=== PATIENT | male | born 1945 | race Hispanic/Latino ===

== ENCOUNTER 2016-12-14 14:15 | Observation (INO) | payer BC, MEDICARE ==
--- NOTE | 2016-12-14 15:02 | ED PDOC ---
Arrival/HPI - General Time Seen by Provider: 12/14/16 14:23 Historian: Patient, Spouse, Other (Son) - History of Present Illness Narrative History of Present Illness (Text): 12/14/16 15:09 71 yo M w h/o COPD, CAD on asa/plavix, HTN, osteoporosis presents with c/o non- bloody, intermittently bilious emesis, intermittent x 7 days. Patient's and son are at bedside in ER and state patient has had vomiting starting Tuesday ; resolved Tuesday; returned . Patient states he has been unable to tolerate most PO intake and has only kept down small amount of fluid in the past 2 days. Patient and family state he went to PMD, Dr. Steven Dixon today, found him to be hypotensive with postural decrease in SBP of ~40 points and instructed the patient to go to the ER. Patient denies diarrhea, admits to intermittent constipation, last BM this morning, normal, non-bloody, non- mucinous. Denies CP, cough, palpitations, pleurisy, new rashes or lesions. Admits to intermittent SOB, no change from baseline, lethargy, mild fatigue. Patient's was also sick last week but with diarrhea that has since resolved without any vomiting. No other sick contacts. No recent travel. No new dietary or lifestyle changes. Time/Duration: 1 week Symptom Onset: Gradual Symptom Course: Unchanged Severity Level: 6 Past Medical History - Provider Review Nursing Documentation Reviewed: Yes - Travel History Have you recently traveled outside [place] w/in the past 3 mons?: No - Cardiac Hx Pacemaker: No - Pulmonary Hx Respiratory Disorders: Yes Hx Chronic Obstructive Pulmonary Disease (COPD): Yes - Neurological Hx Paralysis: No - HEENT Hx Cataracts: Yes (surgery) - Hematological/Oncological Hx Blood Transfusions: Yes Hx Blood Transfusion Reaction: No - Integumentary Hx Dermatological Disorder: No Hx Basal Cell Carcinoma: No Hx Eczema: No Hx Melanoma: No Hx Psoriasis: No Hx Squamous Cell Carcinoma: No - Musculoskeletal/Rheumatological Hx Musculoskeletal Disorders: Yes - Psychiatric Hx Emotional Abuse: No Hx Physical Abuse: No Hx Substance Use: No - Surgical History Hx Cardiac Catheterization: Yes Hx Coronary Stent: Yes - Anesthesia Hx Anesthesia Reactions: Yes (HYPOTENSIVE AT END OF PROCEDURE IN THE PAST) Hx Malignant Hyperthermia: No - Suicidal Assessment Feels Threatened In Home Enviroment: No Family/Social History - Physician Review Nursing Documentation Reviewed: Yes Family/Social History: Hypertension, CAD/DE Smoking Status: Former Smoker Hx Alcohol Use: No Hx Substance Use: No Allergies/Home Meds Allergies/Adverse Reactions: Allergies No Known Allergies Allergy (Verified 12/14/16 15:00) Home Medications: Home Meds Medication Instructions Recorded Confirmed Aspirin [Aspir 81] 81 mg PO DAILY 06/28/13 12/14/16 Simvastatin 40 mg PO QPM 06/28/13 12/14/16 Tiotropium [place] Inhaler 1 puff IH QPM 06/28/13 12/14/16 [Spiriva Inhalation Handihaler Device] Cholecalciferol (Vitamin D3) 2,000 unit PO DAILY 10/31/15 12/14/16 [Vitamin D] Clopidogrel [Plavix] 75 mg PO DAILY 10/31/15 12/14/16 Furosemide [Lasix] 20 mg PO DAILY 10/31/15 12/14/16 Lisinopril [Zestril] 10 mg PO QAM 10/31/15 12/14/16 Metoprolol Tartrate [Lopressor] 25 mg PO BID 10/31/15 12/14/16 Ranitidine HCl [Zantac 300] 300 mg PO BID 10/31/15 12/14/16 Tramadol HCl [Ultram] 50 mg PO Q4H PRN 10/31/15 12/14/16 Calcium Carbonate [Calcium] 1 tab PO DAILY 03/23/16 12/14/16 Potassium Chloride [K-Tab ER] 10 meq PO DAILY 03/23/16 12/14/16 Review of Systems - Review of Systems Constitutional: Fatigue, Other (chills). absent: Fevers, Night Sweats Eyes: absent: Vision Changes ENT: absent: Hearing Changes, Sore Throat Respiratory: SOB (intermittent, no change from baseline) Cardiovascular: absent: Chest Pain, Palpitations, Edema, STRONG Gastrointestinal: Nausea, Vomiting, Anorexia, Food Intolerance. absent: Abdominal Pain, Diarrhea, Hematochezia, Hematemesis Genitourinary Male: absent: Dysuria Musculoskeletal: absent: Myalgias Skin: absent: Rash, Skin Lesions Neurological: Headache (mild, R frontal). absent: Dizziness, Facial Droop, Disequilibrium Physical Exam Vital Signs Temp Pulse Resp BP Pulse Ox 12/14/16 14:35 99 F 82 18 143/89 99 Temperature: Afebrile Blood Pressure: Normal Pulse: Regular Respiratory Rate: Normal Appearance: Positive for: Ill-Appearing Pain Distress: None Mental Status: Positive for: Alert and Oriented X 3 - Systems Exam Head: Present: Atraumatic, Normocephalic Pupils: Present: PERRL Extroacular Muscles: Present: EOMI Conjunctiva: Present: Normal Mouth: Present: Dry Nose (External): Present: Atraumatic Neck: Present: Normal Range of Motion. No: Meningeal Signs, JVD Respiratory/Chest: Present: Rales (BL bases). No: Clear to Auscultation Cardiovascular: Present: Regular Rate and Rhythm, Murmurs (3/6 systolic LSB), Normal S1, S2 Abdomen: Present: Normal Bowel Sounds, Other (negative murphys sign). No: Tenderness, Distention, Peritoneal Signs, McBurney's Point Tender Rectal: Present: Occult Blood, Other. No: Gross Blood Back: Present: Normal Inspection (mild thoracic kyphosis, otherwise normal) Upper Extremity: Present: Normal Inspection Lower Extremity: Present: Normal Inspection, Capillary Refill < 2 s (delayed). No: Edema, CALF TENDERNESS Neurological: Present: GCS=15, CN II-XII Intact, Speech Normal Skin: Present: Warm, Dry, Pale. No: Rashes Lymphatic: No: Cervical Adenopathy Psychiatric: Present: Alert, Oriented x 3, Normal Insight, Normal Concentration Medical Decision Making ED Course and Treatment: 12/14/16 15:39 Rectal exam showed yellow/brown stool in rectum. No gross blood. Occult blood positive. 12/14/16 17:39 CXR shows moderate vascular congestion. Patient re-examined, still feels weak, nausea improved s/p zofran. 12/14/16 17:[address] Mcarthur, covering for Dr. Dixon, requests admission to telemetry, cardio consult, notify resident. Resident notified of admission and case discussed. - Lab Interpretations Lab Results: 12/14/16 15:30 12/14/16 15:30 Lab Results 12/14/16 15:30: WBC 11.0 D, RBC 3.33 L, Hgb 11.1 L, Hct 31.9 L, MCV 95.8, MCH 33.3, MCHC 34.8, RDW 13.2, Plt Count 373, MPV 8.7, Gran % 76.6 H, Lymph % (Auto ) 13.5 L, Hale % (Auto) 9.1 H, Eos % (Auto) 0.5 L, Baso % (Auto) 0.3, Gran # 8.47 H, Lymph # 1.5, Hale # 1.0 H, Eos # 0.1, Baso # 0.03, PT 12.1 H, INR 1.12 H , APTT 31.7 H, Sodium 133, Potassium 4.3, Chloride 95 L, Carbon Dioxide 27, Anion Gap 15, BUN 11, Creatinine 1.0, Est GFR ( Amer) > 60, Est GFR (Non- Af Amer) > 60, Random Glucose 123 H, Calcium 9.2, Total Bilirubin 1.1, Direct Bilirubin 0.5 H, AST 22, ALT 27, Alkaline Phosphatase 123, Troponin I 0.02, NT- Pro-B Natriuret Pep 922 H, Total Protein 7.0, Albumin 3.5, Globulin 3.5, Albumin /Globulin Ratio 1.0 L I have reviewed the lab results: Yes (elevated BNP, unknown baseline) Interpretation: Abnormal lab values (slightly elevated bnp) - RAD Interpretation Radiology Orders: 12/14/16 16:27 CHEST PORTABLE [RAD] Stat - EKG Interpretation EKG Interpretation (Text): 12/14/16 15:35 NSR 82bpm, LVH, nonspecific ST-T wave changes, no change vs 09/04/2015 Type: 12 lead EKG Comparison: Similar to previous EKG - Medication Orders Current Medication Orders: Aspirin (Ecotrin) 81 mg PO DAILY [facility] Atorvastatin Calcium (Lipitor) 20 mg PO DIN [facility] Clopidogrel Bisulfate (Plavix) 75 mg PO DAILY [facility] Ceftriaxone Sodium (Rocephin 1 Gram Ivpb) 100 mls @ 100 mls/hr IVPB DAILY [facility] PRN Reason: Protocol Pantoprazole Sodium (Protonix Ec Tab) 20 mg PO 0730 [facility] Discontinued Medications Albuterol/Ipratropium (Duoneb 3 Mg/0.5 Mg (3 Ml) Ud) 3 ml IH STAT STA Stop: 12/14/16 16:02 Last Admin: 12/14/16 16:58 Dose: 3 ML Sodium Chloride (Sodium Chloride 0.9%) 1,000 mls @ 999 mls/hr IV .Q1H1M STA Stop: 12/14/16 17:00 Last Admin: 12/14/16 16:58 Dose: 999 MLS/HR eMAR Start Stop Document 12/14/16 16:58 EMILIANA (Rec: 12/14/16 16:58 EMILIANA [id number]) Intravenous Solution Start Date 12/14/16 Start Time 16:58 End Date 12/14/16 End time 17:59 Total Infusion Time 61 Ondansetron HCl (Zofran Inj) 4 mg IVP ONCE ONE Stop: 12/14/16 15:42 Last Admin: 12/14/16 15:54 Dose: 4 MG IVP Administration Document 12/14/16 15:54 EMILIANA (Rec: 12/14/16 15:54 EMILIANA [id number]) Charges for Administration # of IVP Administrations 1 Disposition/Present on Arrival - Present on Arrival Any Indicators Present on Arrival: No History of DVT/PE: No History of Uncontrolled Diabetes: No Urinary Catheter: No History Surgical Site Infection Following: None - Disposition Have Diagnosis and Disposition been Completed?: Yes Diagnosis: Dehydration, Acute bronchitis, Intractable vomiting with nausea Disposition: HOSPITALIZED Disposition Time: 17:44 Patient Plan: Observation Patient Problems: Current Active Problems Problem Status Diagnosed Acute bronchitis Acute Dehydration Acute Intractable vomiting with nausea Acute Condition: FAIR Referrals: Steven Dixon MD [Primary Care Provider] - Follow up with primary
[2016-12-14 15:35] LABS: ADD MANUAL DIFF? NO
[2016-12-14 15:44] LABS: BASO # 0.03 K/mm3 (0.0-2.0); BASO % 0.3 % (0.0-3.0); EOS # 0.1 (0.0-0.7); EOS % 0.5 % (1.5-5.0); GRAN # 8.47 (1.4-6.5); GRAN % 76.6 % (50.0-68.0); HEMATOCRIT 31.9 % (42.0-52.0); LYMPH # 1.5 (1.2-3.4); LYMPH % 13.5 % (22.0-35.0); MEAN CELL VOLUME 95.8 fL (80.0-105.0); MEAN CORPUSCULAR HEMOGLOBIN 33.3 pg (25.0-35.0); MEAN CORPUSCULAR HGB CONC 34.8 g/dl (31.0-37.0); MEAN PLATELET VOLUME 8.7 fl (7.0-11.0); MONO % 9.1 % (1.0-6.0); PLATELET COUNT 373 10^3/uL (120.0-450.0); RED CELL DISTRIBUTION WIDTH 13.2 % (11.5-14.5)
[2016-12-14 15:55] LABS: ALKALINE PHOSPHATASE 123 U/L (38-133); ALT/SGPT 27 U/L (7-56); AST/SGOT 22 U/L (15-59); BILIRUBIN,DIRECT 0.5 mg/dL (0.0-0.4); BILIRUBIN,TOTAL 1.1 mg/dL (0.2-1.3); BLOOD UREA NITROGEN 11 mg/dL (7-21); CALCIUM 9.2 mg/dL (8.4-10.5); CARBON DIOXIDE 27 mmol/L (21-33); CHLORIDE 95 mmol/L (98-107); GFR AFRICAN-AMERICAN > 60; GLUCOSE,RANDOM 123 mg/dL (70-110); POTASSIUM 4.3 mmol/L (3.6-5.0); SODIUM 133 mmol/L (132-148)
[2016-12-14 15:56] LABS: INR 1.12 (0.93-1.08); PARTIAL THROMBOPLASTIN TIME 31.7 Seconds (23.7-30.8)
[2016-12-14] MEDS ORDERED: Sodium Chloride 0.9% 1,000 ML IV STA (16:00)
[2016-12-14] MEDS ORDERED: Albuterol-Ipratrop 3 mg / 0.5 (3 ml) UD IH STA (16:01)
[2016-12-14 17:40] LABS: TROPONIN I 0.02 ng/mL
[2016-12-14] MEDS: cefTRIAXone 1 gm 100 ML IVPB SCH (17:48)
[2016-12-14 18:03] LABS: URINE BILIRUBIN NEGATIVE (NEGATIVE); URINE BLOOD NEGATIVE (NEGATIVE); URINE GLUCOSE (UA) NEGATIVE (NEGATIVE); URINE KETONE NEGATIVE (NEGATIVE); URINE LEUKOCYTE ESTERASE NEGATIVE Leu/uL (NEGATIVE); URINE PROTEIN NEGATIVE mg/dL (<30 mg/dL); URINE UROBILINOGEN 0.2 E.U./dL (<1 E.U./dL)
[2016-12-14 18:04] LABS: URINE APPEARANCE CLEAR (CLEAR); URINE COLOR YELLOW (YELLOW)
[2016-12-14] MEDS ORDERED: Albuterol-Ipratrop 3 mg / 0.5 (3 ml) UD IH PRN (18:49)
--- NOTE | 2016-12-14 20:39 | CP.PCM.HP ---
<Lopez Wakefield - Last Filed: 12/14/16 21:04> History of Present Illness - History of Present Illness History of Present Illness: cc: Nausea/Vomiting HPI: Patient is a 71yo male with past medical history of CAD s/p 2 stents placed , CHF (unknown EF), COPD, ILD, HTN, HLD and SD that presented to [facility] c/o intermittent nausea and vomiting for the past 1 week. Patient states that last Tuesday he began to feel nauseous and had an episode of nonbilious, nonbloody vomiting. He reported that his was also feeling unwell and had multiple episodes of diarrhea. They reported that they originally attributed their illness to a viral gastroenteritis however the patient reports that after several days he continued to have sporadic bouts of nausea and vomiting. The patient also stated that his nausea/vomiting was associated with lack of appetite, shortness of breath, chills and a productive cough (green sputum). Patient reported that he decided to follow up with his primary care doctor, Dr. Dixon and was found to be orthostatic in the office with a postural decrease in SBP of approximately 30mmHg and instructed to go to the emergency room for further evaluation. On arrival to the ED, the patient vitals were as follows: temperature 99.0F, heart rate 82bpm, blood pressure 143/ 89, RR 18, O2sat 99% on room air. His labs were notable for a NT-ProBNP of 922. A chest xray revealed pulmonary vascular congestion and possible infiltrate in the right lower lobe. An EKG revealed normal sinus rhythm with no acute ST-T wave changes. He denied chest pain, palpitations, abdominal pain, diarrhea, melena, hematemesis, hematochezia, fever, focal weakness, numbness, tingling, dysuria, frequency, urgency. 12point ROS as per HPI above, otherwise negative PMHx: CAD s/p 2 stents placed, CHF (unknown EF), COPD, ILD, HTN, HLD, SD PSHx: 2 stent placement Allergies: NKDA Medications: Reviewed and as per chart Family Hx: Mother: CAD; Father: CVA, Arthritis Social Hx: Former tobacco use (quit ~10yrs ago, smoked 2-3ppd for ~20yrs); Former alcohol use daily; Denies illicit drugs; Lives with his Present on Admission - Present on Admission Any Indicators Present on Admission: No Past Patient History - Infectious Disease Hx of Infectious Diseases: None - Past Social History Smoking Status: Former Smoker - CARDIAC Hx Pacemaker: No - PULMONARY Hx Respiratory Disorders: Yes Hx Chronic Obstructive Pulmonary Disease (COPD): Yes - NEUROLOGICAL Hx Paralysis: No - HEENT Hx Cataracts: Yes (surgery) - HEMATOLOGICAL/ONCOLOGICAL Hx Blood Transfusions: Yes Hx Blood Transfusion Reaction: No - INTEGUMENTARY Hx Dermatological Problems: No Hx Basil Cell: No Hx Eczema: No Hx Melanoma: No Hx Psoriasis: No Hx Squamous Cell: No - MUSCULOSKELETAL/RHEUMATOLOGICAL Hx Musculoskeletal Disorders: Yes - PSYCHIATRIC Hx Emotional Abuse: No Hx Physical Abuse: No Hx Substance Use: No - SURGICAL HISTORY Hx Cardiac Catheterization: Yes Hx Coronary Stent: Yes - ANESTHESIA Hx Anesthesia Reactions: Yes (HYPOTENSIVE AT END OF PROCEDURE IN THE PAST) Hx Malignant Hyperthermia: No Meds Allergies/Adverse Reactions: Allergies Allergy/AdvReac Type Severity Reaction Status Date / Time No Known Allergies Allergy Verified 12/14/16 15:00 Physical Exam - Constitutional Appears: Well, Non-toxic, No Acute Distress - Head Exam Head Exam: ATRAUMATIC, NORMAL INSPECTION, NORMOCEPHALIC - Eye Exam Eye Exam: EOMI, Normal appearance, PERRL - ENT Exam ENT Exam: Mucous Membranes Moist - Neck Exam Neck exam: Positive for: Normal Inspection. Negative for: Lymphadenopathy, Tenderness, Thyromegaly - Respiratory Exam Respiratory Exam: Rales, NORMAL BREATHING PATTERN. absent: Accessory Muscle Use , Chest Wall Tenderness, Rhonchi, Wheezes, Respiratory Distress Additional comments: bilateral rales at the bases no appreciated wheezing or ronchi - Cardiovascular Exam Cardiovascular Exam: REGULAR RHYTHM, RRR. absent: Bradycardia, Tachycardia, Diastolic murmur, Irregular Rhythm, JVD, Rubs - GI/Abdominal Exam GI & Abdominal Exam: Normal Bowel Sounds, Soft. absent: Distended, Firm, Guarding, Rebound, Rigid, Tenderness - Extremities Exam Extremities exam: Positive for: normal inspection, pedal pulses present. Negative for: calf tenderness, pedal edema, tenderness - Back Exam Back exam: NORMAL INSPECTION - Neurological Exam Neurological exam: Alert, CN II-XII Intact, Oriented x3 - Psychiatric Exam Psychiatric exam: Normal Affect, Normal Mood - Skin Skin Exam: Dry, Intact, Normal Color, Warm Results - Vital Signs Recent Vital Signs: Last Vital Signs Temp 98.8 F 12/14/16 19:38 Pulse 98 H 12/14/16 19:38 Resp 16 12/14/16 19:38 BP 131/57 L 12/14/16 19:38 Pulse Ox 96 12/14/16 19:38 - Labs Result Diagrams: 12/14/16 15:30 12/14/16 15:30 Assessment & Plan - Assessment and Plan (Free Text) Assessment: 71yo male with history of CAD, CHF, ILD, COPD, HTN, HLD and SD presents c/o nausea and vomiting for 1 week duration associated with shortness of breath, productive cough and chills. Plan: 1. Nausea/vomiting/productive cough -afebrile, no leukocytosis however left shift; will trend -Zofran and 1L fluid bolus given in the ED -Blood, urine, sputum cultures pending -Procalcitonin pending -CXR reviewed; suspicious for infiltrate -Continue rocephin and clindamycin 2. CHF, appears compensated -Echocardiogram pending -CXR reveals mild-moderate pulmonary vascular congestion -EKG reviewed; no acute ST-T wave changes -NT-proBNP 922 -Continue lasix 20mg IV q12h -Strict I's and O's; Daily weight; Heart healthy diet -Cardiology consulted - Dr. Reyes 3. COPD -Duoneb q2h PRN -Continue home med spiriva 4. CAD -Continue ASA and plavix -Continue metoprolol 5. Hyperlipidemia -Continue lipitor 6. Hypertension -Continue lisinopril 7. GI/DVT Prophylaxis -Protonix/lovenox Case discussed with attending, Dr. Mcarthur - Date & Time Date: 12/14/16 Time: 20:49 <Cleveland Mcarthur - Last Filed: 01/07/17 09:34> Results - Vital Signs Recent Vital Signs: Last Vital Signs Temp 97.8 F 12/16/16 12:00 Pulse 78 12/16/16 14:00 Resp 15 12/16/16 12:00 BP 117/67 12/16/16 12:00 Pulse Ox 16 L 12/14/16 21:18 - Labs Result Diagrams: 12/16/16 06:20 12/16/16 06:20 Attending/Attestation - Attestation I have personally seen and examined this patient.: Yes I have fully participated in the care of the patient.: Yes I have reviewed all pertinent clinical information: Yes Notes (Text): 01/07/17 09:34 Medical record note made by the resident after discussion with my direction and input after the patient was personally seen and examined by me. I have reviewed the chart and agree that the record accurately reflects by personal performance of the history, physical exam, data review, and medical decision-making, in the course for the patient. I have also personally directed the plan of care.
[2016-12-14 21:19] VITALS: O2SAT 16
[2016-12-15 02:35] VITALS: BMI 24.0
[2016-12-15] MEDS: Pantoprazole 20 mg EC Tab PO SCH (07:31)
[2016-12-15 07:47] LABS: ADD MANUAL DIFF? NO
[2016-12-15 07:52] LABS: BASO # 0.02 K/mm3 (0.0-2.0); BASO % 0.2 % (0.0-3.0); EOS # 0.1 (0.0-0.7); EOS % 0.6 % (1.5-5.0); GRAN # 6.04 (1.4-6.5); GRAN % 72.7 % (50.0-68.0); HEMATOCRIT 29.8 % (42.0-52.0); LYMPH # 1.4 (1.2-3.4); LYMPH % 16.6 % (22.0-35.0); MEAN CELL VOLUME 97.4 fL (80.0-105.0); MEAN CORPUSCULAR HEMOGLOBIN 32.7 pg (25.0-35.0); MEAN CORPUSCULAR HGB CONC 33.6 g/dl (31.0-37.0); MEAN PLATELET VOLUME 8.6 fl (7.0-11.0); MONO # 0.8 (0.1-0.6); MONO % 9.9 % (1.0-6.0); PLATELET COUNT 342 10^3/uL (120.0-450.0); RED CELL DISTRIBUTION WIDTH 13.4 % (11.5-14.5); WHITE BLOOD COUNT 8.3 10^3/ul (4.5-11.0)
--- NOTE | 2016-12-15 08:21 | CARD ---
APPROVED REPORT EKG Measurement Heart [id number] [id number] [id number] <Conclusion> Normal sinus rhythm Possible Left atrial enlargement Left axis deviation Inferior-posterior infarct, age undetermined Abnormal ECG
[2016-12-15 08:23] LABS: ALB/GLOB RATIO 0.9 (1.1-1.8); ALKALINE PHOSPHATASE 109 U/L (38-133); ALT/SGPT 28 U/L (7-56); AST/SGOT 36 U/L (15-59); BILIRUBIN,TOTAL 0.9 mg/dL (0.2-1.3); BLOOD UREA NITROGEN 11 mg/dL (7-21); CALCIUM 8.6 mg/dL (8.4-10.5); CARBON DIOXIDE 30 mmol/L (21-33); CHLORIDE 96 mmol/L (98-107); GFR AFRICAN-AMERICAN > 60; GLUCOSE,RANDOM 103 mg/dL (70-110); MAGNESIUM 1.9 mg/dL (1.7-2.2); PHOSPHOROUS 3.3 mg/dL (2.5-4.5); POTASSIUM 3.9 mmol/L (3.6-5.0); SODIUM 134 mmol/L (132-148); TOTAL PROTEIN 7.1 g/dL (5.8-8.3); TROPONIN I 0.02 ng/mL
--- NOTE | 2016-12-15 09:21 | RAD ---
HISTORY: ligthheaded COMPARISON: 09/03/2015 FINDINGS: LUNGS: Bilateral diffuse mostly peripheral interstitial lung disease is re- suggested. No interval infiltrate noted. The strandy fibrotic changes lung base to the right hilum are similar appearing. No interval extensive consolidation suggested PLEURA: No significant pleural effusion identified, no pneumothorax apparent. CARDIOVASCULAR: Minimal cardiomegaly OSSEOUS STRUCTURES: Dextroscoliosis VISUALIZED UPPER ABDOMEN: Normal. OTHER FINDINGS: A hiatal hernia is suggested on the current exam IMPRESSION: Chronic interstitial lung disease. No interval infiltrates suggested. No pleural effusions or pneumothoraces Cardiomegaly as before Interval suggestion of a hiatal hernia
[2016-12-15] MEDS ORDERED: Non Formulary Medication (Cholecalciferol (Vitamin D3) [Vitamin D3] 2,000 UNIT) PO SCH (10:00)
--- NOTE | 2016-12-15 11:02 | CP.PCM.PN ---
<Lopez Wakefield - Last Filed: 12/15/16 14:41> Subjective - Date & Time of Evaluation Date of Evaluation: 12/15/16 Time of Evaluation: 10:59 - Subjective Subjective: Medicine progress note - Lopez Wakefield PGY1 Patient seen and examined at bedside this morning. Patient denies any overnight events or new complaints. Reports feeling better this morning. Patient is aware of pending workup. Denies chest pain, palpitations, SOB, abdominal pain, nausea , vomiting. Objective - Vital Signs/Intake and Output Vital Signs (last 24 hours): Temp Pulse Resp BP Pulse Ox 99.1 F 93 H 20 118/58 L 16 L 12/15/16 05:34 12/15/16 05:34 12/15/16 05:34 12/15/16 05:34 12/14/16 21:18 Intake and Output: 12/15/16 12/15/16 06:59 18:59 Intake Total 120 Output Total 800 Balance -680 - Medications Medications: Current Medications Albuterol/Ipratropium (Duoneb 3 Mg/0.5 Mg (3 Ml) Ud) 3 ml IH Q2H PRN PRN Reason: Shortness of Breath Aspirin (Ecotrin) 81 mg PO DAILY [facility] Atorvastatin Calcium (Lipitor) 20 mg PO DIN [facility] Last Admin: 12/14/16 17:48 Dose: 20 mg Calcium Carbonate (Oscal) 500 mg PO DAILY [facility] Cholecalciferol (Vitamin D) 2,000 iu PO DAILY [facility] Clopidogrel Bisulfate (Plavix) 75 mg PO DAILY [facility] Enoxaparin Sodium (Lovenox) 40 mg SC DAILY [facility] PRN Reason: Protocol Furosemide (Lasix) 20 mg PO DAILY [facility] Ceftriaxone Sodium (Rocephin 1 Gram Ivpb) 100 mls @ 100 mls/hr IVPB DAILY [facility] PRN Reason: Protocol Last Admin: 12/14/16 17:48 Dose: 100 mls/hr Clindamycin Phosphate 600 mg/ (Sodium Chloride) 54 mls @ 102 mls/hr IVPB Q8 [facility] PRN Reason: Protocol Last Admin: 12/15/16 06:56 Dose: 102 mls/hr Lisinopril (Zestril) 10 mg PO DAILY [facility] Metoprolol Tartrate (Lopressor) 25 mg PO BID [facility] Pantoprazole Sodium (Protonix Ec Tab) 20 mg PO 0730 [facility] Last Admin: 12/15/16 07:31 Dose: 20 mg Tiotropium [place] (Spiriva) 18 mcg IH QPM AAYUSH - Labs Labs: 12/15/16 06:30 12/15/16 06:30 PT 12.1 Seconds (9.9-11.8) H 12/14/16 15:30 INR 1.12 (0.93-1.08) H 12/14/16 15:30 APTT 31.7 Seconds (23.7-30.8) H 12/14/16 15:30 - Constitutional Appears: Well, Non-toxic, No Acute Distress - Head Exam Head Exam: ATRAUMATIC, NORMAL INSPECTION, NORMOCEPHALIC - Eye Exam Eye Exam: EOMI, PERRL. absent: Conjunctival injection, Scleral icterus - ENT Exam ENT Exam: Mucous Membranes Moist - Neck Exam Neck Exam: Normal Inspection. absent: Lymphadenopathy, Tenderness, Thyromegaly - Respiratory Exam Respiratory Exam: Rales. absent: Rhonchi, Wheezes Additional comments: rales at bases bilaterally - Cardiovascular Exam Cardiovascular Exam: RRR, +S1, +S2. absent: Clicks, Diastolic murmur, Gallop, JVD, Rubs, Murmur - GI/Abdominal Exam GI & Abdominal Exam: Soft, Normal Bowel Sounds. absent: Distended, Firm, Guarding, Rigid, Tenderness, Rebound - Neurological Exam Neurological Exam: Alert, Awake, CN II-XII Intact, Oriented x3 - Psychiatric Exam Psychiatric exam: Normal Affect, Normal Mood - Skin Skin Exam: Dry, Intact, Normal Color, Warm Assessment and Plan - Assessment and Plan (Free Text) Assessment: 71yo male with history of CAD, CHF, ILD, COPD, HTN, HLD and ME presents c/o sporadic bouts of nausea and vomiting for 1 week duration associated with shortness of breath, productive cough and chills. Plan: 1. Nausea/vomiting/orthostatic -afebrile, no leukocytosis -Orthostatic in the ED: layin/83, sittin/77, standin/66 -Zofran and 1L fluid bolus given in the ED -Blood, urine, sputum cultures pending -Procalcitonin pending -MRI brain without contrast pending -CXR reviewed -Continue rocephin and clindamycin pending infectious workup -GI consulted - Dr. Wong -Neurology consulted - Dr. Bee 2. CHF, compensated -Echocardiogram pending -CXR and EKG reviewed -NT-proBNP 922 -Continue lasix 20mg PO qD -A1C, TSH pending -Strict I's and O's; Daily weight; Heart healthy diet -Cardiology consulted - Dr. Mcgarry 3. ILD/COPD -Duoneb q2h PRN -Continue home med spiriva -Pulmonology consulted - Dr. Valdivia 4. Anemia -Workup pending: Iron, Ferritin, TIBC, LDH, reticulocyte count, Vitb12, folate 5. CAD -Continue ASA and plavix -Continue metoprolol 6. Hyperlipidemia -Continue lipitor 7. Hypertension -Continue lisinopril 8. GI/DVT Prophylaxis -Protonix/lovenox Case discussed with attending, Dr. Dixon <Steven Dixon - Last Filed: 01/12/17 10:52> Objective - Vital Signs/Intake and Output Vital Signs (last 24 hours): Temp Pulse Resp BP Pulse Ox 97.8 F 78 15 117/67 16 L 12/16/16 12:00 12/16/16 14:00 12/16/16 12:00 12/16/16 12:00 12/14/16 21:18 - Labs Labs: 12/16/16 06:20 12/16/16 06:20 PT 12.1 Seconds (9.9-11.8) H 12/14/16 15:30 INR 1.12 (0.93-1.08) H 12/14/16 15:30 APTT 31.7 Seconds (23.7-30.8) H 12/14/16 15:30 Attending/Attestation - Attestation I have personally seen and examined this patient.: Yes I have fully participated in the care of the patient.: Yes I have reviewed all pertinent clinical information, including history, physical exam and plan: Yes Notes (Text): 01/12/17 10:52 Medial record note done by resident after patient personally seen and examined by me. I have reviewed the chart and agree that the record accurately reflects my personal evaluation, data review, and course for the patient.
[2016-12-15 11:25] LABS: RETIC% 2.14 % (0.5-1.5)
[2016-12-15 11:37] LABS: IRON 56 ug/dL (45-180)
--- NOTE | 2016-12-15 11:48 | CON ---
DATE: 12/15/2016 REASON FOR CONSULTATION: Interstitial lung disease. REFERRING PHYSICIAN: Dr. Steven Dixon. History is obtained via extensive discussion with the patient and . I have also reviewed the chart at length. HISTORY OF PRESENT ILLNESS: The patient is a 71-year-old male with past medical history significant for chronic obstructive pulmonary disease, interstitial lung disease; coronary artery disease, status post cardiac stents, cardiac arrhythmias, who presents to [facility] with main complaints of nausea and vomiting "on and off" for the past 7 days. There is no history of abdominal pain or diarrhea. However, the did have a diarrheal illness last week. Apparently, the patient did see Dr. Dixon yesterday in the office. Dr. Dixon did note that the patient was orthostatic , and sent the patient in the Emergency Room for additional evaluation and treatment. The patient is not short of breath at rest. He does have chronic mild dyspnea on exertion - unchanged. He also has a chronic occasional cough with minimal sputum production - also unchanged. There is no history of chest pain, coughing up of blood or chest pain - made worse with deep respirations. There is no history of temperatures, chills at home. However, the patient did have low-grade temperatures in the hospital(ER). There is no history of night sweats , weight loss or appetite change prior to the above events. No history of leg or calf pains. No history of syncope or diaphoresis. No history of recent travel or trauma. REVIEW OF SYSTEMS: No acute urinary symptoms. No new neurological or musculoskeletal complaints. Rest of the review of systems is negative. ALLERGIES: No known allergies. SOCIAL HISTORY: Positive for tobacco, negative for alcohol. FAMILY HISTORY: No inheritable diseases. HOME MEDICATIONS: Include Spiriva, Zantac, Lopressor, calcium, Lasix, Zestril, Plavix, Ultram, and Advair. PHYSICAL EXAMINATION: GENERAL: The patient is comfortable at rest. He is not short of breath. VITAL SIGNS: Temperature is 99.1, pulse on the monitor is 84, respiratory rate 18, blood pressure 118/58. Oxygen saturation on room air is 99%. HEENT: Normocephalic, atraumatic. NECK: No JVD. CARDIOVASCULAR: Systolic ejection murmur at the lower left sternal border. No S3 gallop. LUNGS: Minimal crackles at the bases - chronic. No rhonchi or wheezing. EXTREMITIES: Mild edema. No cyanosis, no clubbing. Calves are nontender to palpation. GASTROINTESTINAL: Abdomen is soft, nontender, nondistended. Bowel sounds are positive. SKIN: No acute rash. NEUROLOGIC: Limited at the present time. PERTINENT LABORATORY DATA: Chest x-ray was done and reviewed. There are chronic interstitial changes noted. The chest x-ray done yesterday is not significantly changed from the previous films. CBC: White count 8.3, hemoglobin 10.0, hematocrit 29.8, platelets of 342. Complete metabolic profile : Chloride 96. Rest of the metabolic profile is within normal limits. IMPRESSION: 1. Nausea and vomiting - rule out gastroenteritis. 2. Anemia. 3. Interstitial lung disease. 4. Chronic obstructive pulmonary disease. 5. Coronary artery disease. PLAN: Again, I did discuss the case with the patient and at length. The patient presents to [facility] with a 7-day history of nausea and vomiting. Again, there is no history of abdominal pain or diarrhea. However, again, the was sick with a diarrheal illness last week. Apparently, the patient did see Dr. Dixon in the office yesterday. Dr. Dixon did note orthostatic hypotension - and sent the patient to the Emergency Room-- for additional evaluation and treatment. I did review the chest x-ray as above. There are chronic interstitial changes noted. On physical exam, there is no significant bronchospasm noted. In addition, there is no significant alveolar arterial gradient. Oxygen saturation on room air is 99%. The patient has been started on Spiriva. I will also start inhaled Brovana and Pulmicort - while in the hospital. The patient is on Advair at home. GI evaluation is ordered. Neurology evaluation is also ordered. Repeat a.m. labs are ordered. The patient does feel better at the present time - compared to the past few days. Additional pulmonary intervention will be based on the clinical status of the patient. I will discuss the above with Dr. Dixon. Thank you very much for this pulmonary consultation. John Valdivia MD cc: [id number] TT: 12/15/2016 11:47:53 Confirmation # [id number] Dictation # [id number] mn MTDD
[2016-12-15] MEDS: cefTRIAXone 1 gm 100 ML IVPB SCH (13:58)
[2016-12-15] MEDS: Enoxaparin 40 mg Syringe SC SCH (14:00)
[2016-12-15 14:48] LABS: FREE T4 1.8 ng/dL (0.78-2.19); T4 8.3 ug/dL (5.5-11.0)
--- NOTE | 2016-12-15 15:08 | CON ---
DATE: 12/15/2016 REQUESTING PHYSICIAN: Dr. Dixon. REASON FOR CONSULTATION: Transient hypotension, coronary artery disease. HISTORY OF PRESENT ILLNESS: This is a 71-year-old man well known to me with a history of coronary ar ling disease, status post remote PCI and myocardial infarction, who presented with nausea and vomitin g for over 1 week. He was seen in the office by Dr. Dixon and found to have evidence of orthostas is. He was noted to be orthostatic. He denied any chest pain. He was advised admission. He has be en fairly stable from a cardiac standpoint as of late. He does have known coronary artery disease an d suffered a myocardial infarction in 2008. He underwent PCI of his RCA at that time. Followup cath eterization in 2014 revealed left main stem with 30% lesion. The LAD had a 50% ostial lesion. Left circumflex artery had a 60% lesion in the mid portion and the right coronary artery had a 40% lesion in the mid portion with patent stents. Ejection fraction was 50% at that time. He does have a histo ry of hyperlipidemia, remote tobacco abuse, hypertension, interstitial lung disease, osteoarthritis, and anemia. He was admitted with diverticulitis in 2016. He also has colonic polyps. CURRENT MEDICATIONS: Include aspirin, Plavix, metoprolol 25 mg b.i.d., simvastatin 40 mg daily, Adva ir, lisinopril 10 mg daily, Spiriva, Zantac, Lasix 20 mg daily, Ultram p.r.n. and Linzess. ALLERGIES: He has no reported allergies. FAMILY HISTORY: Both parents lived into their 90s. SOCIAL HISTORY: He denies alcohol use. He was a smoker of 2 packs per day for many years, but quit in 2009. He is and lives with his . REVIEW OF SYSTEMS: A 10-point review of systems is notable mainly for the problems mentioned above. PHYSICAL EXAMINATION: GENERAL: He is a middle-aged man who appears comfortable at the present time. VITAL SIGNS: His blood pressure is 158/86 with a pulse of 90 in sinus. Respirations are 16. He is afebrile. HEENT: Normocephalic, atraumatic. NECK: Supple. No JVD noted. CHEST: Bilateral scattered rhonchi heard. No rales noted. HEART: PMI displaced laterally with a systolic murmur present at the left sternal border and apex. ABDOMEN: Soft, nontender with normoactive bowel sounds. EXTREMITIES: No edema. SKIN: Warm and dry. PSYCHIATRIC: Normal mood and affect. NEUROLOGIC: Alert and oriented x 3. No gross motor or sensory deficits appreciable. DIAGNOSTIC DATA: White count is 8.3, hemoglobin and hematocrit 10.0 and 29.8 with a platelet count o f 342,000. Potassium 3.9, BUN and creatinine are 11 and 0.9. Three sets of cardiac enzymes are nega tive. BNP is 922. TSH is 0.2. Electrocardiogram reveals sinus rhythm with a left axis deviation. A remote inferior posterior myocardial infarction pattern is present. Chest x-ray reveals increased cardiac silhouette with chronic interstitial lung changes. IMPRESSION: 1. Recent orthostasis, hypotension likely due to volume depletion given recent nausea and vomiting. 2. Coronary artery disease, clinically stable at the present time. 3. History of chronic obstructive pulmonary disease, stable as well. 4. Elevated BNP, likely chronic given degree of lung disease. RECOMMENDATIONS: Diuretic therapy will be withheld for now. If necessary, gentle hydration can be a dministered. Rest of cardiac medications should continue unchanged. We will continue to follow darlyn urrutia and make further recommendations as appropriate. Thank you for this consultation. Gilberto Mcgarry MD cc: [id number] TT: 12/15/2016 15:07:40 Confirmation # [id number] Dictation # [id number] tn
[2016-12-15 17:23] LABS: FOLATE > 20.0 ng/mL
[2016-12-15] MEDS ORDERED: Tiotropium 18 mcg Cap For Inhalation IH SCH ×2 (18:00)
[2016-12-15] MEDS: Arformoterol 15 mcg/2 ml Inh Sol IH SCH (20:30)
[2016-12-15] MEDS: Budesonide 0.5 mg/2 ml Inhal Susp UD IH SCH (20:30)
[2016-12-16 06:52] LABS: ADD MANUAL DIFF? NO
[2016-12-16 07:19] LABS: BASO # 0.02 K/mm3 (0.0-2.0); BASO % 0.2 % (0.0-3.0); EOS # 0.1 (0.0-0.7); EOS % 1.2 % (1.5-5.0); GRAN # 6.92 (1.4-6.5); HEMATOCRIT 29.2 % (42.0-52.0); LYMPH # 1.3 (1.2-3.4); MEAN CELL VOLUME 96.4 fL (80.0-105.0); MEAN CORPUSCULAR HEMOGLOBIN 32.7 pg (25.0-35.0); MEAN CORPUSCULAR HGB CONC 33.9 g/dl (31.0-37.0); MEAN PLATELET VOLUME 8.7 fl (7.0-11.0); MONO # 0.7 (0.1-0.6); MONO % 7.6 % (1.0-6.0); PLATELET COUNT 364 10^3/uL (120.0-450.0); RED CELL DISTRIBUTION WIDTH 13.4 % (11.5-14.5)
[2016-12-16 07:24] LABS: ALKALINE PHOSPHATASE 101 U/L (38-133); ALT/SGPT 34 U/L (7-56); AST/SGOT 58 U/L (15-59); BILIRUBIN,TOTAL 0.9 mg/dL (0.2-1.3); BLOOD UREA NITROGEN 11 mg/dL (7-21); CARBON DIOXIDE 27 mmol/L (21-33); CHLORIDE 94 mmol/L (98-107); GFR AFRICAN-AMERICAN > 60; GLUCOSE,RANDOM 97 mg/dL (70-110); POTASSIUM 3.8 mmol/L (3.6-5.0); SODIUM 132 mmol/L (132-148); TOTAL PROTEIN 7.1 g/dL (5.8-8.3)
[2016-12-16] MEDS: Budesonide 0.5 mg/2 ml Inhal Susp UD IH SCH (07:29)
[2016-12-16] MEDS: Arformoterol 15 mcg/2 ml Inh Sol IH SCH (07:29)
--- NOTE | 2016-12-16 08:23 | PN ---
DATE: 12/16/2016 SUBJECTIVE: The patient appears very comfortable this morning. He is not short of breath at rest. PHYSICAL EXAMINATION: VITAL SIGNS: Temperature is 98.2, pulse 81, respirations 19, blood pressure 110 /68. HEENT: Normocephalic, atraumatic. No JVD. CARDIOVASCULAR: Systolic ejection murmur at the lower left sternal border. No S3 gallop. LUNGS: Minimal crackles at the bases -- chronic. No rhonchi. No wheezing. EXTREMITIES: Mild edema. No cyanosis, no clubbing. Calves are nontender to palpation. GASTROINTESTINAL: Abdomen is soft, nontender, nondistended. Bowel sounds are positive. SKIN: No acute rash. NEUROLOGIC: Limited at the present time. IMPRESSION: 1. Nausea and vomiting -- rule out gastroenteritis -- now resolved. 2. Anemia. 3. Interstitial lung disease. 4. Chronic obstructive pulmonary disease. 5. Coronary artery disease. PLAN: The patient appears very comfortable this morning. He is not short of breath at rest. His nausea and vomiting have now resolved. He states he is feeling much, much better overall. On physical exam, there is no significant bronchospasm noted. In addition, there is no significant alveolar-arterial gradient. I will continue with the current nebulizer treatments and inhaled steroids for now. The patient remains on antibiotic therapy. There are no temperatures noted. There is no leukocytosis. Gastrointestinal and neurologic evaluations are noted. Clinical status of the patient is significantly improved. I will discuss the above with the attending physician. John Valdivia MD cc: [id number] TT: 12/16/2016 08:23:18 Confirmation # [id number] Dictation # [id number] MTDD
[2016-12-16] MEDS: Pantoprazole 20 mg EC Tab PO SCH (08:49)
[2016-12-16] MEDS: Enoxaparin 40 mg Syringe SC SCH (09:02)
[2016-12-16] MEDS: cefTRIAXone 1 gm 100 ML IVPB SCH (09:02)
--- NOTE | 2016-12-16 10:40 | CP.PCM.PN ---
Subjective - Date & Time of Evaluation Date of Evaluation: 12/16/16 Time of Evaluation: 08:00 - Subjective Subjective: Stable on 2R. No CP, SOB. He feels better. No dizziness or syncope. V/S noted. RSR PE: Lungs: clear Cor.: S1S2 Abd.: soft Ext.: no edema Neuro.: alert Labs noted. Trops neg x 3 BC neg x2 at 24 hrs. Objective - Vital Signs/Intake and Output Vital Signs (last 24 hours): Temp Pulse Resp BP Pulse Ox 98.6 F 65 19 122/62 16 L 12/16/16 06:00 12/16/16 09:01 12/16/16 06:00 12/16/16 09:01 12/14/16 21:18 Intake and Output: 12/16/16 12/16/16 06:59 18:59 Intake Total 120 Output Total 0 Balance 120 - Medications Medications: Current Medications Albuterol/Ipratropium (Duoneb 3 Mg/0.5 Mg (3 Ml) Ud) 3 ml IH Q2H PRN PRN Reason: Shortness of Breath Arformoterol Tartrate (Brovana) 15 mcg IH [id number] [facility] Last Admin: 12/16/16 07:29 Dose: 15 mcg Aspirin (Ecotrin) 81 mg PO DAILY [facility] Last Admin: 12/16/16 09:01 Dose: 81 mg Atorvastatin Calcium (Lipitor) 20 mg PO DIN [facility] Last Admin: 12/15/16 18:49 Dose: 20 mg Budesonide (Pulmicort Respules) 0.5 mg IH [id number] [facility] Last Admin: 12/16/16 07:29 Dose: 0.5 mg Calcium Carbonate (Oscal) 500 mg PO DAILY [facility] Last Admin: 12/16/16 09:01 Dose: 500 mg Cholecalciferol (Vitamin D) 2,000 iu PO DAILY [facility] Last Admin: 12/16/16 09:01 Dose: 2,000 iu Clopidogrel Bisulfate (Plavix) 75 mg PO DAILY [facility] Last Admin: 12/16/16 09:01 Dose: 75 mg Enoxaparin Sodium (Lovenox) 40 mg SC DAILY [facility] PRN Reason: Protocol Last Admin: 12/16/16 09:02 Dose: 40 mg Ceftriaxone Sodium (Rocephin 1 Gram Ivpb) 100 mls @ 100 mls/hr IVPB DAILY [facility] PRN Reason: Protocol Last Admin: 12/16/16 09:02 Dose: 100 mls/hr Clindamycin Phosphate 600 mg/ (Sodium Chloride) 54 mls @ 102 mls/hr IVPB Q8 [facility] PRN Reason: Protocol Last Admin: 12/16/16 06:51 Dose: 102 mls/hr Lisinopril (Zestril) 10 mg PO DAILY [facility] Last Admin: 12/16/16 09:00 Dose: 10 mg Metoprolol Tartrate (Lopressor) 25 mg PO BID [facility] Last Admin: 12/16/16 09:01 Dose: 25 mg Pantoprazole Sodium (Protonix Ec Tab) 20 mg PO 0730 [facility] Last Admin: 12/16/16 08:49 Dose: 20 mg Tiotropium [place] (Spiriva) 18 mcg IH QPM [facility] - Labs Labs: 12/16/16 06:20 12/16/16 06:20 PT 12.1 Seconds (9.9-11.8) H 12/14/16 15:30 INR 1.12 (0.93-1.08) H 12/14/16 15:30 APTT 31.7 Seconds (23.7-30.8) H 12/14/16 15:30 Assessment and Plan - Assessment and Plan (Free Text) Plan: Assessment: Nausea and vomiting for 1 week Orthostatic hypotension CAD/remote MS and PCI Diffuse 3 vessel disease on cath 2014 COPD/Former Smoker HBP ILD OA Anemia Diverticulitis Plan: Check postural V/S OOB per Pulm., Neuro., GI, Medical Team Check Echo. Check Stool for OB
--- NOTE | 2016-12-16 10:46 | MRI ---
PROCEDURE: MRI BRAIN WITHOUT CONTRAST HISTORY: r/o CVA COMPARISON: None. TECHNIQUE: Multiplanar, multisequence MR images of the brain were obtained without intravenous contrast enhancement. FINDINGS: HEMORRHAGE: None DWI: No evidence of an acute or early subacute infarction. BRAIN PARENCHYMA: There is a 6 mm focal area of increased magnetic susceptibility in the right anterior parietal lobe also identified on T2 weighted images. There are mild chronic microangiopathic changes. There is no mass, mass effect or abnormal extra-axial fluid collection. VENTRICLES: There is mild age-related global parenchymal volume loss and proportionate enlargement of the ventricles and cortical sulci. CRANIUM: There is normal bone marrow signal pattern. ORBITS: Grossly unremarkable. PARANASAL SINUSES/MASTOIDS: There is moderate mucosal thickening in the sphenoid chamber with fluid levels and moderate mucoperiosteal thickening in the ethmoid air cells, worse on the right. There are bilateral mastoid effusions. VASCULAR SYSTEM: Skull base flow voids intact. OTHER FINDINGS: None. IMPRESSION: No evidence of acute infarction. 6 mm focal area of increased magnetic susceptibility in the right anterior parietal lobe could represent old hemorrhage or calcification. Correlation with CT scan would be helpful. Mild chronic microangiopathic changes and mild age-related global parenchymal volume loss.
--- NOTE | 2016-12-16 10:56 | CP.PCM.CON ---
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 Patient describes sick contact being his after eating lasagna and her developing nausea, vomiting, and diarrhea. He denies diarrhea and vomiting but did not dry heaves last week nonday, tuesday , and tuesday. Associated symptoms of chills and productive cough leading to PCP evaluation with noted orthostatic hypotension and ER presentation. At present, he feels much improved with resolution of dry heaves since tuesday and decreasing cough. He denies dizziness, chills, sweats, dysphagia, odynophagia, unintentional weight loss, heartburn, bloating, indigestion, melena, hematochezia, hematemesis, diarrhea, or constipation. tolerating diet and formed bowel movement this morning. No prior EGD. Last colonoscopy 03/2016 for ischemic colitis surveillance with improved ulcerated sigmoid colon mucosa, diverticulosis, and 5mm tubular adenoma. Family-denies colon cancer, parents were healthy Social-previous [id number] years and 6 pack of beer daily x 30 years, quit both over 10 years, denies illicit drug use Surgery- cardiac stents Review of Systems - Review of Systems Review of Systems: A 12-point review of systems negative except for as above Past Patient History - Infectious Disease Hx of Infectious Diseases: None - Past Social History Smoking Status: Former Smoker - CARDIAC Hx Cardia Arrhythmia: Yes Hx Pacemaker: No - PULMONARY Hx Respiratory Disorders: Yes Hx Chronic Obstructive Pulmonary Disease (COPD): Yes - NEUROLOGICAL Hx Neurological Disorder: No Hx Alzheimer's Disease: No HX Cerebrovascular Accident: No Hx Dementia: No Hx Dizziness: No Hx Meningitis: No Hx Migraine: No Hx Parkinson's Disease: No Hx Seizures: No Hx Transient Ischemic Attacks (TIA): No - HEENT Hx Cataracts: Yes (surgery) - RENAL Hx Chronic Kidney Disease: Yes Hx Dialysis: Yes - ENDOCRINE/METABOLIC Hx Endocrine Disorders: No - HEMATOLOGICAL/ONCOLOGICAL Hx Blood Disorders: No - INTEGUMENTARY Hx Dermatological Problems: No Hx Basil Cell: No Hx Eczema: No Hx Melanoma: No Hx Psoriasis: No Hx Squamous Cell: No - MUSCULOSKELETAL/RHEUMATOLOGICAL Hx Musculoskeletal Disorders: Yes Hx Falls: No - PSYCHIATRIC Hx Emotional Abuse: No Hx Physical Abuse: No Hx Substance Use: No - SURGICAL HISTORY Hx Surgeries: Yes Hx Cardiac Catheterization: Yes Hx Coronary Stent: Yes - ANESTHESIA Hx Anesthesia Reactions: Yes (HYPOTENSIVE AT END OF PROCEDURE IN THE PAST) Hx Malignant Hyperthermia: No Meds Allergies/Adverse Reactions: Allergies Allergy/AdvReac Type Severity Reaction Status Date / Time No Known Allergies Allergy Verified 12/14/16 15:00 - Medications Medications: Current Medications Albuterol/Ipratropium (Duoneb 3 Mg/0.5 Mg (3 Ml) Ud) 3 ml IH Q2H PRN PRN Reason: Shortness of Breath Arformoterol Tartrate (Brovana) 15 mcg IH [id number] [facility] Last Admin: 12/16/16 07:29 Dose: 15 mcg Aspirin (Ecotrin) 81 mg PO DAILY [facility] [place] Last Admin: 12/16/16 09:01 Dose: 81 mg Atorvastatin Calcium (Lipitor) 20 mg PO DIN [facility] [place] Last Admin: 12/15/16 18:49 Dose: 20 mg Budesonide (Pulmicort Respules) 0.5 mg IH [id number] [facility] [place] Last Admin: 12/16/16 07:29 Dose: 0.5 mg Calcium Carbonate (Oscal) 500 mg PO DAILY [facility] [place] Last Admin: 12/16/16 09:01 Dose: 500 mg Cholecalciferol (Vitamin D) 2,000 iu PO DAILY [facility] [place] Last Admin: 12/16/16 09:01 Dose: 2,000 iu Clopidogrel Bisulfate (Plavix) 75 mg PO DAILY [facility] [place] Last Admin: 12/16/16 09:01 Dose: 75 mg Enoxaparin Sodium (Lovenox) 40 mg SC DAILY [facility] [place] PRN Reason: Protocol Last Admin: 12/16/16 09:02 Dose: 40 mg Ceftriaxone Sodium (Rocephin 1 Gram Ivpb) 100 mls @ 100 mls/hr IVPB DAILY [facility] [place] PRN Reason: Protocol Last Admin: 12/16/16 09:02 Dose: 100 mls/hr Clindamycin Phosphate 600 mg/ (Sodium Chloride) 54 mls @ 102 mls/hr IVPB Q8 [facility] [place] PRN Reason: Protocol Last Admin: 12/16/16 06:51 Dose: 102 mls/hr Lisinopril (Zestril) 10 mg PO DAILY [facility] [place] Last Admin: 12/16/16 09:00 Dose: 10 mg Metoprolol Tartrate (Lopressor) 25 mg PO BID [facility] [place] Last Admin: 12/16/16 09:01 Dose: 25 mg Pantoprazole Sodium (Protonix Ec Tab) 20 mg PO 0730 [facility] [place] Last Admin: 12/16/16 08:49 Dose: 20 mg Tiotropium [place] (Spiriva) 18 mcg IH QPM [facility] [place] Physical Exam - Constitutional Appears: Non-toxic, No Acute Distress - Head Exam Head Exam: ATRAUMATIC, NORMOCEPHALIC - Eye Exam Eye Exam: EOMI, PERRL Pupil Exam: PERRL. absent: Miosis, Mydriatic - ENT Exam ENT Exam: Mucous Membranes Moist, Normal Oropharynx - Neck Exam Neck exam: Positive for: Full Rom, Normal Inspection - Respiratory Exam Respiratory Exam: Clear to Auscultation Bilateral, Wheezes. absent: Rales, Rhonchi Additional comments: scattered wheezes - Cardiovascular Exam Cardiovascular Exam: RRR, +S1, +S2. absent: Gallop, Rubs - GI/Abdominal Exam GI & Abdominal Exam: Normal Bowel Sounds, Soft. absent: Distended, Firm, Guarding, Organomegaly, Rebound, Rigid, Tenderness - Extremities Exam Extremities exam: Positive for: full ROM. Negative for: pedal edema - Neurological Exam Neurological exam: Alert - Psychiatric Exam Psychiatric exam: Normal Affect, Normal Mood - Skin Skin Exam: Dry, Intact, Normal Color, Warm Results - Vital Signs Recent Vital Signs: Last Vital Signs Temp 98.6 F 12/16/16 06:00 Pulse 65 12/16/16 09:01 Resp 19 12/16/16 06:00 BP 122/62 12/16/16 09:01 Pulse Ox 16 L 12/14/16 21:18 - Labs Result Diagrams: 12/16/16 06:20 12/16/16 06:20 Labs: Laboratory Results - last 24 hr 12/14/16 12/15/16 12/15/16 23:25 07:30 13:55 WBC RBC Hgb Hct MCV MCH MCHC RDW Plt Count MPV Gran % Lymph % (Auto) [place] % (Auto) Eos % (Auto) Baso % (Auto) Gran # Lymph # [place] # Eos # Baso # Retic Count 2.14 H Sodium Potassium Chloride Carbon Dioxide Anion Gap BUN Creatinine Est GFR ( Amer) Est GFR (Non-Af Amer) Random Glucose Hemoglobin A1c 6.0 Calcium Iron 56 TIBC 202 L % Saturation 28 Ferritin 462.0 Total Bilirubin AST ALT Alkaline Phosphatase Lactate Dehydrogenase 457 Total Protein Albumin Globulin Albumin/Globulin Ratio Vitamin B12 > 1000 H Folate > 20.0 Free T4 1.80 Thyroxine (T4) 8.3 TSH 3rd Generation 0.2 L Ur L.pneumophila Ag Negative 12/16/16 06:20 WBC 9.0 RBC 3.03 L Hgb 9.9 L Hct 29.2 L MCV 96.4 MCH 32.7 MCHC 33.9 RDW 13.4 Plt Count 364 MPV 8.7 Gran % 77.0 H Lymph % (Auto) 14.0 L [place] % (Auto) 7.6 H Eos % (Auto) 1.2 L Baso % (Auto) 0.2 Gran # 6.92 H Lymph # 1.3 [place] # 0.7 H Eos # 0.1 Baso # 0.02 Retic Count Sodium 132 Potassium 3.8 Chloride 94 L Carbon Dioxide 27 Anion Gap 15 BUN 11 Creatinine 1.1 Est GFR ( Amer) > 60 Est GFR (Non-Af Amer) > 60 Random Glucose 97 Hemoglobin A1c Calcium 9.0 Iron TIBC % Saturation Ferritin Total Bilirubin 0.9 AST 58 ALT 34 Alkaline Phosphatase 101 Lactate Dehydrogenase Total Protein 7.1 Albumin 3.5 Globulin 3.6 Albumin/Globulin Ratio 1.0 L Vitamin B12 Folate Free T4 Thyroxine (T4) TSH 3rd Generation Ur L.pneumophila Ag Assessment & Plan - Assessment and Plan (Free Text) Assessment: 71 year old male with history of Hypertension, Hyperlipidemia, Afib, COPD, CAD, HI s/p stents 2 years prior on Plavix, and ischemic colitis 10/2015 presenting with productive cough and nausea. Active treatment of orthostatic hypotension and interstitial lung disease. No prior EGD. Last colonoscopy 03/2016 for ischemic colitis surveillance with improved ulcerated sigmoid colon mucosa, diverticulosis, and 5mm tubular adenoma. Plan: >likely resolved gastroenteritis-sick contact being >tolerating regular diet >H2 murray as need for dyspepsia >if symptoms recur would consider elective endoscopic evaluation >keep established appointment with Dr. Wong for outpatient follow up <Heidy Roe - Last Filed: 12/16/16 14:10> Meds - Medications Medications: Current Medications Albuterol/Ipratropium (Duoneb 3 Mg/0.5 Mg (3 Ml) Ud) 3 ml IH Q2H PRN PRN Reason: Shortness of Breath Arformoterol Tartrate (Brovana) 15 mcg IH [id number] [facility] Last Admin: 12/16/16 07:29 Dose: 15 mcg Aspirin (Ecotrin) 81 mg PO DAILY [facility] [place] Last Admin: 12/16/16 09:01 Dose: 81 mg Atorvastatin Calcium (Lipitor) 20 mg PO DIN [facility] [place] Last Admin: 12/15/16 18:49 Dose: 20 mg Budesonide (Pulmicort Respules) 0.5 mg IH [id number] [facility] Last Admin: 12/16/16 07:29 Dose: 0.5 mg Calcium Carbonate (Oscal) 500 mg PO DAILY [facility] [place] Last Admin: 12/16/16 09:01 Dose: 500 mg Cholecalciferol (Vitamin D) 2,000 iu PO DAILY [facility] [place] Last Admin: 12/16/16 09:01 Dose: 2,000 iu Clopidogrel Bisulfate (Plavix) 75 mg PO DAILY [facility] [place] Last Admin: 12/16/16 09:01 Dose: 75 mg Enoxaparin Sodium (Lovenox) 40 mg SC DAILY [facility] [place] PRN Reason: Protocol Last Admin: 12/16/16 09:02 Dose: 40 mg Ceftriaxone Sodium (Rocephin 1 Gram Ivpb) 100 mls @ 100 mls/hr IVPB DAILY [facility] [place] PRN Reason: Protocol Last Admin: 12/16/16 09:02 Dose: 100 mls/hr Clindamycin Phosphate 600 mg/ (Sodium Chloride) 54 mls @ 102 mls/hr IVPB Q8 [facility] [place] PRN Reason: Protocol Last Admin: 12/16/16 06:51 Dose: 102 mls/hr Lisinopril (Zestril) 10 mg PO DAILY [facility] [place] Last Admin: 12/16/16 09:00 Dose: 10 mg Metoprolol Tartrate (Lopressor) 25 mg PO BID [facility] [place] Last Admin: 12/16/16 09:01 Dose: 25 mg Pantoprazole Sodium (Protonix Ec Tab) 20 mg PO 0730 [facility] [place] Last Admin: 12/16/16 08:49 Dose: 20 mg Tiotropium [place] (Spiriva) 18 mcg IH QPM [facility] Results - Vital Signs Recent Vital Signs: Last Vital Signs Temp 97.8 F 12/16/16 12:00 Pulse 70 12/16/16 12:00 Resp 15 12/16/16 12:00 BP 117/67 12/16/16 12:00 Pulse Ox 16 L 12/14/16 21:18 - Labs Result Diagrams: 12/16/16 06:20 12/16/16 06:20 Labs: Laboratory Results - last 24 hr 12/15/16 12/15/16 12/16/16 07:30 13:55 06:20 WBC 9.0 RBC 3.03 L Hgb 9.9 L Hct 29.2 L MCV 96.4 MCH 32.7 MCHC 33.9 RDW 13.4 Plt Count 364 MPV 8.7 Gran % 77.0 H Lymph % (Auto) 14.0 L [place] % (Auto) 7.6 H Eos % (Auto) 1.2 L Baso % (Auto) 0.2 Gran # 6.92 H Lymph # 1.3 [place] # 0.7 H Eos # 0.1 Baso # 0.02 Sodium 132 Potassium 3.8 Chloride 94 L Carbon Dioxide 27 Anion Gap 15 BUN 11 Creatinine 1.1 Est GFR ( Amer) > 60 Est GFR (Non-Af Amer) > 60 Random Glucose 97 Hemoglobin A1c 6.0 Calcium 9.0 Ferritin 462.0 Total Bilirubin 0.9 AST 58 ALT 34 Alkaline Phosphatase 101 Total Protein 7.1 Albumin 3.5 Globulin 3.6 Albumin/Globulin Ratio 1.0 L Vitamin B12 > 1000 H Folate > 20.0 Free T4 1.80 Thyroxine (T4) 8.3 Attending/Attestation - Attestation I have personally seen and examined this patient.: Yes I have fully participated in the care of the patient.: Yes I have reviewed all pertinent clinical information: Yes Notes (Text): Patient seen and examined with GI fellow. Agree with her note as documented above with the following additions/exceptions. This is a 71 year old male with history of atrial fibrillation, HTN, HL, COPD, CAD, HI s/p PCI, schemic colitis 10/2015 presenting with productive cough and nausea with associated orthostatic hypotension. The patient denies any antecendent vomiting/diarrhea to account for significant volume loss. He reports that his suffered from similar complaints. He currently denies any dizziness/nausea/vomiting. He is having regular BM. No current abdominal pain. He denies any change in bowel habits. He is tolerating diet without any difficulty. Cardiology/neurology following. No acute inpatient GI work up needed at this time. Would continue supportive care, antiemetic as needed, H2 murray therapy. He has follow up with Dr. Wong in 2 weeks. Can consider endoscopic evaluation if symptoms recur/persist. 12/16/16 14:05
--- NOTE | 2016-12-16 11:37 | CP.PCM.DIS ---
<Lopez [place]field - Last Filed: 12/17/16 11:29> Provider - Provider Date of Admission: 12/14/16 17:35 Attending physician: Steven Dixon MD Primary care physician: Steven Dixon MD Consults: GI - Dr. Wong Cardiology - Dr. Mcgarry Pulmonology - Dr. Valdivia Neurology - Dr. Bee Time Spent in preparation of Discharge (in minutes): 30 Hospital Course - Lab Results Lab Results: Micro Results 12/15/16 08:44 Urine,Clean Catch Urine Culture - Final No Growth (<1,000 CFU/ML) Most Recent Lab Values WBC 9.0 10^3/ul (4.5-11.0) 12/16/16 06:20 RBC 3.03 10^6/uL (3.5-6.1) L 12/16/16 06:20 Hgb 9.9 gm/dL (14.0-18.0) L 12/16/16 06:20 Hct 29.2 % (42.0-52.0) L 12/16/16 06:20 MCV 96.4 fL (80.0-105.0) 12/16/16 06:20 MCH 32.7 pg (25.0-35.0) 12/16/16 06:20 MCHC 33.9 g/dl (31.0-37.0) 12/16/16 06:20 RDW 13.4 % (11.5-14.5) 12/16/16 06:20 Plt Count 364 10^3/uL (120.0-450.0) 12/16/16 06:20 MPV 8.7 fl (7.0-11.0) 12/16/16 06:20 Gran % 77.0 % (50.0-68.0) H 12/16/16 06:20 Lymph % (Auto) 14.0 % (22.0-35.0) L 12/16/16 06:20 [place] % (Auto) 7.6 % (1.0-6.0) H 12/16/16 06:20 Eos % (Auto) 1.2 % (1.5-5.0) L 12/16/16 06:20 Baso % (Auto) 0.2 % (0.0-3.0) 12/16/16 06:20 Gran # 6.92 (1.4-6.5) H 12/16/16 06:20 Lymph # 1.3 (1.2-3.4) 12/16/16 06:20 [place] # 0.7 (0.1-0.6) H 12/16/16 06:20 Eos # 0.1 (0.0-0.7) 12/16/16 06:20 Baso # 0.02 K/mm3 (0.0-2.0) 12/16/16 06:20 Retic Count 2.14 % (0.5-1.5) H 12/15/16 07:30 PT 12.1 Seconds (9.9-11.8) H 12/14/16 15:30 INR 1.12 (0.93-1.08) H 12/14/16 15:30 APTT 31.7 Seconds (23.7-30.8) H 12/14/16 15:30 Sodium 132 mmol/L (132-148) 12/16/16 06:20 Potassium 3.8 mmol/L (3.6-5.0) 12/16/16 06:20 Chloride 94 mmol/L (98-107) L 12/16/16 06:20 Carbon Dioxide 27 mmol/L (21-33) 12/16/16 06:20 Anion Gap 15 (10-20) 12/16/16 06:20 BUN 11 mg/dL (7-21) 12/16/16 06:20 Creatinine 1.1 mg/dL (0.5-1.4) 12/16/16 06:20 Est GFR ( Amer) > 60 12/16/16 06:20 Est GFR (Non-Af Amer) > 60 12/16/16 06:20 Random Glucose 97 mg/dL (70-110) 12/16/16 06:20 Hemoglobin A1c 6.0 % (4.2-6.5) 12/15/16 07:30 Calcium 9.0 mg/dL (8.4-10.5) 12/16/16 06:20 Phosphorus 3.3 mg/dL (2.5-4.5) 12/15/16 06:30 Magnesium 1.9 mg/dL (1.7-2.2) 12/15/16 06:30 Iron 56 ug/dL (45-180) 12/15/16 07:30 TIBC 202 ug/dL (261-462) L 12/15/16 07:30 % Saturation 28 % (20-55) 12/15/16 07:30 Ferritin 462.0 ng/mL 12/15/16 07:30 Total Bilirubin 0.9 mg/dL (0.2-1.3) 12/16/16 06:20 Direct Bilirubin 0.5 mg/dL (0.0-0.4) H 12/14/16 15:30 AST 58 U/L (15-59) 12/16/16 06:20 ALT 34 U/L (7-56) 12/16/16 06:20 Alkaline Phosphatase 101 U/L (38-133) 12/16/16 06:20 Lactate Dehydrogenase 457 U/L (333-699) 12/15/16 07:30 Troponin I 0.02 ng/mL 12/15/16 06:30 NT-Pro-B Natriuret Pep 922 pg/mL (0-450) H 12/14/16 15:30 Total Protein 7.1 g/dL (5.8-8.3) 12/16/16 06:20 Albumin 3.5 g/dL (3.0-4.8) 12/16/16 06:20 Globulin 3.6 gm/dL 12/16/16 06:20 Albumin/Globulin Ratio 1.0 (1.1-1.8) L 12/16/16 06:20 Vitamin B12 > 1000 pg/mL (239-931) H 12/15/16 07:30 Folate > 20.0 ng/mL 12/15/16 07:30 Procalcitonin 1.06 NG/ML (0.19-0.49) H 12/14/16 15:30 Free T4 1.80 ng/dL (0.78-2.19) 12/15/16 13:55 Thyroxine (T4) 8.3 ug/dL (5.5-11.0) 12/15/16 13:55 TSH 3rd Generation 0.2 MIU/ml (0.46-4.68) L 12/15/16 07:30 Urine Color Yellow (YELLOW) 12/14/16 17:17 Urine Appearance Clear (CLEAR) 12/14/16 17:17 Urine pH 6.0 (4.7-8.0) 12/14/16 17:17 Ur Specific [place] 1.025 (1.005-1.035) 12/14/16 17:17 Urine Protein Negative mg/dL (<30 mg/dL) 12/14/16 17:17 Urine Glucose (UA) Negative mg/dL (NEGATIVE) 12/14/16 17:17 Urine Ketones Negative mg/dL (NEGATIVE) 12/14/16 17:17 Urine Blood Negative (NEGATIVE) 12/14/16 17:17 Urine Nitrate Negative (NEGATIVE) 12/14/16 17:17 Urine Bilirubin Negative (NEGATIVE) 12/14/16 17:17 Urine Urobilinogen 0.2 E.U./dL (<1 E.U./dL) 12/14/16 17:17 Ur Leukocyte Esterase Negative Todd/uL (NEGATIVE) 12/14/16 17:17 Ur L.pneumophila Ag Negative (NEGATIVE) 12/14/16 23:25 - Hospital Course Hospital Course: Patient is a 71yo male with past medical history of CAD s/p 2 stents placed, CHF (unknown EF), COPD, ILD, HTN, HLD and [place] that presented to [facility] c/o intermittent nausea and vomiting for 1 week prior to presentation. Patient stated that last Tuesday he began to feel nauseous and had an episode of nonbilious, nonbloody vomiting and that his was also feeling unwell and had multiple episodes of diarrhea. They reported that they originally attributed their illness to a viral gastroenteritis however the patient reports that after several days he continued to have sporadic bouts of nausea and vomiting. The patient also stated that his nausea/vomiting was associated with lack of appetite, shortness of breath, chills and a productive cough (green sputum). He followed up with his primary care doctor, Dr. Dixon and was found to be orthostatic in the office with a postural decrease in SBP of approximately 30mmHg and instructed to go to the emergency room for further evaluation. On arrival to the ED, the patient vitals were as follows: temperature 99.0F, heart rate 82bpm, blood pressure 143/89, RR 18, O2sat 99% on room air. His labs were notable for a NT-ProBNP of 922. CXR revealed chronic interstitial lung disease, however no evidence of pneumonia. An EKG revealed normal sinus rhythm with no acute ST-T wave changes. The following workup/labs were obtained during the patient's hospital course: 1. Nausea/vomiting/orthostatic -afebrile, no leukocytosis -Zofran and 1L fluid bolus given in the ED -Blood, urine, sputum cultures negative -Procalcitonin negative -MRI brain without contrast negative for any acute pathology -Patient was originally started on rocephin and clindamycin pending infectious workup -GI was consulted - Dr. Wong -Neurology was consulted - Dr. Bee 2. CHF, compensated -Echocardiogram reviewed -CXR and EKG reviewed -NT-proBNP 922 -Strict I's and O's; Daily weight; Heart healthy diet -Cardiology was consulted - Dr. Mcgarry 3. ILD/COPD -Duoneb q2h PRN -Continue home med spiriva -Pulmonology was consulted - Dr. Valdivia 4. CAD -Continue ASA and plavix -Continue metoprolol 5. Hyperlipidemia -Continue lipitor 6. Hypertension -Continue lisinopril 7. GI/DVT Prophylaxis -Protonix/lovenox During the patient's hospital course, he reported improvement of his symptoms and did not experience any nausea, vomiting or diarrhea. His orthostatic blood pressure was rechecked and was found to be within normal limits. GI service evaluated the patient and believed his symptoms to be likely secondary to gastroenteritis. The patient was subsequently discharged with instructions to follow up with his primary doctor within 1-2 weeks. He had all questions answered and was agreeable to discharge and follow up. Discharge Exam - Head Exam Head Exam: ATRAUMATIC, NORMOCEPHALIC - Eye Exam Eye Exam: EOMI, PERRL. absent: Conjunctival injection, Scleral icterus - ENT Exam ENT Exam: Mucous Membranes Moist - Respiratory Exam Respiratory Exam: Rales, NORMAL BREATHING PATTERN. absent: Rhonchi (bilateral rales; history of ILD), Wheezes - Cardiovascular Exam Cardiovascular Exam: RRR, +S1, +S2, Systolic Murmur. absent: Bradycardia, Tachycardia, JVD, Rubs - GI/Abdominal Exam GI & Abdominal Exam: Normal Bowel Sounds, Soft. absent: Distended, Firm, Guarding, Rebound, Rigid, Tenderness - Neurological Exam Neurological exam: Alert, CN II-XII Intact, Oriented x3 - Psychiatric Exam Psychiatric exam: Normal Affect, Normal Mood - Skin Skin Exam: Dry, Intact, Normal Color, Warm Discharge Plan - Follow Up Plan Condition: FAIR Disposition: HOME/ ROUTINE Instructions: Dehydration (DC), Dehydration (GEN) Additional Instructions: 1. Follow up with your primary doctor, Dr. Dixon in 1-2 weeks. 2. 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 3. Continue to take your home medications as prescribed to you. 4. Return to the emergency room should your condition worsen or change in severity/quality. 5. 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 Wong on your scheduled appointment in the next 2 weeks. Referrals: Steven Dixon MD [Primary Care Provider] - <Steven Dixon - Last Filed: 01/12/17 10:52> Provider - Provider Date of Admission: 12/14/16 17:35 Attending physician: Steven Dixon MD Primary care physician: Steven Dixon MD Hospital Course - Lab Results Lab Results: Micro Results 12/15/16 08:44 Urine,Clean Catch Urine Culture - Final No Growth (<1,000 CFU/ML) Most Recent Lab Values WBC 9.0 10^3/ul (4.5-11.0) 12/16/16 06:20 RBC 3.03 10^6/uL (3.5-6.1) L 12/16/16 06:20 Hgb 9.9 gm/dL (14.0-18.0) L 12/16/16 06:20 Hct 29.2 % (42.0-52.0) L 12/16/16 06:20 MCV 96.4 fL (80.0-105.0) 12/16/16 06:20 MCH 32.7 pg (25.0-35.0) 12/16/16 06:20 MCHC 33.9 g/dl (31.0-37.0) 12/16/16 06:20 RDW 13.4 % (11.5-14.5) 12/16/16 06:20 Plt Count 364 10^3/uL (120.0-450.0) 12/16/16 06:20 MPV 8.7 fl (7.0-11.0) 12/16/16 06:20 Gran % 77.0 % (50.0-68.0) H 12/16/16 06:20 Lymph % (Auto) 14.0 % (22.0-35.0) L 12/16/16 06:20 [place] % (Auto) 7.6 % (1.0-6.0) H 12/16/16 06:20 Eos % (Auto) 1.2 % (1.5-5.0) L 12/16/16 06:20 Baso % (Auto) 0.2 % (0.0-3.0) 12/16/16 06:20 Gran # 6.92 (1.4-6.5) H 12/16/16 06:20 Lymph # 1.3 (1.2-3.4) 12/16/16 06:20 [place] # 0.7 (0.1-0.6) H 12/16/16 06:20 Eos # 0.1 (0.0-0.7) 12/16/16 06:20 Baso # 0.02 K/mm3 (0.0-2.0) 12/16/16 06:20 Retic Count 2.14 % (0.5-1.5) H 12/15/16 07:30 PT 12.1 Seconds (9.9-11.8) H 12/14/16 15:30 INR 1.12 (0.93-1.08) H 12/14/16 15:30 APTT 31.7 Seconds (23.7-30.8) H 12/14/16 15:30 Sodium 132 mmol/L (132-148) 12/16/16 06:20 Potassium 3.8 mmol/L (3.6-5.0) 12/16/16 06:20 Chloride 94 mmol/L (98-107) L 12/16/16 06:20 Carbon Dioxide 27 mmol/L (21-33) 12/16/16 06:20 Anion Gap 15 (10-20) 12/16/16 06:20 BUN 11 mg/dL (7-21) 12/16/16 06:20 Creatinine 1.1 mg/dL (0.5-1.4) 12/16/16 06:20 Est GFR ( Amer) > 60 12/16/16 06:20 Est GFR (Non-Af Amer) > 60 12/16/16 06:20 Random Glucose 97 mg/dL (70-110) 12/16/16 06:20 Hemoglobin A1c 6.0 % (4.2-6.5) 12/15/16 07:30 Calcium 9.0 mg/dL (8.4-10.5) 12/16/16 06:20 Phosphorus 3.3 mg/dL (2.5-4.5) 12/15/16 06:30 Magnesium 1.9 mg/dL (1.7-2.2) 12/15/16 06:30 Iron 56 ug/dL (45-180) 12/15/16 07:30 TIBC 202 ug/dL (261-462) L 12/15/16 07:30 % Saturation 28 % (20-55) 12/15/16 07:30 Ferritin 462.0 ng/mL 12/15/16 07:30 Total Bilirubin 0.9 mg/dL (0.2-1.3) 12/16/16 06:20 Direct Bilirubin 0.5 mg/dL (0.0-0.4) H 12/14/16 15:30 AST 58 U/L (15-59) 12/16/16 06:20 ALT 34 U/L (7-56) 12/16/16 06:20 Alkaline Phosphatase 101 U/L (38-133) 12/16/16 06:20 Lactate Dehydrogenase 457 U/L (333-699) 12/15/16 07:30 Troponin I 0.02 ng/mL 12/15/16 06:30 NT-Pro-B Natriuret Pep 922 pg/mL (0-450) H 12/14/16 15:30 Total Protein 7.1 g/dL (5.8-8.3) 12/16/16 06:20 Albumin 3.5 g/dL (3.0-4.8) 12/16/16 06:20 Globulin 3.6 gm/dL 12/16/16 06:20 Albumin/Globulin Ratio 1.0 (1.1-1.8) L 12/16/16 06:20 Vitamin B12 > 1000 pg/mL (239-931) H 12/15/16 07:30 Folate > 20.0 ng/mL 12/15/16 07:30 Procalcitonin 1.06 NG/ML (0.19-0.49) H 12/14/16 15:30 Free T4 1.80 ng/dL (0.78-2.19) 12/15/16 13:55 Thyroxine (T4) 8.3 ug/dL (5.5-11.0) 12/15/16 13:55 TSH 3rd Generation 0.2 MIU/ml (0.46-4.68) L 12/15/16 07:30 Urine Color Yellow (YELLOW) 12/14/16 17:17 Urine Appearance Clear (CLEAR) 12/14/16 17:17 Urine pH 6.0 (4.7-8.0) 12/14/16 17:17 Ur Specific [place] 1.025 (1.005-1.035) 12/14/16 17:17 Urine Protein Negative mg/dL (<30 mg/dL) 12/14/16 17:17 Urine Glucose (UA) Negative mg/dL (NEGATIVE) 12/14/16 17:17 Urine Ketones Negative mg/dL (NEGATIVE) 12/14/16 17:17 Urine Blood Negative (NEGATIVE) 12/14/16 17:17 Urine Nitrate Negative (NEGATIVE) 12/14/16 17:17 Urine Bilirubin Negative (NEGATIVE) 12/14/16 17:17 Urine Urobilinogen 0.2 E.U./dL (<1 E.U./dL) 12/14/16 17:17 Ur Leukocyte Esterase Negative [place]/uL (NEGATIVE) 12/14/16 17:17 Serum Immunofixation See note (()) 12/15/16 07:30 Ur L.pneumophila Ag Negative (NEGATIVE) 12/14/16 23:25 Pneumocystis Source Serum (()) 12/15/16 06:30 S. pneumoniae Antigen Not detected (()) 12/15/16 06:30 Attending/Attestation - Attestation I have personally seen and examined this patient.: Yes I have fully participated in the care of the patient.: Yes I have reviewed all pertinent clinical information, including history, physical exam and plan: Yes Notes (Text): 01/12/17 10:52 Medial record note done by resident after patient personally seen and examined by me. I have reviewed the chart and agree that the record accurately reflects my personal evaluation, data review, and course for the patient.
--- NOTE | 2016-12-16 12:36 | CON ---
DATE: 12/16/2016 HISTORY OF PRESENT ILLNESS: This is a 71-year-old male with past medical history of coronary artery disease, [place], presented to the hospital with nausea, vomiting, overall weak. The patient was found to have orthostatic hypotension when in PMD's office and was brought to the hospital. MRA of the head was done, which was reported no acute stroke. MEDICATIONS: Aspirin, Plavix, metoprolol, simvastatin. ALLERGIES: No known drug allergies. SOCIAL HISTORY: Does not smoke, does not drink. REVIEW OF SYSTEMS: A 10-point review of systems was negative. The patient was sitting comfortably o n a chair. PHYSICAL EXAMINATION: VITAL SIGNS: Blood pressure of 158/86. HEENT: Normocephalic, atraumatic. NECK: Supple. NEUROLOGIC: Alert, awake, oriented x 3. No aphasia. Cranial nerves II through XII were tested. Pu pils reactive. EOM intact. Visual umaña full. No facial asymmetry. Tongue midline. Motor examin ation: Moves all the extremities equally. Tone normal. Deep tendon reflexes 1+. Both plantars are downgoing. Sensory appears intact. Cerebellar gait is normal. IMPRESSION: Orthostatic hypotension, syncope, possibly secondary to above, multiple medical problems , chronic obstructive pulmonary disease, coronary artery disease. PLAN: Continue present management. We will follow up. Tavo Bee MD cc: [id number] TT: 12/16/2016 12:36:10 Confirmation # [id number] Dictation # [id number] keeley
[2016-12-16 12:40] VITALS: BP 117/67; RESP 15; TEMP 97.8
--- NOTE | 2016-12-16 13:57 | CARD ---
APPROVED REPORT EXAM: Two-dimensional and M-mode echocardiogram with Doppler and color Doppler. Other Information Quality : AverageRhythm : INDICATION Nausea, vomting, hypotension, LVFX 2D DIMENSIONS Left Atrium (2D)4.9 (1.6-4.0cm)IVSd1.1 (0.7-1.1cm) LVDd5.4 (3.9-5.9cm)PWd1.3 (0.7-1.1cm) LVDs4.0 (2.5-4.0cm)FS (%) 16.9 % M-Mode DIMENSIONS Aortic Root3.40 (2.2-3.7cm)Aortic Cusp Exc.2.00 (1.5-2.0cm) Aortic Valve AoV Peak Ikgjhkae272.0cm/s Mitral Valve MV E Upclvpkj45.9cm/sMV A Kbampstb044.0cm/sE/A ratio0.5 TDI Lateral E' Peak V10.10cm/sMedial E' Peak V5.46cm/sE/Lateral E'6.2 E/Medial E'11.5 Pulmonary Valve PV Peak Etemlbqb806.0cm/sPV Peak Grad.5mmHg Tricuspid Valve TR Peak Stcbgnfq802et/sRAP [id number] Peak Gr.39mmHg [id number] LEFT VENTRICLE The left ventricle is normal size. There is normal left ventricular wall thickness. The estimated left ventricular ejection fraction is - 40%. There is inferobasalar dyskinesis c/w an ID. RIGHT VENTRICLE The right ventricle is normal size. ATRIA The left atrium is moderately dilated. The right atrium size is normal. The interatrial septum is intact with no evidence for an atrial septal defect. AORTIC VALVE The aortic valve is normal in structure. MITRAL VALVE The mitral valve is normal in structure. Mitral regurgitation is trace to mild. TRICUSPID VALVE The tricuspid valve is normal in structure. There is mild tricuspid regurgitation. PULMONIC VALVE The pulmonic valve is not well visualized. GREAT VESSELS The aortic root is normal in size. PERICARDIAL EFFUSION There is no pericardial effusion. <Conclusion> The left ventricle is normal size. There is normal left ventricular wall thickness. The estimated left ventricular ejection fraction is - 40%. There is inferobasalar dyskinesis c/w an ID. Mitral regurgitation is trace to mild. There is mild tricuspid regurgitation.
[2016-12-16 14:47] VITALS: PULSE 78
== END 2016-12-16 16:02 | disposition home or self-care (01) ==
LOC: ED 14:15 → ERH 17:35 → 2RNO 21:31
PROVIDERS: ADMIT Internal Medicine; ATTEND Internal Medicine
DX: A08.4 Viral intestinal infection, unspecified (principal); D64.9 Anemia, unspecified; E78.5 Hyperlipidemia, unspecified; E86.0 Dehydration; I13.0 Hypertensive heart and chronic kidney disease with heart failure and stage 1 through stage 4 chronic kidney disease, or unspecified chronic kidney disease; N18.9 Chronic kidney disease, unspecified; I25.10 Atherosclerotic heart disease of native coronary artery without angina pectoris; Z95.5 Presence of coronary angioplasty implant and graft; Z87.891 Personal history of nicotine dependence; Z82.49 Family history of ischemic heart disease and other diseases of the circulatory system; Z82.3 Family history of stroke; Z79.899 Other long term (current) drug therapy; Z79.82 Long term (current) use of aspirin; Z79.02 Long term (current) use of antithrombotics/antiplatelets; M81.0 Age-related osteoporosis without current pathological fracture; K63.5 Polyp of colon; K57.92 Diverticulitis of intestine, part unspecified, without perforation or abscess without bleeding; J84.9 Interstitial pulmonary disease, unspecified; J44.0 Chronic obstructive pulmonary disease with (acute) lower respiratory infection; J20.9 Acute bronchitis, unspecified; I95.1 Orthostatic hypotension; I50.9 Heart failure, unspecified; I48.91 Unspecified atrial fibrillation; I25.2 Old myocardial infarction; K59.00 Constipation, unspecified; Z98.49 Cataract extraction status, unspecified eye; R40.2412 Glasgow coma scale score 13-15, at arrival to emergency department; M19.90 Unspecified osteoarthritis, unspecified site

== ENCOUNTER 2017-05-02 09:56 | Inpatient (IN) | payer MEDICARE, OTHER ==
[2017-05-02 10:12] VITALS: BMI 25.1
[2017-05-02] MEDS ORDERED: Famotidine 20mg/50ml 20 MG/50 ML BAG IVPB STA (10:20)
--- NOTE | 2017-05-02 10:27 | ED PDOC ---
Arrival/HPI - General Chief Complaint: Abdominal Pain Time Seen by Provider: 05/02/17 10:12 Historian: Patient - History of Present Illness Narrative History of Present Illness (Text): 05/02/17 10:12 Kit Dean Sr is a 71 year old, whose past medical history includes CHF, COPD, hypertension, hiatal hernia, chronic coughs,and high cholesterol, who presents to the emergency department complaining of difficulty breathing since this morning. Patient's states that patient has had an upset stomach for the last three days and vomited once. Patient denies any leg swelling (on Lasix) , fever, chills, or any other complaints at this time. PMD: Dr. Dixon Time/Duration: 4-6 hours Symptom Onset: Gradual Symptom Course: Unchanged Severity Level: Mild Context: Home Past Medical History - Provider Review Nursing Documentation Reviewed: Yes - Infectious Disease Hx of Infectious Diseases: None - Cardiac Hx Cardiac Arrhythmia: Yes Hx Pacemaker: No - Pulmonary Hx Respiratory Disorders: Yes Hx Chronic Obstructive Pulmonary Disease (COPD): Yes - Neurological Hx Neurological Disorder: No Hx Alzheimer's Disease: No HX Cerebrovascular Accident: No Hx Dementia: No Hx Dizziness: No Hx Meningitis: No Hx Migraine: No Hx Parkinson's Disease: No Hx Seizures: No Hx Transient Ischemic Attacks (TIA): No - HEENT Hx Cataracts: Yes (surgery) - Renal Hx Renal Disorder: Yes Hx Dialysis: Yes - Endocrine/Metabolic Hx Endocrine Disorders: No - Hematological/Oncological Hx Blood Disorders: No - Integumentary Hx Dermatological Disorder: No Hx Basal Cell Carcinoma: No Hx Eczema: No Hx Melanoma: No Hx Psoriasis: No Hx Squamous Cell Carcinoma: No - Musculoskeletal/Rheumatological Hx Musculoskeletal Disorders: Yes Hx Falls: No - Psychiatric Hx Emotional Abuse: No Hx Physical Abuse: No Hx Substance Use: No - Surgical History Hx Cardiac Catheterization: Yes Hx Coronary Stent: Yes - Anesthesia Hx Anesthesia Reactions: Yes (HYPOTENSIVE AT END OF PROCEDURE IN THE PAST) Hx Malignant Hyperthermia: No - Suicidal Assessment Feels Threatened In Home Enviroment: No Family/Social History - Physician Review Nursing Documentation Reviewed: Yes Family/Social History: No Known Family HX Smoking Status: Former Smoker Hx Alcohol Use: No Hx Substance Use: No Allergies/Home Meds Allergies/Adverse Reactions: Allergies No Known Allergies Allergy (Verified 05/02/17 10:10) Home Medications: Home Meds Medication Instructions Recorded Confirmed Aspirin [Aspir 81] 81 mg PO DAILY 06/28/13 05/02/17 Simvastatin 40 mg PO QPM 06/28/13 05/02/17 Tiotropium [place] Inhaler 1 puff IH QPM 06/28/13 05/02/17 [Spiriva Inhalation Handihaler Device] Cholecalciferol (Vitamin D3) 2,000 unit PO DAILY 10/31/15 05/02/17 [Vitamin D3] Clopidogrel [Plavix] 75 mg PO DAILY 10/31/15 05/02/17 Lisinopril [Zestril] 10 mg PO QAM 10/31/15 05/02/17 Metoprolol Tartrate [Lopressor] 25 mg PO BID 10/31/15 05/02/17 Ranitidine HCl [Zantac] 300 mg PO DAILY 10/31/15 05/02/17 Tramadol HCl [Ultram] 50 mg PO Q4H PRN 10/31/15 05/02/17 Fluticasone/Salmeterol [Advair 250 mg DAILY 05/02/17 05/02/17 250-50 Diskus] Furosemide [Lasix] 20 mg PO DAILY 05/02/17 05/02/17 Review of Systems - Physician Review All systems were reviewed & negative as marked: Yes - Review of Systems Constitutional: absent: Fevers, Night Sweats Eyes: absent: Vision Changes ENT: absent: Hearing Changes Respiratory: Other (Difficulty breathing). absent: SOB Cardiovascular: absent: Chest Pain Gastrointestinal: Vomiting Genitourinary Male: absent: Dysuria Musculoskeletal: absent: Arthralgias Skin: absent: Rash Neurological: absent: Headache, Dizziness Endocrine: absent: Diaphoresis Hemo/Lymphatic: absent: Adenopathy Physical Exam Vital Signs Reviewed: Yes Vital Signs Temp Pulse Resp BP Pulse Ox 05/02/17 14:05 104 H 19 114/67 95 05/02/17 12:44 98.0 F 98 H 20 130/72 96 05/02/17 11:40 100 H 138/73 96 05/02/17 11:15 138/73 05/02/17 10:05 97.5 F L 98 H 20 146/83 100 05/02/17 10:02 102 H Pulse: Tachycardic Mental Status: Positive for: Alert and Oriented X 3 - Systems Exam Head: Present: Atraumatic, Normocephalic Pupils: Present: PERRL Extroacular Muscles: Present: EOMI Conjunctiva: Present: Normal Mouth: Present: Moist Mucous Membranes Neck: Present: Normal Range of Motion Respiratory/Chest: Present: Rales (?left side rales vs rhonchi). No: Wheezes, Rhonchi Cardiovascular: Present: Regular Rate and Rhythm, Normal S1, S2. No: Murmurs Abdomen: Present: Normal Bowel Sounds. No: Tenderness, Distention, Peritoneal Signs Back: Present: Normal Inspection Upper Extremity: Present: Normal Inspection. No: Cyanosis, Edema Lower Extremity: Present: Edema (trace LE edema) Neurological: Present: GCS=15, CN II-XII Intact, Speech Normal Skin: Present: Warm, Dry, Normal Color. No: Rashes Psychiatric: Present: Alert, Oriented x 3, Normal Insight, Normal Concentration Medical Decision Making ED Course and Treatment: 05/02/17 10:12 Impression: 71 year old male complaining of difficulty breathing since this morning. Differential Diagnosis included but are not limited to: CHF exacerbation vs. Gastritis vs. ACS vs PNA Plan: -- EKG -- Chest X-ray -- VBG and Blood Culture -- Urinalysis -- Labs -- Lasix and Pepcid -- Reassess and disposition Prior Visits: Notes and results from previous visits were reviewed. Patient last seen in the ED on 12/14/16 for on-bloody, intermittently bilious emesis, intermittent x 7 days. Patient was admitted to hospitalist care for further evaluation. Progress Notes: EKG: Ordered, reviewed, and independently interpreted the EKG. Rate : 99 BPM Rhythm : NSR Interpretation : Changes in inferior leads. 05/02/17 11:10 Code Sepsis called on patient. Treated with Cefepime and Levaquin. Hydrated at 30ml/kg. No recent hospitilizations as per patient and . 05/02/17 12:19 Chest X-ray: Dictator : Evan Mann MD FINDINGS: LUNGS: There is focal consolidation in the region of the left hilum suspicious for pneumonia. It is less likely that this represents asymmetric pulmonary congestion. Chronic interstitial changes are seen on the right PLEURA:No significant pleural effusion identified, no pneumothorax apparent. CARDIOVASCULAR:Normal. OSSEOUS STRUCTURES:No significant abnormalities. VISUALIZED UPPER ABDOMEN:Normal. OTHER FINDINGS:The findings were discussed with Dr. Lucio. IMPRESSION: There is focal consolidation in the region of the left hilum suspicious for pneumonia. It is less likely that this represents asymmetric pulmonary congestion. Chronic interstitial changes are seen on the right Case discussed with Dr. Dixon who agrees to place patient in Telemetry for Pneumonia r/o Sepsis; CHF. Patient was reevaluated after IVF and lung exam unchanged. He states he feels better with this symptoms. - Critical Care Critical Care Minutes: 30 minutes - Lab Interpretations Lab Results: 05/02/17 10:41 05/02/17 10:41 Lab Results 05/02/17 12:00: Urine Color Yellow, Urine Appearance Clear, Urine pH 5.5, Ur Specific [place] 1.025, Urine Protein Trace H, Urine Glucose (UA) Negative, Urine Ketones Negative, Urine Blood Negative, Urine Nitrate Negative, Urine Bilirubin Negative, Urine Urobilinogen 0.2, Ur Leukocyte Esterase Negative, Urine RBC 0 - 2, Urine WBC 0 - 2, Ur Epithelial Cells None, Amorphous Sediment Small, Urine Bacteria Few, Hyaline Casts 0 - 2, Fine Granular Casts 0 - 2 05/02/17 10:41: Sodium 134, Chloride 94 L, Potassium 4.3, Carbon Dioxide 24, Anion Gap 20, BUN 20, Creatinine 1.3, Est GFR ( Amer) > 60, Est GFR (Non- Af Amer) 54, Random Glucose 138 H, Calcium 10.5, Total Bilirubin 1.5 H, AST 284 H, ALT 78 H, Alkaline Phosphatase 163 H, Lactate Dehydrogenase 5906 H, Total Creatine Kinase 149, Troponin I 0.01 D, NT-Pro-B Natriuret Pep 970 H, Total Protein 7.5, Albumin 4.3, Globulin 3.2, Albumin/Globulin Ratio 1.3, Lipase 97 05/02/17 10:41: pO2 42, VBG pH 7.39, VBG pCO2 39.0 L, VBG HCO3 23.6, VBG Total CO2 24.8, VBG O2 Sat (Calc) 79.2 H, VBG Base Excess -1.2 L, VBG Potassium 4.3, Sodium 133.0, Chloride 94.0 L, Glucose 141 H, Lactate 5.6 H*, FiO2 21.0, Venous Blood Potassium 4.3 05/02/17 10:41: PT 12.0 H, INR 1.11 H, APTT 25.4 05/02/17 10:41: WBC 12.0 H D, RBC 3.68, Hgb 11.8 L, Hct 33.8 L, MCV 91.8, MCH 32.1, MCHC 34.9, RDW 13.2, Plt Count 50 L, MPV 10.4, Gran % 81.9 H, Lymph % ( Auto) 10.1 L, [place] % (Auto) 6.9 H, Eos % (Auto) 0.7 L, Baso % (Auto) 0.4, Gran # 9.79 H, Lymph # 1.2, [place] # 0.8 H, Eos # 0.1, Baso # 0.05 I have reviewed the lab results: Yes Interpretation: Abnormal lab values - RAD Interpretation Radiology Orders: 05/02/17 10:19 CHEST PORTABLE [RAD] [place] Supervisor: Radiologist - Medication Orders Current Medication Orders: Arformoterol Tartrate (Brovana) 15 mcg IH [id number] AAYUSH Budesonide (Pulmicort Respules) 0.5 mg IH [id number] AAYUSH Cholecalciferol (Vitamin D) 2,000 iu PO DAILY AAYUSH Famotidine (Pepcid) 40 mg PO HS AAYUSH Furosemide (Lasix) 20 mg PO DAILY AAYUSH Levofloxacin/Dextrose (Levaquin 750mg) 750 mg in 150 mls @ 100 mls/hr IVPB DAILY AAYUSH Vancomycin HCl (Vancomycin 1gm) 1 gm in 250 mls @ 167 mls/hr IVPB STAT STA PRN Reason: Protocol Stop: 05/02/17 17:42 Methylprednisolone 40 gm/ (Sodium Chloride) 250 mls @ 500 mls/hr IV DAILY AAYUSH Cefepime HCl (Maxipime 2gm) 2 gm in 100 mls @ 100 mls/hr IVPB Q8 AAYUSH Cefepime HCl (Maxipime 2gm) 2 gm in 100 mls @ 100 mls/hr IVPB .EXTRA DOSE ONE Stop: 05/02/17 17:59 Levalbuterol HCl (Xopenex) 1.25 mg IH [id number] PRN PRN Reason: Shortness of Breath Lisinopril (Zestril) 10 mg PO QAM AAYUSH Metoprolol Tartrate (Lopressor) 25 mg PO BID AAYUSH Tramadol HCl (Ultram) 50 mg PO Q4H PRN PRN Reason: Pain, moderate (4-7) Discontinued Medications Furosemide (Lasix) 40 mg IVP STAT STA Stop: 05/02/17 10:20 Last Admin: 05/02/17 11:15 Dose: 40 mg Famotidine (Pepcid 20mg/50ml Premix) 20 mg in 50 mls @ 100 mls/hr IVPB STAT STA Stop: 05/02/17 10:49 Last Admin: 05/02/17 11:39 Dose: 100 mls/hr Levofloxacin/Dextrose (Levaquin 750mg) 750 mg in 150 mls @ 100 mls/hr IVPB STAT STA Stop: 05/02/17 12:39 Last Admin: 05/02/17 13:30 Dose: 100 mls/hr Cefepime HCl (Maxipime 2gm) 2 gm in 100 mls @ 100 mls/hr IVPB STAT STA PRN Reason: Protocol Stop: 05/02/17 12:09 Last Admin: 05/02/17 11:55 Dose: 100 mls/hr Sodium Chloride 2,380 ml/ IV (SUPPLIES) 2,380 mls @ 4,762.74 mls/hr IV ONCE ONE PRN Reason: 60 ML/KG/HR Stop: 05/02/17 11:11 Last Admin: 05/02/17 11:33 Dose: 4,762.74 mls/hr - Scribe Statement The provider has reviewed the documentation as recorded by the Xavier Moscoso Provider Scribe Attestation: All medical record entries made by the Adarshibbernarda were at my direction and personally dictated by me. I have reviewed the chart and agree that the record accurately reflects my personal performance of the history, physical exam, medical decision making, and the department course for this patient. I have also personally directed, reviewed, and agree with the discharge instructions and disposition. Disposition/Present on Arrival - Present on Arrival Any Indicators Present on Arrival: Yes History of DVT/PE: Yes History of Uncontrolled Diabetes: No Urinary Catheter: No History of Decub. Ulcer: No History Surgical Site Infection Following: None - Disposition Have Diagnosis and Disposition been Completed?: Yes Diagnosis: Pneumonia, Sepsis, CHF (congestive heart failure) Disposition: HOSPITALIZED Disposition Time: 12:36 Patient Plan: Admission Patient Problems: Current Active Problems Problem Status Onset CHF (congestive heart failure) Acute Pneumonia Acute Sepsis Acute Condition: GUARDED
[2017-05-02 10:54] LABS: VENOUS BLOOD GAS BASE EXCESS -1.2 mmol/L (0.0-2.0); VENOUS BLOOD PH 7.39 (7.32-7.43)
[2017-05-02 10:55] LABS: BASO # 0.05 K/mm3 (0.0-2.0); BASO % 0.4 % (0.0-3.0); EOS # 0.1 (0.0-0.7); EOS % 0.7 % (1.5-5.0); GRAN # 9.79 (1.4-6.5); GRAN % 81.9 % (50.0-68.0); HEMATOCRIT 33.8 % (42.0-52.0); LYMPH # 1.2 (1.2-3.4); LYMPH % 10.1 % (22.0-35.0); MEAN CELL VOLUME 91.8 fl (80.0-105.0); MEAN CORPUSCULAR HEMOGLOBIN 32.1 pg (25.0-35.0); MEAN CORPUSCULAR HGB CONC 34.9 g/dl (31.0-37.0); MEAN PLATELET VOLUME 10.4 fl (7.0-11.0); MONO # 0.8 (0.1-0.6); MONO % 6.9 % (1.0-6.0); RED CELL DISTRIBUTION WIDTH 13.2 % (11.5-14.5)
[2017-05-02 11:04] LABS: ALB/GLOB RATIO 1.3 (1.1-1.8); ALKALINE PHOSPHATASE 163 U/L (38-133); ALT/SGPT 78 U/L (7-56); AST/SGOT 284 U/L (15-59); BILIRUBIN,TOTAL 1.5 mg/dL (0.2-1.3); BLOOD UREA NITROGEN 20 mg/dL (7-21); CALCIUM 10.5 mg/dL (8.4-10.5); CARBON DIOXIDE 24 mmol/L (21-33); CHLORIDE 94 mmol/L (98-107); GFR AFRICAN-AMERICAN > 60; GLUCOSE,RANDOM 138 mg/dL (70-110); LIPASE 97 U/L (23-300); POTASSIUM 4.3 mmol/L (3.6-5.0); SODIUM 134 mmol/L (132-148); TOTAL PROTEIN 7.5 g/dL (5.8-8.3)
[2017-05-02 11:05] LABS: INR 1.11 (0.93-1.08); PARTIAL THROMBOPLASTIN TIME 25.4 Seconds (23.7-30.8)
[2017-05-02] MEDS ORDERED: levoFLOXacin 750 mg in D5W 750 MG/150 ML BAG IVPB STA (11:10)
[2017-05-02] MEDS ORDERED: Cefepime IV 2 gm in NS 2 GM/100 ML BAG IVPB STA (11:10)
--- NOTE | 2017-05-02 11:13 | RAD ---
HISTORY: sob COMPARISON: 12/14/2016 FINDINGS: LUNGS: There is focal consolidation in the region of the left hilum suspicious for pneumonia. It is less likely that this represents asymmetric pulmonary congestion. Chronic interstitial changes are seen on the right PLEURA: No significant pleural effusion identified, no pneumothorax apparent. CARDIOVASCULAR: Normal. OSSEOUS STRUCTURES: No significant abnormalities. VISUALIZED UPPER ABDOMEN: Normal. OTHER FINDINGS: The findings were discussed with Dr. Lucio. IMPRESSION: There is focal consolidation in the region of the left hilum suspicious for pneumonia. It is less likely that this represents asymmetric pulmonary congestion. Chronic interstitial changes are seen on the right
[2017-05-02 11:25] LABS: TROPONIN I 0.01 ng/mL
[2017-05-02 12:21] LABS: PH,URINE 5.5 (4.7-8.0); URINE APPEARANCE CLEAR (CLEAR); URINE BILIRUBIN NEGATIVE (NEGATIVE); URINE BLOOD NEGATIVE (NEGATIVE); URINE COLOR YELLOW (YELLOW); URINE GLUCOSE (UA) NEGATIVE (NEGATIVE); URINE KETONE NEGATIVE (NEGATIVE); URINE LEUKOCYTE ESTERASE NEGATIVE Leu/uL (NEGATIVE); URINE PROTEIN TRACE mg/dL (<30 mg/dL); URINE UROBILINOGEN 0.2 E.U./dL (<1 E.U./dL)
[2017-05-02 12:32] LABS: URINE BACTERIA FEW (NEG); URINE RBC 0 - 2 /hpf (0-2); URINE WBC 0 - 2 /hpf (0-6)
[2017-05-02 12:33] LABS: URINE AMORPHOUS SEDIMENT SMALL
--- NOTE | 2017-05-02 12:56 | CARD ---
APPROVED REPORT EKG Measurement Heart [id number] <Conclusion> Normal sinus rhythm Possible Left atrial enlargement Left axis deviation Inferior-posterior infarct, age undetermined Abnormal ECG
--- NOTE | 2017-05-02 15:03 | CP.PCM.HP ---
Addendum entered and electronically signed by Mary Grace Davis DO 05/02/17 18:45 : Add procalcitonin and CT chest, abdomen, and pelvis to confirm PNA and explore RLQ r/o appendicitis Add blood alcohol, acetaminophen level, UDS to explore reasons of transaminitis Add GI consult for RUQ tenderness, vomiting, transaminitis, hyperbilirubinemia in the setting of acute thrombocytopenia, Hx of Left ischemic colitis. Last colonoscopy 03/29/2016 showed incomplete healing of L sided ischemic colitis. Mild diverticulosis. previous [id number] years and 6 pack of beer daily x 30 years, quit both over 10 years, denies illicit drug use Outpt GI: Dr. Wong Original Note: <Yevgeniy Valderrama - Last Filed: 05/02/17 16:29> History of Present Illness - History of Present Illness History of Present Illness: Patient is a 71 yo male with PMH of empysema, CHF, previous ME s/p 2 cardiac stents, osteoporosis, arthritis, HTN, HLD, GERD and colitis presents to the ED for evaluation of SOB from home. Patient states that the SOB began this morning after he experienced one bout of nonbloody emesis. Patient experienced SOB on exertion when ambulating to the bathroom. Additionally he experienced associated wheezing and dizziness. Patient also states that he experienced nonradiating RLQ pain which began on Tuesday without a specific provoking event. The pain was described as consistent, dull, and is rated a 6/10. The abdominal pain which has resolved since onset without any acute intervention. Also admits to headache localized to the bitemporal region. Patient denies sick contacts, traveling, recent sickness, change in medication or diet. Patient denies nausea , diarrhea, diaphoresis, chest pain, palpitations, cough, difficulty urinating, frequency or dysuria. PMH: Emphysema, CHF, previous ME with 2 stents placed (2008), Osteoporosis, Arthritis, HTN, HLD, GERD, Colitis PSH: 2 cardiac stents (2008) Allergies: NKA Medications: Tramadol 1 tablet/day, Ranitidine 300 mg once daily, Metoprolol Tartrate 25 mg BID, Plavix 75 mg once daily, Simvastatin 40 mg once daily, Lisinopril 10 mg once daily, Calcitonin Nasal [place] 200, Furosemide 20 mg once daily, Vitamin D 2000 mg once daily, Aspirin 81 mg once daily, Spiriva 18 mcg, Advair Disc 250 mg BID, Linzess Social: Cigarettes: Quit 10-15 years ago; 25 pack years 2ppd. Alcohol: Denies. Illicit Drugs: Denies Family: Mother Stroke, Father Arthritis PMD: Dr. Zarate Present on Admission - Present on Admission Any Indicators Present on Admission: No Review of Systems - Review of Systems Review of Systems: 12 point review of systems negative except as indicated in HPI Past Patient History - Infectious Disease Hx of Infectious Diseases: None - Past Social History Smoking Status: Former Smoker - CARDIAC Hx Cardia Arrhythmia: Yes Hx Pacemaker: No - PULMONARY Hx Respiratory Disorders: Yes Hx Chronic Obstructive Pulmonary Disease (COPD): Yes - NEUROLOGICAL Hx Neurological Disorder: No Hx Alzheimer's Disease: No HX Cerebrovascular Accident: No Hx Dementia: No Hx Dizziness: No Hx Meningitis: No Hx Migraine: No Hx Parkinson's Disease: No Hx Seizures: No Hx Transient Ischemic Attacks (TIA): No - HEENT Hx Cataracts: Yes (surgery) - RENAL Hx Chronic Kidney Disease: Yes Hx Dialysis: Yes - ENDOCRINE/METABOLIC Hx Endocrine Disorders: No - HEMATOLOGICAL/ONCOLOGICAL Hx Blood Disorders: No - INTEGUMENTARY Hx Dermatological Problems: No Hx Basil Cell: No Hx Eczema: No Hx Melanoma: No Hx Psoriasis: No Hx Squamous Cell: No - MUSCULOSKELETAL/RHEUMATOLOGICAL Hx Musculoskeletal Disorders: Yes Hx Falls: No - PSYCHIATRIC Hx Emotional Abuse: No Hx Physical Abuse: No Hx Substance Use: No - SURGICAL HISTORY Hx Cardiac Catheterization: Yes Hx Coronary Stent: Yes - ANESTHESIA Hx Anesthesia Reactions: Yes (HYPOTENSIVE AT END OF PROCEDURE IN THE PAST) Hx Malignant Hyperthermia: No Meds Allergies/Adverse Reactions: Allergies Allergy/AdvReac Type Severity Reaction Status Date / Time No Known Allergies Allergy Verified 05/02/17 10:10 Physical Exam - Additional Findings Additional findings: General: NAD Head: Atraumatic, Normocephalic Eyes: EOMI, non-iceteric Heart: +S1 +S2, RRR Lungs: mild wheezing left lower lung quadrant Abdomen: soft, NTTP, + BS in 4 quadrants Neuro: awake, alerts, responds to verbal stimuli, answers questions appropriately, follows commands, moves extremities past midline Extremities: no clubbing, no cyanosis, no edema Psych: normal mood, normal affect Skin: clean, dry, and intact Results - Vital Signs Recent Vital Signs: Last Vital Signs Temp 98.0 F 05/02/17 12:44 Pulse 104 H 05/02/17 14:05 Resp 19 05/02/17 14:05 BP 114/67 05/02/17 14:05 Pulse Ox 95 05/02/17 14:05 - Labs Result Diagrams: 05/02/17 10:41 05/02/17 10:41 Assessment & Plan - Assessment and Plan (Free Text) Assessment: Patient is a 71 yo male with PMH of emphysema, CHF, previous ME s/p 2 cardiac stents, osteoporosis, arthritis, HTN, HLD, GERD and colitis is being admitted for evaluation and treatment of sepsis likely secondary to pneumonia. Sepsis, Healthcare-Associated Pneumonia details- patient is tachycardic 104s, WBC 12, lactate 5.6 to 6.0, meets SIRS criteria and has source details- was given one dose of cefepime and levaquin in ED, was given 2380cc of NS bolus and 40 IV lasix in ED details- CXR on admission reviewed- shows focal consolidation of left hilar region suspcious for pneumonia, patient was in hospital in January, likely healthcare-associated pneumonia - blood cultures - levaquin - cefepime - vancomycin - Influenza swab - Legionella urine antigen - MRSA nasal swab - ID consult - repeat lactate in 6 hours from last draw Acute on Chronic Emphysema Exacerbation, Dyspnea - xopenex - Solumedrol 40 IV daily Acute Exacerbation of CHF Details- BNP on admission is 970 Details- ECHO from 12/15/16 reviewed shows EF of 40% - Continue Furosemide 20 mg once daily - will consider cardiology consult pending clinical course - Heart healthy diet - Strict I/Os - Daily weight Transaminitis, Hyperbilirubinemia - liver ultrasound - hepatitis panel - lipid panel - direct bilirubin - will monitor closely via daily CMP - hold statin Thrombocytopenia Details- platelet count was 50 (364 on 12/16/16) - redraw CBC stat Deconditioned State - PT evaluation and treatment History of ME details- 2 stents placed (2008) - hold Plavix 75 mg once daily and Aspirin 81 mg once daily if redraw CBC shows thrombocytopenia - if thrombocytopenic on redraw consider Sepsis induced DIC workup and hemo-onc consult History of HTN Continue Metoprolol Tartrate 25 mg BID, Lisinopril 10 mg once daily History of HLD - hold Simvastatin 40 mg once daily due to elevated LFTs on admission History of Osteoporosis - Continue Vitamin D 2000 mg once daily History of Arthritis - Continue Tramadol 1 tablet/day History of GERD/ Colitis - Continue Ranitidine 300 mg once daily - Continue Linzess PRN PPX - Ranitidine and SCD Patient case discussed will be d/w attending <Cleveland Mcarthur - Last Filed: 06/17/17 16:42> Results - Vital Signs Recent Vital Signs: Last Vital Signs Temp 97.9 F 05/03/17 13:24 Pulse 44 L 05/05/17 03:46 Resp 19 05/05/17 03:46 BP 60/40 L 05/05/17 02:47 Pulse Ox 66 L 05/05/17 03:40 - Labs Result Diagrams: 05/04/17 15:30 05/04/17 15:30 Attending/Attestation - Attestation I have personally seen and examined this patient.: Yes I have fully participated in the care of the patient.: Yes I have reviewed all pertinent clinical information: Yes Notes (Text): 06/17/17 16:42 Medical record note made by the resident after discussion with my direction and input after the patient was personally seen and examined by me. I have reviewed the chart and agree that the record accurately reflects by personal performance of the history, physical exam, data review, and medical decision-making, in the course for the patient. I have also personally directed the plan of care.
[2017-05-02 15:10] LABS: VENOUS BLOOD GAS BASE EXCESS -4.4 mmol/L (0.0-2.0); VENOUS BLOOD PH 7.37 (7.32-7.43)
[2017-05-02] MEDS ORDERED: Vancomycin 1gm in NS 250ml 1 GM/250 ML BAG IVPB STA (16:13)
[2017-05-02] MEDS ORDERED: Levalbuterol 1.25 MG/3 ML Inhal Soln UD IH PRN (16:16)
[2017-05-02] MEDS ORDERED: methylPREDNISolone 40 GM in Sodium Chloride 0.9% 250 ML IV SCH (17:00)
[2017-05-02] MEDS ORDERED: Cefepime IV 2 gm in NS 2 GM/100 ML BAG IVPB ONE (17:00)
[2017-05-02] MEDS ORDERED: Non Formulary Medication (Simvastatin [Simvastatin] 40 MG) PO SCH (18:00)
--- NOTE | 2017-05-02 18:30 | PCM.SEPTIC ---
Sepsis Progress Note - Reassessment Type Date of Evaluation: 05/02/17 Time of Evaluation: 05:30 Reassessment Type: Non-invasive reassessment - Non Invasive Reassessment Were the most recent vital sign reviewed: Yes Vital Sign (Latest): Temp Pulse Resp BP Pulse Ox 97.9 F 75 20 121/81 95 05/02/17 17:44 05/02/17 17:44 05/02/17 17:44 05/02/17 17:44 05/02/17 14:05 Cardiovascular: Yes: Regular Rate, Rhythm. No: Chest Non Tender, Edema, JVD, Murmur, Bradycardia, Tachycardia Respiratory: Yes: Normal Breath Sounds. No: Crackles, Rales, Rhonchi, Stridor, Wheezing Capillary Refill: Normal (Less than 2 sec) Pulses: Normal Radial, Decreased Dorsalis Pedis (bilateral, L>R, h/o PVD) Skin: Normal Color, Warm, Dry <MARYBEL CEDENO - Last Filed: 05/02/17 18:28> - Non Invasive Reassessment Vital Sign (Latest): Temp Pulse Resp BP Pulse Ox 97.9 F 75 20 121/81 95 05/02/17 17:44 05/02/17 17:44 05/02/17 17:44 05/02/17 17:44 05/02/17 14:05 <Reena Wright - Last Filed: 05/02/17 18:47> Attending/Attestation - Attestation I have personally seen and examined this patient.: Yes I have fully participated in the care of the patient.: Yes I have reviewed all pertinent clinical information, including history, physical exam and plan: Yes Notes (Text): 05/02/17 18:47 Agree with above findings <Reena Wright - Last Filed: 05/02/17 18:47>
[2017-05-02 18:34] LABS: BASO # 0.04 K/mm3 (0.0-2.0); BASO % 0.3 % (0.0-3.0); EOS # 0.1 (0.0-0.7); EOS % 0.6 % (1.5-5.0); GRAN # 12.15 (1.4-6.5); GRAN % 84.2 % (50.0-68.0); HEMATOCRIT 31.4 % (42.0-52.0); LYMPH # 1.1 (1.2-3.4); LYMPH % 7.3 % (22.0-35.0); MEAN CELL VOLUME 92.6 fl (80.0-105.0); MEAN CORPUSCULAR HEMOGLOBIN 31.9 pg (25.0-35.0); MEAN CORPUSCULAR HGB CONC 34.4 g/dl (31.0-37.0); MEAN PLATELET VOLUME 10.2 fl (7.0-11.0); MONO # 1.1 (0.1-0.6); MONO % 7.6 % (1.0-6.0); RED CELL DISTRIBUTION WIDTH 13.3 % (11.5-14.5); WHITE BLOOD COUNT 14.4 10^3/ul (4.5-11.0)
[2017-05-02 18:39] LABS: BILIRUBIN,DIRECT 0.4 mg/dL (0.0-0.4)
[2017-05-02] MEDS ORDERED: Cefepime (Maxipime) 1 g Inj IVPB SCH (19:00)
[2017-05-02] MEDS ORDERED: Pneumococcal 23-Valent Vaccine IM ONE (19:01)
[2017-05-02] MEDS: Budesonide 0.5 mg/2 ml Inhal Susp UD IH SCH (20:05)
[2017-05-02] MEDS: Arformoterol 15 mcg/2 ml Inh Sol IH SCH (20:05)
[2017-05-02] MEDS: MethylPREDNISolone 40 mg Vial IVP SCH (21:00)
[2017-05-02] MEDS: Meropenem 1g/NS 100mL IVPB 1 GM/100 ML PIGGYBACK IVPB SCH (21:00)
[2017-05-02] MEDS: Atovaquone 750 mg/5 ml Susp UD PO SCH (21:00)
[2017-05-02 21:16] LABS: VENOUS BLOOD PH 7.36 (7.32-7.43)
--- NOTE | 2017-05-02 21:51 | CP.PCM.PCO ---
<SARAY TEJEDA - Last Filed: 05/02/17 21:50> Physician Communication Note - Physician Communication Note Physician Communication Note: Lactate 6.5, pt examined, mild crackles RLL, start mild hydration,[id number] <Calvin Graham - Last Filed: 05/03/17 02:50> Attending/Attestation - Attestation I have personally seen and examined this patient.: No I have fully participated in the care of the patient.: Yes I have reviewed all pertinent clinical information: Yes
[2017-05-02] MEDS ORDERED: Sodium Chloride 0.9% 1,000 ML IV SCH (22:00)
[2017-05-02] MEDS ORDERED: Cefepime IV 2 gm in NS 2 GM/100 ML BAG IVPB SCH (22:00)
[2017-05-03 01:00] LABS: VENOUS BLOOD GAS BASE EXCESS -7.3 mmol/L (0.0-2.0); VENOUS BLOOD PH 7.36 (7.32-7.43)
[2017-05-03] MEDS: Meropenem 1g/NS 100mL IVPB 1 GM/100 ML PIGGYBACK IVPB SCH ×3 (05:00→22:03)
[2017-05-03 07:24] LABS: BASO # 0.03 K/mm3 (0.0-2.0); BASO % 0.2 % (0.0-3.0); EOS % 0.1 % (1.5-5.0); GRAN # 11.58 (1.4-6.5); GRAN % 90.6 % (50.0-68.0); HEMATOCRIT 29.5 % (42.0-52.0); LYMPH # 0.7 (1.2-3.4); LYMPH % 5.4 % (22.0-35.0); MEAN CELL VOLUME 92.2 fl (80.0-105.0); MEAN CORPUSCULAR HEMOGLOBIN 32.2 pg (25.0-35.0); MEAN CORPUSCULAR HGB CONC 34.9 g/dl (31.0-37.0); MEAN PLATELET VOLUME 10.3 fl (7.0-11.0); MONO # 0.5 (0.1-0.6); MONO % 3.7 % (1.0-6.0); PLATELET COUNT 45 10^3/uL (120.0-450.0); RED CELL DISTRIBUTION WIDTH 13.7 % (11.5-14.5); WHITE BLOOD COUNT 12.8 10^3/ul (4.5-11.0)
[2017-05-03 07:37] LABS: ALB/GLOB RATIO 1.3 (1.1-1.8); ALKALINE PHOSPHATASE 144 U/L (38-133); ALT/SGPT 76 U/L (7-56); AST/SGOT 276 U/L (15-59); BILIRUBIN,TOTAL 1.4 mg/dL (0.2-1.3); BLOOD UREA NITROGEN 20 mg/dL (7-21); CALCIUM 10.1 mg/dL (8.4-10.5); CARBON DIOXIDE 16 mmol/L (21-33); CHLORIDE 104 mmol/L (98-107); GFR AFRICAN-AMERICAN > 60; GLUCOSE,RANDOM 151 mg/dL (70-110); MAGNESIUM 1.7 mg/dL (1.7-2.2); PHOSPHOROUS 3.8 mg/dL (2.5-4.5); POTASSIUM 4.8 mmol/L (3.6-5.0); SODIUM 137 mmol/L (132-148); TOTAL PROTEIN 6.9 g/dL (5.8-8.3)
[2017-05-03 07:49] LABS: TROPONIN I 0.04 ng/mL
--- NOTE | 2017-05-03 07:54 | CP.PCM.CON ---
<YossimiriamrenyBoby kirby - Last Filed: 05/03/17 16:52> History of Present Illness - History of Present Illness History of Present Illness: GI Consult Note 71 y/o M with PMH of HTN, HLD, CHF, GA s/p 2 stents on Plavix, osteoporosis, arthritis, GERD, and chronic ischemic colitis initially presented for SOB for 1 day. Patient states he began feeling short of breath and also experienced an episode of nonbloody emesis. Pt will did have shortness of breath on exertion at home over the past couple days. In addition, patient was complaining of sharp RLQ pain that lasted a short amount of time. In the ED, patient had abdominal pain resolve. Patient has a history of ischemic colitis in which he follows with Dr. Wong as an outpatient. Pt had most recent flex sigmoidoscopy in 03/2016 which showed improvement in ulcerated sigmoid colon mucosa, diverticulosis, and 5 mm tubular adenoma. Patient last saw Dr. Wong 3 months ago with no change in management. Pt has been compliant with medications and no recent changes to medication or lifestyle. Denies CP, SOB, N/V/D, fever, chills , changes to medication, hematochezia, dysphagia, itching. PMH: HTN, HLD, CHF, GA s/p 2 stents on Plavix, osteoporosis, arthritis, GERD, and chronic ischemic colitis PSH: 2 cardiac stents FMH: Stroke Social Hx: Former heavy smoker and alcohol user, quit 15 years ago. Denies illicit drug use. Lives at home with . Allergies: NKA Medications: Reviewed, as per MAR Review of Systems - Review of Systems Review of Systems: 12 point review of systems as per HPI, otherwise negative. Past Patient History - Infectious Disease Hx of Infectious Diseases: None - Past Social History Smoking Status: Former Smoker - CARDIAC Hx Cardiac Disorders: Yes Hx Cardia Arrhythmia: Yes Hx Congestive Heart Failure: Yes Hx Hypercholesterolemia: Yes Hx Hypertension: Yes Hx Pacemaker: No Hx Peripheral Edema: Yes (+1 pitting ble) - PULMONARY Hx Respiratory Disorders: Yes (chronic cough) Hx Chronic Obstructive Pulmonary Disease (COPD): Yes - NEUROLOGICAL Hx Neurological Disorder: No Hx Alzheimer's Disease: No HX Cerebrovascular Accident: No Hx Dementia: No Hx Dizziness: No Hx Meningitis: No Hx Migraine: No Hx Parkinson's Disease: No Hx Seizures: No Hx Transient Ischemic Attacks (TIA): No - HEENT Hx Cataracts: Yes (surgery b/l) - RENAL Hx Chronic Kidney Disease: Yes - ENDOCRINE/METABOLIC Hx Endocrine Disorders: No - HEMATOLOGICAL/ONCOLOGICAL Hx Blood Disorders: (blood transfusion from ischemic colitis) - INTEGUMENTARY Hx Dermatological Problems: No Hx Basil Cell: No Hx Eczema: No Hx Melanoma: No Hx Psoriasis: No Hx Squamous Cell: No Other/Comment: multiple skin discolorations b/l arms - MUSCULOSKELETAL/RHEUMATOLOGICAL Hx Falls: No - GASTROINTESTINAL Other/Comment: ischemic colitis, colon polyp removed, hiatal hernia - PSYCHIATRIC Hx Substance Use: No - SURGICAL HISTORY Hx Surgeries: Yes Hx Cardiac Catheterization: Yes Hx Coronary Stent: Yes - ANESTHESIA Hx Anesthesia Reactions: Yes (HYPOTENSIVE AT END OF PROCEDURE IN THE PAST) Hx Malignant Hyperthermia: No Meds Allergies/Adverse Reactions: Allergies Allergy/AdvReac Type Severity Reaction Status Date / Time No Known Allergies Allergy Verified 05/02/17 10:10 - Medications Medications: Current Medications Arformoterol Tartrate (Brovana) 15 mcg IH [id number] [facility] Last Admin: 05/02/17 20:05 Dose: 15 mcg Atovaquone (Mepron) 750 mg PO BID [facility] Stop: 05/11/17 19:26 Last Admin: 05/02/17 21:00 Dose: 750 mg Budesonide (Pulmicort Respules) 0.5 mg IH [id number] [facility] Last Admin: 05/02/17 20:05 Dose: 0.5 mg Cholecalciferol (Vitamin D) 2,000 iu PO DAILY [facility] Famotidine (Pepcid) 40 mg PO HS [facility] Last Admin: 05/02/17 21:00 Dose: 40 mg Furosemide (Lasix) 20 mg PO DAILY [facility] Doxycycline Hyclate 100 mg/ (Sodium Chloride) 100 mls @ 100 mls/hr IVPB Q12 [facility] PRN Reason: Protocol Stop: 05/11/17 22:01 Last Admin: 05/02/17 22:17 Dose: 100 mls/hr Meropenem 1g/NS 100mL IVPB (Meropenem 1g/Ns 100ml Ivpb) 1 gm in 100 mls @ 100 mls/hr IVPB Q8 [facility] PRN Reason: Protocol Stop: 05/11/17 22:01 Last Admin: 05/03/17 05:00 Dose: 100 mls/hr Sodium Chloride (Sodium Chloride 0.9%) 1,000 mls @ 50 mls/hr IV .Q20H [facility] Last Admin: 05/02/17 22:17 Dose: 50 mls/hr Levalbuterol HCl (Xopenex) 1.25 mg IH [id number] [facility] Lisinopril (Zestril) 10 mg PO QAM [facility] Methylprednisolone (Solu-Medrol) 40 mg IVP Q12 [facility] Last Admin: 05/02/17 21:00 Dose: 40 mg Metoprolol Tartrate (Lopressor) 25 mg PO BID [facility] Last Admin: 05/02/17 17:41 Dose: 25 mg Tramadol HCl (Ultram) 50 mg PO Q4H PRN PRN Reason: Pain, moderate (4-7) Last Admin: 05/03/17 03:16 Dose: 50 mg Physical Exam - Constitutional Appears: Non-toxic, No Acute Distress - Head Exam Head Exam: ATRAUMATIC, NORMAL INSPECTION, NORMOCEPHALIC - ENT Exam ENT Exam: Mucous Membranes Moist - Respiratory Exam Respiratory Exam: Clear to Auscultation Bilateral, NORMAL BREATHING PATTERN. absent: Rales, Rhonchi, Wheezes - Cardiovascular Exam Cardiovascular Exam: RRR, +S1, +S2 - GI/Abdominal Exam GI & Abdominal Exam: Normal Bowel Sounds, Soft. absent: Distended, Guarding, Rebound, Tenderness - Extremities Exam Extremities exam: Negative for: calf tenderness, pedal edema - Neurological Exam Neurological exam: Alert, Oriented x3 - Psychiatric Exam Psychiatric exam: Normal Affect, Normal Mood - Skin Skin Exam: Intact, Normal Color, Warm Results - Vital Signs Recent Vital Signs: Last Vital Signs Temp 98.4 F 05/03/17 05:32 Pulse 91 H 05/03/17 05:32 Resp 22 05/03/17 05:32 BP 129/71 05/03/17 05:32 Pulse Ox 92 L 05/03/17 05:32 - Labs Result Diagrams: 05/03/17 06:30 05/03/17 06:30 Labs: Laboratory Results - last 24 hr 05/02/17 05/02/17 05/02/17 15:00 18:20 18:20 WBC 14.4 H RBC 3.39 L Hgb 10.8 L Hct 31.4 L MCV 92.6 MCH 31.9 MCHC 34.4 RDW 13.3 Plt Count 46 L* MPV 10.2 Gran % 84.2 H Lymph % (Auto) 7.3 L Bowman % (Auto) 7.6 H Eos % (Auto) 0.6 L Baso % (Auto) 0.3 Gran # 12.15 H Lymph # 1.1 L Bowman # 1.1 H Eos # 0.1 Baso # 0.04 pO2 22 L VBG pH 7.37 VBG pCO2 35.0 L VBG HCO3 20.2 L VBG Total CO2 21.3 L VBG O2 Sat (Calc) 41.7 VBG Base Excess -4.4 L VBG Potassium 4.4 Sodium 134.0 Chloride 97.0 L Glucose 130 H Lactate 6.0 H* FiO2 21.0 Potassium Carbon Dioxide Anion Gap BUN Creatinine Est GFR ( Amer) Est GFR (Non-Af Amer) Random Glucose Calcium Phosphorus Magnesium Total Bilirubin Direct Bilirubin 0.4 AST ALT Alkaline Phosphatase Total Creatine Kinase Total Protein Albumin Globulin Albumin/Globulin Ratio Triglycerides 145 Cholesterol 98 L LDL Cholesterol Direct 39 HDL Cholesterol 39 Venous Blood Potassium 4.4 Urine Opiates Screen Urine Methadone Screen Acetaminophen Ur Barbiturates Screen Ur Phencyclidine Scrn Ur Amphetamines Screen U Benzodiazepines Scrn U Oth Cocaine Metabols U Cannabinoids Screen Alcohol, Quantitative 05/02/17 05/02/17 05/02/17 18:20 18:20 20:47 WBC RBC Hgb Hct MCV MCH MCHC RDW Plt Count MPV Gran % Lymph % (Auto) Bowman % (Auto) Eos % (Auto) Baso % (Auto) Gran # Lymph # Bowman # Eos # Baso # pO2 VBG pH VBG pCO2 VBG HCO3 VBG Total CO2 VBG O2 Sat (Calc) VBG Base Excess VBG Potassium Sodium Chloride Glucose Lactate FiO2 Potassium Carbon Dioxide Anion Gap BUN Creatinine Est GFR ( Amer) Est GFR (Non-Af Amer) Random Glucose Calcium Phosphorus Magnesium Total Bilirubin Direct Bilirubin AST ALT Alkaline Phosphatase Total Creatine Kinase Total Protein Albumin Globulin Albumin/Globulin Ratio Triglycerides Cholesterol LDL Cholesterol Direct HDL Cholesterol Venous Blood Potassium Urine Opiates Screen Negative Urine Methadone Screen Negative Acetaminophen < 10.0 L Ur Barbiturates Screen Negative Ur Phencyclidine Scrn Negative Ur Amphetamines Screen Negative U Benzodiazepines Scrn Negative U Oth Cocaine Metabols Negative U Cannabinoids Screen Negative Alcohol, Quantitative < 10 05/02/17 05/03/17 05/03/17 21:00 00:20 06:30 WBC 12.8 H RBC 3.20 L Hgb 10.3 L Hct 29.5 L MCV 92.2 MCH 32.2 MCHC 34.9 RDW 13.7 Plt Count 45 L* MPV 10.3 Gran % 90.6 H Lymph % (Auto) 5.4 L Bowman % (Auto) 3.7 Eos % (Auto) 0.1 L Baso % (Auto) 0.2 Gran # 11.58 H Lymph # 0.7 L Bowman # 0.5 Eos # 0.0 Baso # 0.03 pO2 44 69 H VBG pH 7.36 7.36 VBG pCO2 35.0 L 30.0 L VBG HCO3 19.8 L 16.9 L VBG Total CO2 20.9 L 17.8 L VBG O2 Sat (Calc) 84.1 H 96.9 H VBG Base Excess -5.0 L -7.3 L VBG Potassium 4.5 4.8 Sodium 135.0 134.0 Chloride 100.0 101.0 Glucose 134 H 153 H Lactate 6.5 H* 6.3 H* FiO2 21.0 21.0 Potassium Carbon Dioxide Anion Gap BUN Creatinine Est GFR ( Amer) Est GFR (Non-Af Amer) Random Glucose Calcium Phosphorus Magnesium Total Bilirubin Direct Bilirubin AST ALT Alkaline Phosphatase Total Creatine Kinase Total Protein Albumin Globulin Albumin/Globulin Ratio Triglycerides Cholesterol LDL Cholesterol Direct HDL Cholesterol Venous Blood Potassium 4.5 4.8 Urine Opiates Screen Urine Methadone Screen Acetaminophen Ur Barbiturates Screen Ur Phencyclidine Scrn Ur Amphetamines Screen U Benzodiazepines Scrn U Oth Cocaine Metabols U Cannabinoids Screen Alcohol, Quantitative 05/03/17 06:30 WBC RBC Hgb Hct MCV MCH MCHC RDW Plt Count MPV Gran % Lymph % (Auto) Bowman % (Auto) Eos % (Auto) Baso % (Auto) Gran # Lymph # Bowman # Eos # Baso # pO2 VBG pH VBG pCO2 VBG HCO3 VBG Total CO2 VBG O2 Sat (Calc) VBG Base Excess VBG Potassium Sodium 137 Chloride 104 Glucose Lactate FiO2 Potassium 4.8 Carbon Dioxide 16 L Anion Gap 22 H BUN 20 Creatinine 1.3 Est GFR ( Amer) > 60 Est GFR (Non-Af Amer) 54 Random Glucose 151 H Calcium 10.1 Phosphorus 3.8 Magnesium 1.7 Total Bilirubin 1.4 H Direct Bilirubin AST 276 H ALT 76 H Alkaline Phosphatase 144 H Total Creatine Kinase 665 H Total Protein 6.9 Albumin 3.9 Globulin 2.9 Albumin/Globulin Ratio 1.3 Triglycerides Cholesterol LDL Cholesterol Direct HDL Cholesterol Venous Blood Potassium Urine Opiates Screen Urine Methadone Screen Acetaminophen Ur Barbiturates Screen Ur Phencyclidine Scrn Ur Amphetamines Screen U Benzodiazepines Scrn U Oth Cocaine Metabols U Cannabinoids Screen Alcohol, Quantitative Assessment & Plan - Assessment and Plan (Free Text) Plan: 71 y/o M with PMH of HTN, HLD, CHF, GA s/p 2 stents on Plavix, osteoporosis, arthritis, GERD, and chronic ischemic colitis presents with healthcare acquired pneumonia along with new lung hilar mass with liver metastases. Chest/Abdomen/ Pelvis CT showed left hilar mass with extensive mediastinal adenopathy with focal consolidation and possible mass in the left upper lobe anteriorly, also metastatic disease noted in the liver. Clinical and laboratory picture consistent with malignancy at this time. Plan: Consult Oncology Consider biopsy Continue diet as tolerated Continue pain control Continue current medical management for possible infection Cintia, PGY-2 <Fransisco Vo Y - Last Filed: 05/03/17 17:05> Meds - Medications Medications: Current Medications Acetaminophen (Tylenol 325mg Tab) 650 mg PO Q4 PRN PRN Reason: Pain, Mild (1-3) Arformoterol Tartrate (Brovana) 15 mcg IH [id number] [facility] Last Admin: 05/03/17 10:01 Dose: 15 mcg Atovaquone (Mepron) 750 mg PO BID [facility] Stop: 05/11/17 19:26 Last Admin: 05/03/17 09:42 Dose: 750 mg Budesonide (Pulmicort Respules) 0.5 mg IH [id number] [facility] Last Admin: 05/03/17 10:02 Dose: 0.5 mg Cholecalciferol (Vitamin D) 2,000 iu PO DAILY [facility] Last Admin: 05/03/17 09:42 Dose: 2,000 iu Famotidine (Pepcid) 40 mg PO HS [facility] Last Admin: 05/02/17 21:00 Dose: 40 mg Furosemide (Lasix) 20 mg PO DAILY [facility] Last Admin: 05/03/17 09:42 Dose: 20 mg Doxycycline Hyclate 100 mg/ (Sodium Chloride) 100 mls @ 100 mls/hr IVPB Q12 [facility] PRN Reason: Protocol Stop: 05/11/17 22:01 Last Admin: 05/03/17 09:43 Dose: 100 mls/hr Meropenem 1g/NS 100mL IVPB (Meropenem 1g/Ns 100ml Ivpb) 1 gm in 100 mls @ 100 mls/hr IVPB Q8 [facility] PRN Reason: Protocol Stop: 05/11/17 22:01 Last Admin: 05/03/17 05:00 Dose: 100 mls/hr Sodium Chloride (Sodium Chloride 0.9%) 1,000 mls @ 50 mls/hr IV .Q20H [facility] Last Admin: 05/02/17 22:17 Dose: 50 mls/hr Propofol (Diprivan) 1,000 mg in 100 mls @ 3.443 mls/hr IV .Q24H PRN; Protocol; 5 MCG/KG/MIN PRN Reason: TITRATE PER MD ORDER Levalbuterol HCl (Xopenex) 1.25 mg IH [id number] [facility] Last Admin: 05/03/17 14:26 Dose: 1.25 mg Lisinopril (Zestril) 10 mg PO QAM [facility] Last Admin: 05/03/17 09:43 Dose: 10 mg Methylprednisolone (Solu-Medrol) 40 mg IVP Q12 [facility] Last Admin: 05/03/17 09:42 Dose: 40 mg Metoprolol Tartrate (Lopressor) 25 mg PO BID [facility] Last Admin: 05/03/17 09:43 Dose: 25 mg Oxycodone/Acetaminophen (Percocet 5/325 Mg Tab) 1 tab PO Q4H PRN PRN Reason: Pain, moderate (4-7) Stop: 05/06/17 12:43 Tramadol HCl (Ultram) 50 mg PO Q4H PRN PRN Reason: Pain, moderate (4-7) Last Admin: 05/03/17 03:16 Dose: 50 mg Results - Vital Signs Recent Vital Signs: Last Vital Signs Temp 97.9 F 05/03/17 13:24 Pulse 85 05/03/17 13:24 Resp 23 05/03/17 15:54 BP 106/63 05/03/17 13:24 Pulse Ox 80 L 05/03/17 15:54 - Labs Result Diagrams: 05/03/17 14:35 05/03/17 14:35 Labs: Laboratory Results - last 24 hr 05/02/17 05/02/17 05/02/17 18:20 18:20 18:20 WBC 14.4 H RBC 3.39 L Hgb 10.8 L Hct 31.4 L MCV 92.6 MCH 31.9 MCHC 34.4 RDW 13.3 Plt Count 46 L* MPV 10.2 Gran % 84.2 H Lymph % (Auto) 7.3 L Bowman % (Auto) 7.6 H Eos % (Auto) 0.6 L Baso % (Auto) 0.3 Gran # 12.15 H Lymph # 1.1 L Bowman # 1.1 H Eos # 0.1 Baso # 0.04 Neutrophils % (Manual) Band Neutrophils % Lymphocytes % (Manual) Monocytes % (Manual) Platelet Evaluation Hypochromasia Anisocytosis (manual) PT INR APTT pCO2 pO2 HCO3 ABG pH ABG Total CO2 ABG O2 Saturation ABG O2 Content ABG Base Excess ABG Hemoglobin ABG Carboxyhemoglobin POC ABG HHb (Measured) ABG Methemoglobin ABG O2 Capacity ABG Potassium VBG pH VBG pCO2 VBG HCO3 VBG Total CO2 VBG O2 Sat (Calc) VBG Base Excess VBG Potassium Hgb O2 Saturation Sodium Chloride Glucose Lactate Mechanical Rate FiO2 Tidal Volume PEEP Potassium Carbon Dioxide Anion Gap BUN Creatinine Est GFR ( Amer) Est GFR (Non-Af Amer) Random Glucose Calcium Phosphorus Magnesium Total Bilirubin Direct Bilirubin 0.4 AST ALT Alkaline Phosphatase Lactate Dehydrogenase Total Creatine Kinase CK-MB (CK-2) CK-MB (CK-2) % Troponin I Total Protein Albumin Globulin Albumin/Globulin Ratio Triglycerides 145 Cholesterol 98 L LDL Cholesterol Direct 39 HDL Cholesterol 39 Procalcitonin Arterial Blood Potassium Venous Blood Potassium Urine Opiates Screen Urine Methadone Screen Acetaminophen Ur Barbiturates Screen Ur Phencyclidine Scrn Ur Amphetamines Screen U Benzodiazepines Scrn U Oth Cocaine Metabols U Cannabinoids Screen Alcohol, Quantitative < 10 Hepatitis A IgM Ab Hep Bs Antigen Hep B Core IgM Ab Hepatitis C Antibody Ur L.pneumophila Ag Blood Type Antibody Screen Crossmatch BBK History Checked 05/02/17 05/02/17 05/02/17 18:20 18:20 18:20 WBC RBC Hgb Hct MCV MCH MCHC RDW Plt Count MPV Gran % Lymph % (Auto) Bowman % (Auto) Eos % (Auto) Baso % (Auto) Gran # Lymph # Bowman # Eos # Baso # Neutrophils % (Manual) Band Neutrophils % Lymphocytes % (Manual) Monocytes % (Manual) Platelet Evaluation Hypochromasia Anisocytosis (manual) PT INR APTT pCO2 pO2 HCO3 ABG pH ABG Total CO2 ABG O2 Saturation ABG O2 Content ABG Base Excess ABG Hemoglobin ABG Carboxyhemoglobin POC ABG HHb (Measured) ABG Methemoglobin ABG O2 Capacity ABG Potassium VBG pH VBG pCO2 VBG HCO3 VBG Total CO2 VBG O2 Sat (Calc) VBG Base Excess VBG Potassium Hgb O2 Saturation Sodium Chloride Glucose Lactate Mechanical Rate FiO2 Tidal Volume PEEP Potassium Carbon Dioxide Anion Gap BUN Creatinine Est GFR ( Amer) Est GFR (Non-Af Amer) Random Glucose Calcium Phosphorus Magnesium Total Bilirubin Direct Bilirubin AST ALT Alkaline Phosphatase Lactate Dehydrogenase Total Creatine Kinase CK-MB (CK-2) CK-MB (CK-2) % Troponin I Total Protein Albumin Globulin Albumin/Globulin Ratio Triglycerides Cholesterol LDL Cholesterol Direct HDL Cholesterol Procalcitonin 0.30 Arterial Blood Potassium Venous Blood Potassium Urine Opiates Screen Urine Methadone Screen Acetaminophen < 10.0 L Ur Barbiturates Screen Ur Phencyclidine Scrn Ur Amphetamines Screen U Benzodiazepines Scrn U Oth Cocaine Metabols U Cannabinoids Screen Alcohol, Quantitative Hepatitis A IgM Ab Negative Hep Bs Antigen Negative Hep B Core IgM Ab Negative Hepatitis C Antibody Negative Ur L.pneumophila Ag Blood Type Antibody Screen Crossmatch BBK History Checked 05/02/17 05/02/17 05/02/17 20:47 20:47 21:00 WBC RBC Hgb Hct MCV MCH MCHC RDW Plt Count MPV Gran % Lymph % (Auto) Bowman % (Auto) Eos % (Auto) Baso % (Auto) Gran # Lymph # Bowman # Eos # Baso # Neutrophils % (Manual) Band Neutrophils % Lymphocytes % (Manual) Monocytes % (Manual) Platelet Evaluation Hypochromasia Anisocytosis (manual) PT INR APTT pCO2 pO2 44 HCO3 ABG pH ABG Total CO2 ABG O2 Saturation ABG O2 Content ABG Base Excess ABG Hemoglobin ABG Carboxyhemoglobin POC ABG HHb (Measured) ABG Methemoglobin ABG O2 Capacity ABG Potassium VBG pH 7.36 VBG pCO2 35.0 L VBG HCO3 19.8 L VBG Total CO2 20.9 L VBG O2 Sat (Calc) 84.1 H VBG Base Excess -5.0 L VBG Potassium 4.5 Hgb O2 Saturation Sodium 135.0 Chloride 100.0 Glucose 134 H Lactate 6.5 H* Mechanical Rate FiO2 21.0 Tidal Volume PEEP Potassium Carbon Dioxide Anion Gap BUN Creatinine Est GFR ( Amer) Est GFR (Non-Af Amer) Random Glucose Calcium Phosphorus Magnesium Total Bilirubin Direct Bilirubin AST ALT Alkaline Phosphatase Lactate Dehydrogenase Total Creatine Kinase CK-MB (CK-2) CK-MB (CK-2) % Troponin I Total Protein Albumin Globulin Albumin/Globulin Ratio Triglycerides Cholesterol LDL Cholesterol Direct HDL Cholesterol Procalcitonin Arterial Blood Potassium Venous Blood Potassium 4.5 Urine Opiates Screen Negative Urine Methadone Screen Negative Acetaminophen Ur Barbiturates Screen Negative Ur Phencyclidine Scrn Negative Ur Amphetamines Screen Negative U Benzodiazepines Scrn Negative U Oth Cocaine Metabols Negative U Cannabinoids Screen Negative Alcohol, Quantitative Hepatitis A IgM Ab Hep Bs Antigen Hep B Core IgM Ab Hepatitis C Antibody Ur L.pneumophila Ag Negative Blood Type Antibody Screen Crossmatch BBK History Checked 05/03/17 05/03/17 05/03/17 00:20 06:30 06:30 WBC 12.8 H RBC 3.20 L Hgb 10.3 L Hct 29.5 L MCV 92.2 MCH 32.2 MCHC 34.9 RDW 13.7 Plt Count 45 L* MPV 10.3 Gran % 90.6 H Lymph % (Auto) 5.4 L Bowman % (Auto) 3.7 Eos % (Auto) 0.1 L Baso % (Auto) 0.2 Gran # 11.58 H Lymph # 0.7 L Bowman # 0.5 Eos # 0.0 Baso # 0.03 Neutrophils % (Manual) 89 H Band Neutrophils % 2 Lymphocytes % (Manual) 8 L Monocytes % (Manual) 1 Platelet Evaluation Low Hypochromasia Slight Anisocytosis (manual) 1+ PT INR APTT pCO2 pO2 69 H HCO3 ABG pH ABG Total CO2 ABG O2 Saturation ABG O2 Content ABG Base Excess ABG Hemoglobin ABG Carboxyhemoglobin POC ABG HHb (Measured) ABG Methemoglobin ABG O2 Capacity ABG Potassium VBG pH 7.36 VBG pCO2 30.0 L VBG HCO3 16.9 L VBG Total CO2 17.8 L VBG O2 Sat (Calc) 96.9 H VBG Base Excess -7.3 L VBG Potassium 4.8 Hgb O2 Saturation Sodium 134.0 137 Chloride 101.0 104 Glucose 153 H Lactate 6.3 H* Mechanical Rate FiO2 21.0 Tidal Volume PEEP Potassium 4.8 Carbon Dioxide 16 L Anion Gap 22 H BUN 20 Creatinine 1.3 Est GFR ( Amer) > 60 Est GFR (Non-Af Amer) 54 Random Glucose 151 H Calcium 10.1 Phosphorus 3.8 Magnesium 1.7 Total Bilirubin 1.4 H Direct Bilirubin AST 276 H ALT 76 H Alkaline Phosphatase 144 H Lactate Dehydrogenase 5735 H Total Creatine Kinase 665 H CK-MB (CK-2) 14.0 H CK-MB (CK-2) % 2.1 L Troponin I 0.04 D Total Protein 6.9 Albumin 3.9 Globulin 2.9 Albumin/Globulin Ratio 1.3 Triglycerides Cholesterol LDL Cholesterol Direct HDL Cholesterol Procalcitonin Arterial Blood Potassium Venous Blood Potassium 4.8 Urine Opiates Screen Urine Methadone Screen Acetaminophen Ur Barbiturates Screen Ur Phencyclidine Scrn Ur Amphetamines Screen U Benzodiazepines Scrn U Oth Cocaine Metabols U Cannabinoids Screen Alcohol, Quantitative Hepatitis A IgM Ab Hep Bs Antigen Hep B Core IgM Ab Hepatitis C Antibody Ur L.pneumophila Ag Blood Type Antibody Screen Crossmatch BBK History Checked 05/03/17 05/03/17 05/03/17 10:20 14:35 14:35 WBC 15.5 H D RBC 2.26 L Hgb 7.3 L D Hct 21.6 L MCV 95.6 D MCH 32.3 MCHC 33.8 RDW 13.9 Plt Count 37 L* MPV 10.6 Gran % 87.1 H Lymph % (Auto) 7.3 L Bowman % (Auto) 5.0 Eos % (Auto) 0.3 L Baso % (Auto) 0.3 Gran # 13.52 H Lymph # 1.1 L Bowman # 0.8 H Eos # 0.0 Baso # 0.04 Neutrophils % (Manual) Band Neutrophils % Lymphocytes % (Manual) Monocytes % (Manual) Platelet Evaluation Hypochromasia Anisocytosis (manual) PT INR APTT pCO2 28 L pO2 73.0 L HCO3 17.3 L ABG pH 7.40 ABG Total CO2 18.2 L ABG O2 Saturation 97.3 ABG O2 Content 13.5 L ABG Base Excess -6.4 L ABG Hemoglobin 10.2 L ABG Carboxyhemoglobin 2.2 H POC ABG HHb (Measured) 2.6 ABG Methemoglobin 1.4 ABG O2 Capacity 13.9 L ABG Potassium VBG pH VBG pCO2 VBG HCO3 VBG Total CO2 VBG O2 Sat (Calc) VBG Base Excess VBG Potassium Hgb O2 Saturation 93.8 L Sodium 136 Chloride 106 Glucose Lactate Mechanical Rate FiO2 28.0 Tidal Volume PEEP Potassium 5.3 H Carbon Dioxide 13 L Anion Gap 22 H BUN 22 H Creatinine 1.5 H Est GFR ( Amer) 56 Est GFR (Non-Af Amer) 46 Random Glucose 262 H Calcium 9.2 Phosphorus 4.9 H Magnesium 1.9 Total Bilirubin 1.0 Direct Bilirubin AST 195 H ALT 64 H Alkaline Phosphatase 92 Lactate Dehydrogenase 4217 H Total Creatine Kinase 463 H CK-MB (CK-2) 10.4 H CK-MB (CK-2) % 2.2 L Troponin I 0.04 Total Protein 4.9 L Albumin 2.7 L Globulin 2.2 Albumin/Globulin Ratio 1.2 Triglycerides Cholesterol LDL Cholesterol Direct HDL Cholesterol Procalcitonin Arterial Blood Potassium Venous Blood Potassium Urine Opiates Screen Urine Methadone Screen Acetaminophen Ur Barbiturates Screen Ur Phencyclidine Scrn Ur Amphetamines Screen U Benzodiazepines Scrn U Oth Cocaine Metabols U Cannabinoids Screen Alcohol, Quantitative Hepatitis A IgM Ab Hep Bs Antigen Hep B Core IgM Ab Hepatitis C Antibody Ur L.pneumophila Ag Blood Type Antibody Screen Crossmatch BBK History Checked 05/03/17 05/03/17 05/03/17 14:35 14:40 14:47 WBC RBC Hgb Hct MCV MCH MCHC RDW Plt Count MPV Gran % Lymph % (Auto) Bowman % (Auto) Eos % (Auto) Baso % (Auto) Gran # Lymph # Bowman # Eos # Baso # Neutrophils % (Manual) Band Neutrophils % Lymphocytes % (Manual) Monocytes % (Manual) Platelet Evaluation Hypochromasia Anisocytosis (manual) PT INR APTT pCO2 25 L pO2 59 H 73.0 L HCO3 11.0 L ABG pH 7.25 L ABG Total CO2 11.8 L ABG O2 Saturation 97.9 ABG O2 Content ABG Base Excess -14.5 L ABG Hemoglobin ABG Carboxyhemoglobin POC ABG HHb (Measured) ABG Methemoglobin ABG O2 Capacity ABG Potassium 5.2 VBG pH 7.27 L VBG pCO2 26.0 L VBG HCO3 11.9 L VBG Total CO2 12.7 L VBG O2 Sat (Calc) 93.3 H VBG Base Excess -13.7 L VBG Potassium 5.3 H Hgb O2 Saturation Sodium 135.0 135.0 Chloride 105.0 107.0 Glucose 294 H 293 H Lactate 10.2 H* 10.2 H* Mechanical Rate FiO2 21.0 36.0 Tidal Volume PEEP Potassium Carbon Dioxide Anion Gap BUN Creatinine Est GFR ( Amer) Est GFR (Non-Af Amer) Random Glucose Calcium Phosphorus Magnesium Total Bilirubin Direct Bilirubin AST ALT Alkaline Phosphatase Lactate Dehydrogenase Total Creatine Kinase CK-MB (CK-2) CK-MB (CK-2) % Troponin I Total Protein Albumin Globulin Albumin/Globulin Ratio Triglycerides Cholesterol LDL Cholesterol Direct HDL Cholesterol Procalcitonin Arterial Blood Potassium 5.2 Venous Blood Potassium 5.3 H Urine Opiates Screen Urine Methadone Screen Acetaminophen Ur Barbiturates Screen Ur Phencyclidine Scrn Ur Amphetamines Screen U Benzodiazepines Scrn U Oth Cocaine Metabols U Cannabinoids Screen Alcohol, Quantitative Hepatitis A IgM Ab Hep Bs Antigen Hep B Core IgM Ab Hepatitis C Antibody Ur L.pneumophila Ag Blood Type A POSITIVE Antibody Screen Negative Crossmatch See Detail BBK History Checked Patient has bt 05/03/17 05/03/17 05/03/17 14:50 15:36 16:24 WBC RBC Hgb Hct MCV MCH MCHC RDW Plt Count MPV Gran % Lymph % (Auto) Bowman % (Auto) Eos % (Auto) Baso % (Auto) Gran # Lymph # Bowman # Eos # Baso # Neutrophils % (Manual) Band Neutrophils % Lymphocytes % (Manual) Monocytes % (Manual) Platelet Evaluation Hypochromasia Anisocytosis (manual) PT 15.2 H INR 1.41 H APTT 29.6 pCO2 48 H pO2 54.0 L 53 HCO3 8.4 L* ABG pH 6.85 L* ABG Total CO2 9.9 L ABG O2 Saturation 79.2 L ABG O2 Content ABG Base Excess -23.5 L ABG Hemoglobin ABG Carboxyhemoglobin POC ABG HHb (Measured) ABG Methemoglobin ABG O2 Capacity ABG Potassium 5.4 H VBG pH 6.86 L* VBG pCO2 56.0 VBG HCO3 10.0 L VBG Total CO2 11.7 L VBG O2 Sat (Calc) 76.6 H VBG Base Excess -23.9 L VBG Potassium 5.6 H Hgb O2 Saturation Sodium 136.0 137.0 Chloride 109.0 H 103.0 Glucose 306 H 323 H Lactate 12.7 H* 15.9 H* Mechanical Rate 20 FiO2 100.0 21.0 Tidal Volume 500 PEEP 5 Potassium Carbon Dioxide Anion Gap BUN Creatinine Est GFR ( Amer) Est GFR (Non-Af Amer) Random Glucose Calcium Phosphorus Magnesium Total Bilirubin Direct Bilirubin AST ALT Alkaline Phosphatase Lactate Dehydrogenase Total Creatine Kinase CK-MB (CK-2) CK-MB (CK-2) % Troponin I Total Protein Albumin Globulin Albumin/Globulin Ratio Triglycerides Cholesterol LDL Cholesterol Direct HDL Cholesterol Procalcitonin Arterial Blood Potassium 5.4 H Venous Blood Potassium 5.6 H Urine Opiates Screen Urine Methadone Screen Acetaminophen Ur Barbiturates Screen Ur Phencyclidine Scrn Ur Amphetamines Screen U Benzodiazepines Scrn U Oth Cocaine Metabols U Cannabinoids Screen Alcohol, Quantitative Hepatitis A IgM Ab Hep Bs Antigen Hep B Core IgM Ab Hepatitis C Antibody Ur L.pneumophila Ag Blood Type Antibody Screen Crossmatch BBK History Checked Attending/Attestation - Attestation I have personally seen and examined this patient.: Yes I have fully participated in the care of the patient.: Yes I have reviewed all pertinent clinical information: Yes Notes (Text): 05/03/17 16:54 I have seen and examined patient with GI fellow and medical claims processor. Agree with above documentation with the following additions. In brief, this is a 71 year old male with history of HTN, hyperlipidemia, CHF, GA s/p stent on plavix, PVD, ischemic colitis who was admitted to hospital with complaint of progressive dyspnea for the past one day. GI called for evaluation of abdominal pain and elevated LFTs. Patient describes intermittent RUQ abdominal pain, non-radiating, worse following movement. His current hospital course has become complicated by the diagnosis of liver lesions suspected to be metastatic along with a pulmonary mass, s/p IR guided liver biopsy. Subsequently hours later he was found to be hypotensive and was transferred to ICU critical care for further evaluation. Since then, he has been intubated for airway protection , started on vasopressor therapy, and suffered cardiac arrest. It was noted that his hemoglobin had dropped substantially from prior lab evaluation. HTN Hyperlipidemia CHF / GA s/p plavix PVD, history of ischemic colitis Progressive dyspnea, pneumonia Pulmonary and liver lesions s/p IR guided liver biopsy complicated with subsequent shock, suspected hemobilia given clinical scenario, acute cardiac arrest posing threat to patient life Coagulopathy, ?DIC - Continue with antibiotic therapy as per ID - Vasopressor and ventilator management as per critical care team - Patient has already received multiple PRBC transfusions and FFP, continue to monitor H/H and transfuse as necessary - Given ongoing hemodynamic compromise, at this point would suggest urgent angiography with potential embolization for treatment of suspected hemobilia - Follow up oncology recommendations - Overall patient prognosis is quite poor given recent events with suspected metastatic disease burden. Will continue to monitor patient clinical course.
--- NOTE | 2017-05-03 07:55 | CON ---
DATE: 05/02/2017 REASON FOR CONSULTATION: The patient is in bed, in no acute distress. The patient was seen in room 268. The patient has mild shortness of breath and cough since several days and abdominal pain on and off since several days. HISTORY OF PRESENT ILLNESS: This is a 71-year-old male known to me from previous admission who has end-stage lung fibrosis, end-stage chronic obstructive lung disease, coronary artery disease, high cholesterol, cardiac arrhythmias, congestive heart failure, and history of renal disease, who was admitted with low-grade fevers at home and shortness of breath and cough and cough is nonproductive and he had abdominal pain and epigastric pain, which is resolved at this time. The patient has no diarrhea or constipation. REVIEW OF SYSTEMS: Reveals no dysuria or frequency. No headaches. No blurred vision. No rash. No new joint pain. PAST MEDICAL HISTORY: Significant for lung fibrosis, coronary artery disease, end-stage COPD, high cholesterol, arrhythmia, congestive heart failure, and renal disease. PAST SURGICAL HISTORY: Cataract surgery and hiatal hernia. ALLERGIES: THE PATIENT HAS NO KNOWN ALLERGIES. MEDICATIONS AT HOME: Include the patient to be on tramadol, statin, Zantac, metoprolol, Zestril, Lasix, inhaler, and Plavix. PHYSICAL EXAMINATION: VITAL SIGNS: The patient is in bed with temperature of 98 with heart rate of 104, respiratory rate of 20, and blood pressure is 130/70. The patient is saturating at 96%. HEENT: Unremarkable. NECK: Supple. LUNGS: Decreased breath sounds. HEART: Normal S1 and S2. ABDOMEN: Soft and nontender. No rebound. No guarding. LABORATORY DATA: Reveals a white count of 14,400, hemoglobin of 10, and platelets of 46 with 84% granulocytosis and chemistry reveals BUN of 20 and creatinine of 1.3. Glucose or 138, AST is 284, ALT of 78, and alkaline phosphatase is 163. The LDH is 5906 with BNP of 970. Urinalysis is noted with trace of protein and microbiology is pending. Microbiology from previous admission is reviewed. All blood cultures have been negative in the past. Urine cultures have been negative in the past and chest x-ray shows an infiltrate. History and physical examination by Dr. Valderrama is reviewed. Emergency room chart written by Dr. Lucio is also reviewed. EKG shows QTc of 474 and progress note is also reviewed. ASSESSMENT AND PLAN: This is a 71-year-old with lung fibrosis, coronary artery disease, end-stage chronic obstructive pulmonary disease, high cholesterol, arrhythmia, congestive heart failure, renal disease with leukocytosis, tachycardia, infiltrate, sepsis with community-acquired pneumonia with pulmonary fibrosis. We will treat the patient with meropenem, doxycycline, and Mepron. In addition to the meropenem, doxycycline due to a very high LDH is concerning. We will check on the blood cultures, urine cultures, CAT scan of the chest, CAT scan of the abdomen, procalcitonin, urine for Legionella antigen, hepatitis profile, and ultrasound and we will make further recommendations. We will follow with you. Tahir Jimenez MD
--- NOTE | 2017-05-03 09:06 | CT ---
PROCEDURE: CT Chest, Abdomen and Pelvis without intravenous contrast HISTORY: PNA vs COPD exac vs CHF exac vs other infiltrates COMPARISON: None. TECHNIQUE: Radiation dose: Total exam DLP = 738 mGy-cm. This CT exam was performed using one or more of the following dose reduction techniques: Automated exposure control, adjustment of the mA and/or kV according to patient size, and/or use of iterative reconstruction technique. FINDINGS: CT CHEST WITHOUT CONTRAST: LUNGS: In addition to the findings listed below the lungs demonstrates severe COPD with bulla formation and fibrosis. MEDIASTINUM: There is a large left hilar lung mass measuring 6.8 x 7.6 cm. There is narrowing of the left upper lobe bronchus but no evidence of endobronchial obstruction. The mass also surrounds the left main pulmonary artery. The study is limited without IV contrast. There is also extensive mediastinal adenopathy with a large anterior mediastinal node measuring 2.7 x 4 cm. There is also a pretracheal lymph node measuring 2.8 x 3.5 cm. Adjacent to the mass there is a focal area of consolidation in the left upper lobe. There are multiple air bronchograms. This probably represents secondary lung consolidation. There is a more solid-appearing lesion adjacent to the mediastinum and anterior chest wall which could represent the primary neoplastic lesion. This measures 2.8 x 4.0 cm seen on image 56. The findings were discussed with Dr. Valdivia at 8:50 a.m. LYMPH NODES: As above PLEURA: Unremarkable. No pneumothorax. No pleural fluid. BONES: Multiple compression fractures are seen in the mid and lower thoracic spine. However there is no evidence of bony destruction to suggest metastatic disease OTHER FINDINGS: None. CT ABDOMEN AND PELVIS: LIVER: The liver has a markedly heterogeneous appearance consistent with diffuse metastatic disease. The majority of the lesions measure between 1 and 2 cm in diameter. GALLBLADDER AND BILE DUCTS: Unremarkable. PANCREAS: Unremarkable. No gross lesion or ductal dilatation. SPLEEN: Unremarkable. ADRENALS: Unremarkable. No mass. KIDNEYS AND URETERS: Unremarkable. No hydronephrosis. No solid mass. VASCULATURE: The aorta is mildly dilated BOWEL: Unremarkable. No obstruction. No gross mural thickening. APPENDIX: Normal appendix. PERITONEUM: Unremarkable. No free fluid. No free air. LYMPH NODES: Unremarkable. No enlarged lymph nodes. BLADDER: Unremarkable. REPRODUCTIVE: Unremarkable. BONES: No acute fracture. OTHER FINDINGS: None. IMPRESSION: Large left hilar mass with extensive mediastinal adenopathy. There is also focal consolidation and a possible mass in the left upper lobe anteriorly. There is also metastatic disease to the liver. See comments
[2017-05-03 09:27] LABS: NEUTROPHIL 89 % (50.0-70.0)
[2017-05-03 09:28] LABS: ANISOCYTOSIS 1+; BAND 2 % (0-2); HYPOCHROMIA SLIGHT; PLATELET ESTIMATE LOW (NORMAL)
[2017-05-03] MEDS: MethylPREDNISolone 40 mg Vial IVP SCH (09:42)
[2017-05-03] MEDS: Atovaquone 750 mg/5 ml Susp UD PO SCH ×2 (09:42→19:24)
[2017-05-03] MEDS ORDERED: Fluticasone-Salmeterol 250-50mcg Diskus IH SCH (10:00)
[2017-05-03] MEDS ORDERED: levoFLOXacin 750 mg in D5W 750 MG/150 ML BAG IVPB SCH (10:00)
[2017-05-03] MEDS: Arformoterol 15 mcg/2 ml Inh Sol IH SCH ×2 (10:01→20:02)
[2017-05-03] MEDS: Budesonide 0.5 mg/2 ml Inhal Susp UD IH SCH ×2 (10:02→20:03)
[2017-05-03] MEDS: Levalbuterol 1.25 MG/3 ML Inhal Soln UD IH SCH ×4 (10:02→20:07)
[2017-05-03 10:27] LABS: ARTERIAL BLOOD GAS HCO3 17.3 mmol/L (21-28); ARTERIAL BLOOD GAS O2 CAPACITY 13.9 mL/dl (16-24); ARTERIAL BLOOD GAS O2 CONTENT 13.5 ML/dl (15-23); ARTERIAL BLOOD HGB O2 SAT 93.8 % (95.0-98.0); CARBOXYHEMOGLOBIN 2.2 % (0.5-1.5); HHB 2.6 % (0-5); METHEMOGLOBIN 1.4 % (0.0-3.0)
--- NOTE | 2017-05-03 10:33 | CP.PCM.PN ---
<Yevgeniy Valderrama - Last Filed: 05/03/17 10:51> Subjective - Date & Time of Evaluation Date of Evaluation: 05/03/17 Time of Evaluation: 10:00 - Subjective Subjective: Patient seen and examined at bedside. No acute events overnight. Patient states breathing has improved since admission. Offers no new complaints at this time. Patient denies nausea, diarrhea, diaphoresis, chest pain, palpitations, cough, difficulty urinating, frequency or dysuria. Objective - Vital Signs/Intake and Output Vital Signs (last 24 hours): Temp Pulse Resp BP Pulse Ox 98.4 F 104 H 22 144/80 92 L 05/03/17 05:32 05/03/17 09:43 05/03/17 05:32 05/03/17 09:43 05/03/17 05:32 Intake and Output: 05/03/17 05/03/17 06:59 18:59 Intake Total 770 Output Total 500 Balance 270 - Medications Medications: Current Medications Arformoterol Tartrate (Brovana) 15 mcg IH [id number] [facility] Last Admin: 05/03/17 10:01 Dose: 15 mcg Atovaquone (Mepron) 750 mg PO BID [facility] Stop: 05/11/17 19:26 Last Admin: 05/03/17 09:42 Dose: 750 mg Budesonide (Pulmicort Respules) 0.5 mg IH [id number] [facility] Last Admin: 05/03/17 10:02 Dose: 0.5 mg Cholecalciferol (Vitamin D) 2,000 iu PO DAILY [facility] Last Admin: 05/03/17 09:42 Dose: 2,000 iu Famotidine (Pepcid) 40 mg PO HS [facility] Last Admin: 05/02/17 21:00 Dose: 40 mg Furosemide (Lasix) 20 mg PO DAILY [facility] Last Admin: 05/03/17 09:42 Dose: 20 mg Doxycycline Hyclate 100 mg/ (Sodium Chloride) 100 mls @ 100 mls/hr IVPB Q12 AAYUSH PRN Reason: Protocol Stop: 05/11/17 22:01 Last Admin: 05/03/17 09:43 Dose: 100 mls/hr Meropenem 1g/NS 100mL IVPB (Meropenem 1g/Ns 100ml Ivpb) 1 gm in 100 mls @ 100 mls/hr IVPB Q8 AAYUSH PRN Reason: Protocol Stop: 05/11/17 22:01 Last Admin: 05/03/17 05:00 Dose: 100 mls/hr Sodium Chloride (Sodium Chloride 0.9%) 1,000 mls @ 50 mls/hr IV .Q20H [facility] Last Admin: 05/02/17 22:17 Dose: 50 mls/hr Levalbuterol HCl (Xopenex) 1.25 mg IH [id number] [facility] Last Admin: 05/03/17 10:02 Dose: 1.25 mg Lisinopril (Zestril) 10 mg PO QAM [facility] Last Admin: 05/03/17 09:43 Dose: 10 mg Methylprednisolone (Solu-Medrol) 40 mg IVP Q12 [facility] Last Admin: 05/03/17 09:42 Dose: 40 mg Metoprolol Tartrate (Lopressor) 25 mg PO BID [facility] Last Admin: 05/03/17 09:43 Dose: 25 mg Tramadol HCl (Ultram) 50 mg PO Q4H PRN PRN Reason: Pain, moderate (4-7) Last Admin: 05/03/17 03:16 Dose: 50 mg - Labs Labs: 05/03/17 06:30 05/03/17 06:30 PT 12.0 Seconds (9.9-11.8) H 05/02/17 10:41 INR 1.11 (0.93-1.08) H 05/02/17 10:41 APTT 25.4 Seconds (23.7-30.8) 05/02/17 10:41 - Additional Findings Additional findings: General: NAD Head: Atraumatic, Normocephalic Eyes: EOMI, non-iceteric Heart: +S1 +S2, RRR Lungs: mild wheezing left lower lung quadrant, bibasilar inspiratory rhonchi Abdomen: soft, NTTP, + BS in 4 quadrants Neuro: awake, alerts, responds to verbal stimuli, answers questions appropriately, follows commands, moves extremities past midline Extremities: no clubbing, no cyanosis, no edema MSK: thoracic kyphosis noted Psych: normal mood, normal affect Skin: ecchymosis noted in the left upper extremity Assessment and Plan - Assessment and Plan (Free Text) Assessment: Patient is a 71 yo male with PMH of emphysema, CHF, previous ID s/p 2 cardiac stents, osteoporosis, arthritis, HTN, HLD, GERD and colitis is being admitted for evaluation and treatment of sepsis likely secondary to pneumonia. Abnormal CT Lung Abdomen Pelvis Finding details- lung mass noted, heterogeneous densities noted in the liver - consult placed for IR- Dr. Julian Villavicencio for Lung and Liver biopsy, appreciate recs - consult placed for heme-onc Dr. Reed for potential lung cancer, appreciate recs - consult placed for pulm- Dr. Valdivia, appreciate recs - results reviewed with patient and Sepsis, Healthcare-Associated Pneumonia details- patient is tachycardic 104s, WBC 12, lactate 5.6 to 6.0, meets SIRS criteria and has source details- was given one dose of cefepime and levaquin in ED, was given 2380cc of NS bolus and 40 IV lasix in ED details- CXR on admission reviewed- shows focal consolidation of left hilar region suspcious for pneumonia, patient was in hospital in January, likely healthcare-associated pneumonia - ID consult for Dr. Jimenez for antibiotic recs - continue atovaquone as per ID - continue IVF - blood cultures pending - Influenza swab pending - Legionella urine antigen pending - MRSA nasal swab pending - procalcitonin pending - pneumoccoal vaccination Acute on Chronic Emphysema Exacerbation, Dyspnea - xopenex - Solumedrol 40 IV q12 Acute Exacerbation of CHF Details- BNP on admission is 970 Details- ECHO from 12/15/16 reviewed shows EF of 40% - Continue Furosemide 20 mg once daily - Heart healthy diet - Strict I/Os - Daily weight Transaminitis, Hyperbilirubinemia - abdominal ultrasound read pendiing - hepatitis panel pending - will monitor closely via daily CMP - continue to hold statin - GI consult for RUQ tenderness, vomiting, transaminitis, hyperbilirubinemia in the setting of acute thrombocytopenia Thrombocytopenia Details- platelet count was 45 (364 on 12/16/16), likely secondary to liver mets - await heme-onc recs Deconditioned State - PT evaluation and treatment - OT evaluation and treatment History of ID details- 2 stents placed (2008) - hold Plavix 75 mg once daily and Aspirin 81 mg once daily due to thrombocytopenia History of HTN Continue Metoprolol Tartrate 25 mg BID, Lisinopril 10 mg once daily History of HLD - hold Simvastatin 40 mg once daily due to elevated LFTs on admission History of Osteoporosis - Continue Vitamin D 2000 mg once daily History of Arthritis - Continue Tramadol 1 tablet/day History of GERD/ Colitis - Continue Ranitidine 300 mg once daily - Continue Linzess PRN PPX - Ranitidine and SCD Patient case seen, discussed with, and approved by attending physician, Dr. Dixon <Steven Dixon - Last Filed: 06/01/17 08:01> Objective - Vital Signs/Intake and Output Vital Signs (last 24 hours): Temp Pulse Resp BP Pulse Ox 97.9 F 44 L 19 60/40 L 66 L 05/03/17 13:24 05/05/17 03:46 05/05/17 03:46 05/05/17 02:47 05/05/17 03:40 - Labs Labs: 05/04/17 15:30 05/04/17 15:30 PT 16.2 Seconds (9.9-11.8) H 05/03/17 18:18 INR 1.50 (0.93-1.08) H 05/03/17 18:18 APTT 47.4 Seconds (23.7-30.8) H 05/03/17 18:18 Attending/Attestation - Attestation I have personally seen and examined this patient.: Yes I have fully participated in the care of the patient.: Yes I have reviewed all pertinent clinical information, including history, physical exam and plan: Yes Notes (Text): 06/01/17 08:00 Medical record note made by the resident after discussion with my direction and input after patient personally seen and examined by me. The chart accurately reflects my history, physical, data review and plan.
[2017-05-03] MEDS ORDERED: Midazolam 2 MG/2 ML VIAL ONE (12:00)
[2017-05-03] MEDS ORDERED: Oxycodone/Acetaminophen 5/325 mg Tab PO PRN (12:42)
[2017-05-03 13:06] VITALS: TEMP 97.9
[2017-05-03] MEDS ORDERED: Sodium Chloride 0.9% 1,000 ML IV STA (14:43)
[2017-05-03 14:45] LABS: BASO # 0.04 K/mm3 (0.0-2.0); BASO % 0.3 % (0.0-3.0); EOS % 0.3 % (1.5-5.0); GRAN # 13.52 (1.4-6.5); GRAN % 87.1 % (50.0-68.0); LYMPH # 1.1 (1.2-3.4); LYMPH % 7.3 % (22.0-35.0); MEAN CELL VOLUME 95.6 fl (80.0-105.0); MEAN CORPUSCULAR HEMOGLOBIN 32.3 pg (25.0-35.0); MEAN CORPUSCULAR HGB CONC 33.8 g/dl (31.0-37.0); MEAN PLATELET VOLUME 10.6 fl (7.0-11.0); MONO # 0.8 (0.1-0.6); RED CELL DISTRIBUTION WIDTH 13.9 % (11.5-14.5); WHITE BLOOD COUNT 15.5 10^3/ul (4.5-11.0)
[2017-05-03 14:49] LABS: ARTERIAL BLOOD GAS PH 7.25 (7.35-7.45)
[2017-05-03 14:51] LABS: HEMATOCRIT 21.6 % (42.0-52.0)
--- NOTE | 2017-05-03 14:52 | RAD ---
HISTORY: hypoxemia COMPARISON: CT chest performed the same day FINDINGS: LUNGS: There is diffuse interstitial thickening in the lungs. There is a large left perihilar and infrahilar mass. There are low lung volumes PLEURA: No significant pleural effusion identified, no pneumothorax apparent. CARDIOVASCULAR: Normal. OSSEOUS STRUCTURES: No significant abnormalities. VISUALIZED UPPER ABDOMEN: Normal. OTHER FINDINGS: None. IMPRESSION: 1. Redemonstration of large left perihilar and infrahilar mass. 2. Diffuse interstitial fibrosis.
[2017-05-03 14:53] LABS: ALB/GLOB RATIO 1.2 (1.1-1.8); CALCIUM 9.2 mg/dL (8.4-10.5); MAGNESIUM 1.9 mg/dL (1.7-2.2); PHOSPHOROUS 4.9 mg/dL (2.5-4.5); POTASSIUM 5.3 mmol/L (3.6-5.0); TOTAL PROTEIN 4.9 g/dL (5.8-8.3)
[2017-05-03 14:54] LABS: VENOUS BLOOD GAS BASE EXCESS -13.7 mmol/L (0.0-2.0); VENOUS BLOOD PH 7.27 (7.32-7.43)
[2017-05-03 15:04] LABS: TROPONIN I 0.04 ng/mL
--- NOTE | 2017-05-03 15:14 | PCM.RRTMUL ---
SITE SUPERVISING TECHNICAL OPERATOR Nurse Assessment - Situation Date: 05/03/17 Time SITE SUPERVISING TECHNICAL OPERATOR was called: 14:05 SITE SUPERVISING TECHNICAL OPERATOR Responder Arrival Time:: 14:07 Location:: [address] [place] [address] Room Number:: [id number] SITE SUPERVISING TECHNICAL OPERATOR Reason for Call: Hypotension, O2 Saturation below 90%, Looks Sicker SITE SUPERVISING TECHNICAL OPERATOR Called By: RN - IV IV Inserted during SITE SUPERVISING TECHNICAL OPERATOR?: No IV Fluids Initiated During SITE SUPERVISING TECHNICAL OPERATOR?: 0.9ns 1L Bolus - Respiratory Oxygen Delivery Method: Non Rebreather @% Oxygen Flow Rate: 100 Received Nebulizer Treatments:: Yes Was the Patient Ventilated with Bag/Mask 100% O2?: No Secretions Suctioned?: No Was the Patient Intubated?: No Was the Patient Placed on a Ventilator?: No - Ventilator Settings SAO2 %:: 97 - Medication Medications Administered During SITE SUPERVISING TECHNICAL OPERATOR :: none - Diagnostic Test Ordered EKG:: Yes Chest X-Ray:: Yes - Stat Labs Ordered SITE SUPERVISING TECHNICAL OPERATOR Stat Labs Ordered:: CBC, BMP (cmp, magnesium, phosphorus), TROPONIN, LACTIC ACID, ABG CPR started during SITE SUPERVISING TECHNICAL OPERATOR?: No - Vital Signs Temperature: 97.8 F Pulse Rate: 80 Respiratory Rate: 30 Blood Pressure: 60/27 Oxygen Saturation: 100 - Finger Stick Blood Glucose Finger Stick Blood Glucose: 262 - Alphonse Coma Scale Coma Scale Eye Opening:: Spontaneous Coma Scale Motor:: Obeys Commands Movement Coma Scale Verbal:: Oriented Coma Scale Total:: 15 - Sepsis Screen Part 1 Sepsis Screen Part 1: Hypotensive - Sepsis Screen Part 2 Sepsis Screen Part 2: Platelets under 80,000 - Time SITE SUPERVISING TECHNICAL OPERATOR Ended Time SITE SUPERVISING TECHNICAL OPERATOR Ended:: 03:10 - Vital Signs at end of SITE SUPERVISING TECHNICAL OPERATOR Blood Pressure:: 84/57 Pulse Rate:: 84 Respiratory Rate:: 22 Temperature:: 97.6 F O2 Sat by Pulse Oximetry:: 96 - Recommendations 5) SITE SUPERVISING TECHNICAL OPERATOR Level of Care Recommendations: Transfer to ICU 6) Notifications: Attending Physician, Family or Designated Caregiver - A) Initial Vital Signs: Temperature: 97.8 F Pulse Rate: 80 Respiratory Rate: 30 Oxygen Saturation: 100 Finger Stick Blood Glucose: 262 - C) Respiratory Oxygen Delivery Method: Non Rebreather @% Oxygen Flow Rate: 100
[2017-05-03] MEDS ORDERED: NOREPINEPHRINE BIT/0.9 % NACL 4 MG/250 ML BAG IV ONE (15:29)
[2017-05-03 15:38] LABS: ABG MECHANICAL RATE 20; ATERIAL BLOOD GAS PEEP 5
[2017-05-03] MEDS ORDERED: Sodium Bicarbonate (8.4%) 50 Meq Syringe IVP ONE ×4 (15:39→16:41)
[2017-05-03 15:40] LABS: ARTERIAL BLOOD GAS PH 6.85 (7.35-7.45)
[2017-05-03 15:41] LABS: ARTERIAL BLOOD GAS HCO3 8.4 mmol/L (21-28)
[2017-05-03 15:41] LABS: INR 1.41 (0.93-1.08); PARTIAL THROMBOPLASTIN TIME 29.6 Seconds (23.7-30.8)
--- NOTE | 2017-05-03 16:13 | RAD ---
HISTORY: s/p intubate COMPARISON: Earlier same day FINDINGS: LUNGS: The endotracheal tube is in satisfactory position. There is COPD with pulmonary fibrosis PLEURA: No significant pleural effusion identified, no pneumothorax apparent. CARDIOVASCULAR: Normal. OSSEOUS STRUCTURES: No significant abnormalities. VISUALIZED UPPER ABDOMEN: Normal. OTHER FINDINGS: None. IMPRESSION: Endotracheal tube in satisfactory position
[2017-05-03 16:27] LABS: VENOUS BLOOD GAS BASE EXCESS -23.9 mmol/L (0.0-2.0)
[2017-05-03 16:35] LABS: VENOUS BLOOD PH 6.86 (7.32-7.43)
--- NOTE | 2017-05-03 16:36 | PCM.PROC ---
Procedures Attestation:: I certify that I have explained the specified Operation(s) or Procedure(s), risks, benefits and reasonable alternatives to the Patient and/or other person responsible. The opportunity was given to ask questions and all questions answered - Intubation Time Out Performed: Yes Sedative: None Laryngoscope: Janet ET Tube Size: 7.0 ET Tube Uncuffed: Yes ET Tube Secured at Depth: 24 ET Tube Secured Locarion: Lips ET Tube Placement Confirmation: Visualized Passing Through Cords, Breath Sounds Equal Bilaterally, No Breath Sounds Over Epigastrum, Confirmation w/Capnometry Patient Tolerated Procedure: Well Procedure Immediate Complications: None Additional comments: Confirmed ET tube above desi with STAT CXR
[2017-05-03] MEDS ORDERED: Propofol 10 mg/ml 1,000 MG/100 ML VIAL ONE (16:41)
--- NOTE | 2017-05-03 17:33 | PN ---
DATE: 05/03/2017 SUBJECTIVE: The patient is seen in room 268, bed 2. No fevers and no chills. PHYSICAL EXAMINATION VITAL SIGNS: Temperature is 98, blood pressure is 106/60, respiratory rate of 22. HEENT: Unremarkable. NECK: Supple. LUNGS: Decreased breath sounds. HEART: Normal S1 and S2. ABDOMEN: Soft, nontender. No organomegaly. No rebound. No guarding. No masses. LABORATORY DATA: Reveals a white count of 12,800, hemoglobin of 10, platelets of 45 and BUN of 20, creatinine of 1.3, procalcitonin is 0.3. Urinalysis is noted and blood cultures, no growth. ASSESSMENT AND PLAN: A 71-year-old male with end-stage lung fibrosis and end-stage chronic obstructive lung disease, coronary artery disease, high cholesterol, cardiac arrhythmia, congestive heart failure, history of renal disease and he was admitted having shortness of breath and cough, and admitted with sepsis with leukocytosis, tachycardia, infiltrate and community-acquired pneumonia, source of the sepsis with pulmonary fibrosis, currently on meropenem, doxycycline, and Mepron. The patient this morning is much better. The patient had a CAT scan of the chest, abdomen and pelvis which revealed liver with metastatic disease, 1 to 2 cm in diameter and severe COPD with bulla formation and fibrosis. The patient with a large left hilar mass with extensive mediastinal adenopathy, focal consolidation, possible mass in the left upper lobe anteriorly, metastatic disease to the liver. I will continue the present course. Of note, the patient had a CAT scan in 09/2015, CAT scan of the chest which is reported as peripheral interstitial lung disease, showing minimal progression and also had a CAT scan of the abdomen and pelvis in 08/2015 which had an unremarkable liver and lower thorax unremarkable. Currently, the culture results are pending. We will make further recommendations upon availability of final blood cultures, thus far no growth and the patient for a CAT scan directed liver biopsy today, on doxycycline, Mepron, meropenem. We will follow with you. The patient's procalcitonin is 0.30 with an LDH of 5735. Overall prognosis is poor. Tahir Jimenez MD
--- NOTE | 2017-05-03 17:38 | CARD ---
APPROVED REPORT EKG Measurement Heart [id number] VT [id number] <Conclusion> Sinus rhythm with occasional premature ventricular complexes Left axis deviation Inferior infarct, age undetermined Abnormal ECG
--- NOTE | 2017-05-03 17:39 | CP.PCM.PN ---
Subjective - Date & Time of Evaluation Date of Evaluation: 05/03/17 Time of Evaluation: 14:10 - Subjective Subjective: Eleazar Arreguin D.O. PGY-2, D.O. 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 Responded at bedside. 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 Villavicencio today, who per nurse continued to complain of shortness of breath and chest discomfort since returning from OR. Patient was seen and examined a bedside. Patient was notably short of breath and was started on a non- rebreather at 15L. Breath sounds were decreased throughout with some crackles. No abdominal tenderness was noted nor was there any drainage from the liver biopsy site. Manual blood pressure was done and was 70s systolic. Fluids that were running were hung freely for about a total of 150ml while STAT labs, CXR, EKG were performed. EKG showed no acute changes, LAD, NSR, no ST-T wave changes. CXR was done and showed no interval change but did continue to show increased vasculature so fluids were stopped. Patient was notably pale including his conjunctiva. Patient on repeat BP reads improved somewhat to 80s- 90s systolic but patient continued to be more restless and tachypneic. STAT ICU eval was requested and Dr. Ybarra evaluated at bedside. CBC showed acute blood loss, last Hgb 10.3 repeat was 7.3. 2U of PRBCs emergency release were ordered per his request and patient was transferred to the ICU. Case was discussed with ICU team. Attending physician Dr. Dixon and Dr. Villavicencio IR. Objective - Vital Signs/Intake and Output Vital Signs (last 24 hours): Temp Pulse Resp BP Pulse Ox 97.9 F 85 23 106/63 80 L 05/03/17 13:24 05/03/17 13:24 05/03/17 15:54 05/03/17 13:24 05/03/17 15:54 Intake and Output: 05/03/17 05/03/17 06:59 18:59 Intake Total 770 100 Output Total 500 Balance 270 100 - Medications Medications: Current Medications Acetaminophen (Tylenol 325mg Tab) 650 mg PO Q4 PRN PRN Reason: Pain, Mild (1-3) Arformoterol Tartrate (Brovana) 15 mcg IH [id number] [facility] Last Admin: 05/03/17 10:01 Dose: 15 mcg Atovaquone (Mepron) 750 mg PO BID [facility] Stop: 05/11/17 19:26 Last Admin: 05/03/17 09:42 Dose: 750 mg Budesonide (Pulmicort Respules) 0.5 mg IH [id number] [facility] Last Admin: 05/03/17 10:02 Dose: 0.5 mg Cholecalciferol (Vitamin D) 2,000 iu PO DAILY [facility] Last Admin: 05/03/17 09:42 Dose: 2,000 iu Famotidine (Pepcid) 40 mg PO HS [facility] Last Admin: 05/02/17 21:00 Dose: 40 mg Furosemide (Lasix) 20 mg PO DAILY [facility] Last Admin: 05/03/17 09:42 Dose: 20 mg Doxycycline Hyclate 100 mg/ (Sodium Chloride) 100 mls @ 100 mls/hr IVPB Q12 [facility]AY[facility] PRN Reason: Protocol Stop: 05/11/17 22:01 Last Admin: 05/03/17 09:43 Dose: 100 mls/hr Meropenem 1g/NS 100mL IVPB (Meropenem 1g/Ns 100ml Ivpb) 1 gm in 100 mls @ 100 mls/hr IVPB Q8 [facility] PRN Reason: Protocol Stop: 05/11/17 22:01 Last Admin: 05/03/17 05:00 Dose: 100 mls/hr Sodium Chloride (Sodium Chloride 0.9%) 1,000 mls @ 50 mls/hr IV .Q20H [facility] Last Admin: 05/02/17 22:17 Dose: 50 mls/hr Propofol (Diprivan) 1,000 mg in 100 mls @ 3.443 mls/hr IV .Q24H PRN; Protocol; 5 MCG/KG/MIN PRN Reason: TITRATE PER MD ORDER Phenylephrine HCl 40 mg/ (Sodium Chloride) 254 mls @ 38.1 mls/hr IV .Q6H40M PRN ; Protocol; 100 MCG/MIN PRN Reason: TITRATE PER MD ORDER Levalbuterol HCl (Xopenex) 1.25 mg IH [id number] [facility] Last Admin: 05/03/17 14:26 Dose: 1.25 mg Lisinopril (Zestril) 10 mg PO QAM [facility] Last Admin: 05/03/17 09:43 Dose: 10 mg Methylprednisolone (Solu-Medrol) 40 mg IVP Q12 [facility] Last Admin: 05/03/17 09:42 Dose: 40 mg Metoprolol Tartrate (Lopressor) 25 mg PO BID [facility] Last Admin: 05/03/17 09:43 Dose: 25 mg Oxycodone/Acetaminophen (Percocet 5/325 Mg Tab) 1 tab PO Q4H PRN PRN Reason: Pain, moderate (4-7) Stop: 05/06/17 12:43 Tramadol HCl (Ultram) 50 mg PO Q4H PRN PRN Reason: Pain, moderate (4-7) Last Admin: 05/03/17 03:16 Dose: 50 mg - Labs Labs: 05/03/17 14:35 05/03/17 14:35 PT 15.2 Seconds (9.9-11.8) H 05/03/17 14:50 INR 1.41 (0.93-1.08) H 05/03/17 14:50 APTT 29.6 Seconds (23.7-30.8) 05/03/17 14:50
[2017-05-03 17:54] LABS: BASO # 0.23 K/mm3 (0.0-2.0); BASO % 1.1 % (0.0-3.0); EOS # 0.2 (0.0-0.7); EOS % 0.9 % (1.5-5.0); GRAN # 17.37 (1.4-6.5); GRAN % 80.8 % (50.0-68.0); HEMATOCRIT 29.9 % (42.0-52.0); LYMPH # 2.6 (1.2-3.4); MEAN CELL VOLUME 95.2 fl (80.0-105.0); MEAN CORPUSCULAR HEMOGLOBIN 30.6 pg (25.0-35.0); MEAN CORPUSCULAR HGB CONC 32.1 g/dl (31.0-37.0); MEAN PLATELET VOLUME 9.9 fl (7.0-11.0); MONO # 1.1 (0.1-0.6); MONO % 5.2 % (1.0-6.0); PLATELET COUNT 82 10^3/uL (120.0-450.0)
[2017-05-03 17:58] LABS: WHITE BLOOD COUNT 21.5 10^3/ul (4.5-11.0)
--- NOTE | 2017-05-03 18:05 | CP.PCM.CON ---
<KISHA CRESPO - Last Filed: 05/03/17 18:10> History of Present Illness - History of Present Illness History of Present Illness: CRITICAL CARE CONSULT NOTE: HPI: Mr. Dean is a 71 year old male with a past medical history significant for emphysema, CHF (last EF at 40%), previous DC with 2 stents placed (2008), osteoporosis, arthritis, HTN, HLD, GERD, and colitis presented to the ICU after becoming hemodynamically unstable after having undergone a CT guided liver biopsy with Dr. Villavicencio earlier today. Patient complained of shortness of breath and chest discomfort since returning from OR. Patient was started on non- rebreather at 15L and, after initially starting IVF support, fluids were stopped due to vascular congestion per chest x-ray. EKG showed no acute changes , LAD, NSR, no ST-T wave changes. A CBC showed patient to have a hematocrit of 7.3, after previously having a hemoglobin of 10.3. Patient was then transferred to the ICU with two units of emergently released pRBC's. PMH: Emphysema, CHF, previous DC with 2 stents placed (2008), Osteoporosis, Arthritis, HTN, HLD, GERD, Colitis PSH: 2 cardiac stents (2008) Social: Cigarettes: Quit 10-15 years ago; 25 pack years 2ppd. Alcohol: Denies. Illicit Drugs: Denies Family: Mother Stroke, Father Arthritis Allergies: NKA Medications: As per NOV PMD: Dr. Zarate Review of Systems - Review of Systems Review of Systems: ROS unobtainable due to clinical condition of patient Past Patient History - Infectious Disease Hx of Infectious Diseases: None - Past Social History Smoking Status: Former Smoker - CARDIAC Hx Cardiac Disorders: Yes Hx Cardia Arrhythmia: Yes Hx Congestive Heart Failure: Yes Hx Hypercholesterolemia: Yes Hx Hypertension: Yes Hx Pacemaker: No Hx Peripheral Edema: Yes (+1 pitting ble) - PULMONARY Hx Respiratory Disorders: Yes (chronic cough) Hx Chronic Obstructive Pulmonary Disease (COPD): Yes - NEUROLOGICAL Hx Neurological Disorder: No Hx Alzheimer's Disease: No HX Cerebrovascular Accident: No Hx Dementia: No Hx Dizziness: No Hx Meningitis: No Hx Migraine: No Hx Parkinson's Disease: No Hx Seizures: No Hx Transient Ischemic Attacks (TIA): No - HEENT Hx Cataracts: Yes (surgery b/l) - RENAL Hx Chronic Kidney Disease: Yes - ENDOCRINE/METABOLIC Hx Endocrine Disorders: No - HEMATOLOGICAL/ONCOLOGICAL Hx Blood Disorders: (blood transfusion from ischemic colitis) - INTEGUMENTARY Hx Dermatological Problems: No Hx Basil Cell: No Hx Eczema: No Hx Melanoma: No Hx Psoriasis: No Hx Squamous Cell: No Other/Comment: multiple skin discolorations b/l arms - MUSCULOSKELETAL/RHEUMATOLOGICAL Hx Falls: No - GASTROINTESTINAL Other/Comment: ischemic colitis, colon polyp removed, hiatal hernia - PSYCHIATRIC Hx Substance Use: No - SURGICAL HISTORY Hx Surgeries: Yes Hx Cardiac Catheterization: Yes Hx Coronary Stent: Yes - ANESTHESIA Hx Anesthesia Reactions: Yes (HYPOTENSIVE AT END OF PROCEDURE IN THE PAST) Hx Malignant Hyperthermia: No Meds Allergies/Adverse Reactions: Allergies Allergy/AdvReac Type Severity Reaction Status Date / Time No Known Allergies Allergy Verified 05/02/17 10:10 - Medications Medications: Current Medications Acetaminophen (Tylenol 325mg Tab) 650 mg PO Q4 PRN PRN Reason: Pain, Mild (1-3) Arformoterol Tartrate (Brovana) 15 mcg IH [id number] [facility] Last Admin: 05/03/17 10:01 Dose: 15 mcg Atovaquone (Mepron) 750 mg PO BID [facility] Stop: 05/11/17 19:26 Last Admin: 05/03/17 09:42 Dose: 750 mg Budesonide (Pulmicort Respules) 0.5 mg IH [id number] [facility] Last Admin: 05/03/17 10:02 Dose: 0.5 mg Cholecalciferol (Vitamin D) 2,000 iu PO DAILY [facility] Last Admin: 05/03/17 09:42 Dose: 2,000 iu Famotidine (Pepcid) 40 mg PO HS [facility] Last Admin: 05/02/17 21:00 Dose: 40 mg Furosemide (Lasix) 20 mg PO DAILY [facility] Last Admin: 05/03/17 09:42 Dose: 20 mg Doxycycline Hyclate 100 mg/ (Sodium Chloride) 100 mls @ 100 mls/hr IVPB Q12 [facility] PRN Reason: Protocol Stop: 05/11/17 22:01 Last Admin: 05/03/17 09:43 Dose: 100 mls/hr Meropenem 1g/NS 100mL IVPB (Meropenem 1g/Ns 100ml Ivpb) 1 gm in 100 mls @ 100 mls/hr IVPB Q8 [facility] PRN Reason: Protocol Stop: 05/11/17 22:01 Last Admin: 05/03/17 05:00 Dose: 100 mls/hr Sodium Chloride (Sodium Chloride 0.9%) 1,000 mls @ 50 mls/hr IV .Q20H [facility] Last Admin: 05/02/17 22:17 Dose: 50 mls/hr Propofol (Diprivan) 1,000 mg in 100 mls @ 3.443 mls/hr IV .Q24H PRN; Protocol; 5 MCG/KG/MIN PRN Reason: TITRATE PER MD ORDER Phenylephrine HCl 40 mg/ (Sodium Chloride) 254 mls @ 38.1 mls/hr IV .Q6H40M PRN ; Protocol; 100 MCG/MIN PRN Reason: TITRATE PER MD ORDER Levalbuterol HCl (Xopenex) 1.25 mg IH [id number] [facility] Last Admin: 05/03/17 14:26 Dose: 1.25 mg Lisinopril (Zestril) 10 mg PO QAM [facility] Last Admin: 05/03/17 09:43 Dose: 10 mg Methylprednisolone (Solu-Medrol) 40 mg IVP Q12 [facility] Last Admin: 05/03/17 09:42 Dose: 40 mg Metoprolol Tartrate (Lopressor) 25 mg PO BID [facility] Last Admin: 05/03/17 09:43 Dose: 25 mg Oxycodone/Acetaminophen (Percocet 5/325 Mg Tab) 1 tab PO Q4H PRN PRN Reason: Pain, moderate (4-7) Stop: 05/06/17 12:43 Tramadol HCl (Ultram) 50 mg PO Q4H PRN PRN Reason: Pain, moderate (4-7) Last Admin: 05/03/17 03:16 Dose: 50 mg Physical Exam - Constitutional Appears: In Acute Distress - Head Exam Head Exam: ATRAUMATIC, NORMOCEPHALIC - Eye Exam Additional comments: Pale conjuctiva - ENT Exam ENT Exam: Mucous Membranes Dry - Respiratory Exam Respiratory Exam: Clear to Auscultation Bilateral - Cardiovascular Exam Cardiovascular Exam: Tachycardia - GI/Abdominal Exam GI & Abdominal Exam: Soft - Extremities Exam Extremities exam: Negative for: calf tenderness, pedal edema - Neurological Exam Neurological exam: Altered - Skin Skin Exam: Pallor, Pallor Additional comments: Liver biopsy insertion site with minimal oozing Results - Vital Signs Recent Vital Signs: Last Vital Signs Temp 97.9 F 05/03/17 13:24 Pulse 85 05/03/17 13:24 Resp 23 05/03/17 15:54 BP 106/63 05/03/17 13:24 Pulse Ox 80 L 05/03/17 15:54 - Labs Result Diagrams: 05/03/17 17:10 05/03/17 14:35 Labs: Laboratory Results - last 24 hr 05/02/17 05/02/17 05/02/17 18:20 18:20 18:20 WBC 14.4 H RBC 3.39 L Hgb 10.8 L Hct 31.4 L MCV 92.6 MCH 31.9 MCHC 34.4 RDW 13.3 Plt Count 46 L* MPV 10.2 Gran % 84.2 H Lymph % (Auto) 7.3 L Campbell % (Auto) 7.6 H Eos % (Auto) 0.6 L Baso % (Auto) 0.3 Gran # 12.15 H Lymph # 1.1 L Campbell # 1.1 H Eos # 0.1 Baso # 0.04 Neutrophils % (Manual) Band Neutrophils % Lymphocytes % (Manual) Monocytes % (Manual) Platelet Evaluation Hypochromasia Anisocytosis (manual) PT INR APTT pCO2 pO2 HCO3 ABG pH ABG Total CO2 ABG O2 Saturation ABG O2 Content ABG Base Excess ABG Hemoglobin ABG Carboxyhemoglobin POC ABG HHb (Measured) ABG Methemoglobin ABG O2 Capacity ABG Potassium VBG pH VBG pCO2 VBG HCO3 VBG Total CO2 VBG O2 Sat (Calc) VBG Base Excess VBG Potassium Hgb O2 Saturation Sodium Chloride Glucose Lactate Mechanical Rate FiO2 Tidal Volume PEEP Potassium Carbon Dioxide Anion Gap BUN Creatinine Est GFR ( Amer) Est GFR (Non-Af Amer) Random Glucose Calcium Phosphorus Magnesium Total Bilirubin Direct Bilirubin 0.4 AST ALT Alkaline Phosphatase Lactate Dehydrogenase Total Creatine Kinase CK-MB (CK-2) CK-MB (CK-2) % Troponin I Total Protein Albumin Globulin Albumin/Globulin Ratio Triglycerides 145 Cholesterol 98 L LDL Cholesterol Direct 39 HDL Cholesterol 39 Procalcitonin Arterial Blood Potassium Venous Blood Potassium Urine Opiates Screen Urine Methadone Screen Acetaminophen Ur Barbiturates Screen Ur Phencyclidine Scrn Ur Amphetamines Screen U Benzodiazepines Scrn U Oth Cocaine Metabols U Cannabinoids Screen Alcohol, Quantitative < 10 Hepatitis A IgM Ab Hep Bs Antigen Hep B Core IgM Ab Hepatitis C Antibody Ur L.pneumophila Ag Blood Type Antibody Screen Crossmatch BBK History Checked 05/02/17 05/02/17 05/02/17 18:20 18:20 18:20 WBC RBC Hgb Hct MCV MCH MCHC RDW Plt Count MPV Gran % Lymph % (Auto) Campbell % (Auto) Eos % (Auto) Baso % (Auto) Gran # Lymph # Campbell # Eos # Baso # Neutrophils % (Manual) Band Neutrophils % Lymphocytes % (Manual) Monocytes % (Manual) Platelet Evaluation Hypochromasia Anisocytosis (manual) PT INR APTT pCO2 pO2 HCO3 ABG pH ABG Total CO2 ABG O2 Saturation ABG O2 Content ABG Base Excess ABG Hemoglobin ABG Carboxyhemoglobin POC ABG HHb (Measured) ABG Methemoglobin ABG O2 Capacity ABG Potassium VBG pH VBG pCO2 VBG HCO3 VBG Total CO2 VBG O2 Sat (Calc) VBG Base Excess VBG Potassium Hgb O2 Saturation Sodium Chloride Glucose Lactate Mechanical Rate FiO2 Tidal Volume PEEP Potassium Carbon Dioxide Anion Gap BUN Creatinine Est GFR ( Amer) Est GFR (Non-Af Amer) Random Glucose Calcium Phosphorus Magnesium Total Bilirubin Direct Bilirubin AST ALT Alkaline Phosphatase Lactate Dehydrogenase Total Creatine Kinase CK-MB (CK-2) CK-MB (CK-2) % Troponin I Total Protein Albumin Globulin Albumin/Globulin Ratio Triglycerides Cholesterol LDL Cholesterol Direct HDL Cholesterol Procalcitonin 0.30 Arterial Blood Potassium Venous Blood Potassium Urine Opiates Screen Urine Methadone Screen Acetaminophen < 10.0 L Ur Barbiturates Screen Ur Phencyclidine Scrn Ur Amphetamines Screen U Benzodiazepines Scrn U Oth Cocaine Metabols U Cannabinoids Screen Alcohol, Quantitative Hepatitis A IgM Ab Negative Hep Bs Antigen Negative Hep B Core IgM Ab Negative Hepatitis C Antibody Negative Ur L.pneumophila Ag Blood Type Antibody Screen Crossmatch BBK History Checked 05/02/17 05/02/17 05/02/17 20:47 20:47 21:00 WBC RBC Hgb Hct MCV MCH MCHC RDW Plt Count MPV Gran % Lymph % (Auto) Campbell % (Auto) Eos % (Auto) Baso % (Auto) Gran # Lymph # Campbell # Eos # Baso # Neutrophils % (Manual) Band Neutrophils % Lymphocytes % (Manual) Monocytes % (Manual) Platelet Evaluation Hypochromasia Anisocytosis (manual) PT INR APTT pCO2 pO2 44 HCO3 ABG pH ABG Total CO2 ABG O2 Saturation ABG O2 Content ABG Base Excess ABG Hemoglobin ABG Carboxyhemoglobin POC ABG HHb (Measured) ABG Methemoglobin ABG O2 Capacity ABG Potassium VBG pH 7.36 VBG pCO2 35.0 L VBG HCO3 19.8 L VBG Total CO2 20.9 L VBG O2 Sat (Calc) 84.1 H VBG Base Excess -5.0 L VBG Potassium 4.5 Hgb O2 Saturation Sodium 135.0 Chloride 100.0 Glucose 134 H Lactate 6.5 H* Mechanical Rate FiO2 21.0 Tidal Volume PEEP Potassium Carbon Dioxide Anion Gap BUN Creatinine Est GFR ( Amer) Est GFR (Non-Af Amer) Random Glucose Calcium Phosphorus Magnesium Total Bilirubin Direct Bilirubin AST ALT Alkaline Phosphatase Lactate Dehydrogenase Total Creatine Kinase CK-MB (CK-2) CK-MB (CK-2) % Troponin I Total Protein Albumin Globulin Albumin/Globulin Ratio Triglycerides Cholesterol LDL Cholesterol Direct HDL Cholesterol Procalcitonin Arterial Blood Potassium Venous Blood Potassium 4.5 Urine Opiates Screen Negative Urine Methadone Screen Negative Acetaminophen Ur Barbiturates Screen Negative Ur Phencyclidine Scrn Negative Ur Amphetamines Screen Negative U Benzodiazepines Scrn Negative U Oth Cocaine Metabols Negative U Cannabinoids Screen Negative Alcohol, Quantitative Hepatitis A IgM Ab Hep Bs Antigen Hep B Core IgM Ab Hepatitis C Antibody Ur L.pneumophila Ag Negative Blood Type Antibody Screen Crossmatch BBK History Checked 05/03/17 05/03/17 05/03/17 00:20 06:30 06:30 WBC 12.8 H RBC 3.20 L Hgb 10.3 L Hct 29.5 L MCV 92.2 MCH 32.2 MCHC 34.9 RDW 13.7 Plt Count 45 L* MPV 10.3 Gran % 90.6 H Lymph % (Auto) 5.4 L Campbell % (Auto) 3.7 Eos % (Auto) 0.1 L Baso % (Auto) 0.2 Gran # 11.58 H Lymph # 0.7 L Campbell # 0.5 Eos # 0.0 Baso # 0.03 Neutrophils % (Manual) 89 H Band Neutrophils % 2 Lymphocytes % (Manual) 8 L Monocytes % (Manual) 1 Platelet Evaluation Low Hypochromasia Slight Anisocytosis (manual) 1+ PT INR APTT pCO2 pO2 69 H HCO3 ABG pH ABG Total CO2 ABG O2 Saturation ABG O2 Content ABG Base Excess ABG Hemoglobin ABG Carboxyhemoglobin POC ABG HHb (Measured) ABG Methemoglobin ABG O2 Capacity ABG Potassium VBG pH 7.36 VBG pCO2 30.0 L VBG HCO3 16.9 L VBG Total CO2 17.8 L VBG O2 Sat (Calc) 96.9 H VBG Base Excess -7.3 L VBG Potassium 4.8 Hgb O2 Saturation Sodium 134.0 137 Chloride 101.0 104 Glucose 153 H Lactate 6.3 H* Mechanical Rate FiO2 21.0 Tidal Volume PEEP Potassium 4.8 Carbon Dioxide 16 L Anion Gap 22 H BUN 20 Creatinine 1.3 Est GFR ( Amer) > 60 Est GFR (Non-Af Amer) 54 Random Glucose 151 H Calcium 10.1 Phosphorus 3.8 Magnesium 1.7 Total Bilirubin 1.4 H Direct Bilirubin AST 276 H ALT 76 H Alkaline Phosphatase 144 H Lactate Dehydrogenase 5735 H Total Creatine Kinase 665 H CK-MB (CK-2) 14.0 H CK-MB (CK-2) % 2.1 L Troponin I 0.04 D Total Protein 6.9 Albumin 3.9 Globulin 2.9 Albumin/Globulin Ratio 1.3 Triglycerides Cholesterol LDL Cholesterol Direct HDL Cholesterol Procalcitonin Arterial Blood Potassium Venous Blood Potassium 4.8 Urine Opiates Screen Urine Methadone Screen Acetaminophen Ur Barbiturates Screen Ur Phencyclidine Scrn Ur Amphetamines Screen U Benzodiazepines Scrn U Oth Cocaine Metabols U Cannabinoids Screen Alcohol, Quantitative Hepatitis A IgM Ab Hep Bs Antigen Hep B Core IgM Ab Hepatitis C Antibody Ur L.pneumophila Ag Blood Type Antibody Screen Crossmatch BBK History Checked 05/03/17 05/03/17 05/03/17 10:20 14:35 14:35 WBC 15.5 H D RBC 2.26 L Hgb 7.3 L D Hct 21.6 L MCV 95.6 D MCH 32.3 MCHC 33.8 RDW 13.9 Plt Count 37 L* MPV 10.6 Gran % 87.1 H Lymph % (Auto) 7.3 L Campbell % (Auto) 5.0 Eos % (Auto) 0.3 L Baso % (Auto) 0.3 Gran # 13.52 H Lymph # 1.1 L Campbell # 0.8 H Eos # 0.0 Baso # 0.04 Neutrophils % (Manual) Band Neutrophils % Lymphocytes % (Manual) Monocytes % (Manual) Platelet Evaluation Hypochromasia Anisocytosis (manual) PT INR APTT pCO2 28 L pO2 73.0 L HCO3 17.3 L ABG pH 7.40 ABG Total CO2 18.2 L ABG O2 Saturation 97.3 ABG O2 Content 13.5 L ABG Base Excess -6.4 L ABG Hemoglobin 10.2 L ABG Carboxyhemoglobin 2.2 H POC ABG HHb (Measured) 2.6 ABG Methemoglobin 1.4 ABG O2 Capacity 13.9 L ABG Potassium VBG pH VBG pCO2 VBG HCO3 VBG Total CO2 VBG O2 Sat (Calc) VBG Base Excess VBG Potassium Hgb O2 Saturation 93.8 L Sodium 136 Chloride 106 Glucose Lactate Mechanical Rate FiO2 28.0 Tidal Volume PEEP Potassium 5.3 H Carbon Dioxide 13 L Anion Gap 22 H BUN 22 H Creatinine 1.5 H Est GFR ( Amer) 56 Est GFR (Non-Af Amer) 46 Random Glucose 262 H Calcium 9.2 Phosphorus 4.9 H Magnesium 1.9 Total Bilirubin 1.0 Direct Bilirubin AST 195 H ALT 64 H Alkaline Phosphatase 92 Lactate Dehydrogenase 4217 H Total Creatine Kinase 463 H CK-MB (CK-2) 10.4 H CK-MB (CK-2) % 2.2 L Troponin I 0.04 Total Protein 4.9 L Albumin 2.7 L Globulin 2.2 Albumin/Globulin Ratio 1.2 Triglycerides Cholesterol LDL Cholesterol Direct HDL Cholesterol Procalcitonin Arterial Blood Potassium Venous Blood Potassium Urine Opiates Screen Urine Methadone Screen Acetaminophen Ur Barbiturates Screen Ur Phencyclidine Scrn Ur Amphetamines Screen U Benzodiazepines Scrn U Oth Cocaine Metabols U Cannabinoids Screen Alcohol, Quantitative Hepatitis A IgM Ab Hep Bs Antigen Hep B Core IgM Ab Hepatitis C Antibody Ur L.pneumophila Ag Blood Type Antibody Screen Crossmatch BBK History Checked 05/03/17 05/03/17 05/03/17 14:35 14:40 14:47 WBC RBC Hgb Hct MCV MCH MCHC RDW Plt Count MPV Gran % Lymph % (Auto) Campbell % (Auto) Eos % (Auto) Baso % (Auto) Gran # Lymph # Campbell # Eos # Baso # Neutrophils % (Manual) Band Neutrophils % Lymphocytes % (Manual) Monocytes % (Manual) Platelet Evaluation Hypochromasia Anisocytosis (manual) PT INR APTT pCO2 25 L pO2 59 H 73.0 L HCO3 11.0 L ABG pH 7.25 L ABG Total CO2 11.8 L ABG O2 Saturation 97.9 ABG O2 Content ABG Base Excess -14.5 L ABG Hemoglobin ABG Carboxyhemoglobin POC ABG HHb (Measured) ABG Methemoglobin ABG O2 Capacity ABG Potassium 5.2 VBG pH 7.27 L VBG pCO2 26.0 L VBG HCO3 11.9 L VBG Total CO2 12.7 L VBG O2 Sat (Calc) 93.3 H VBG Base Excess -13.7 L VBG Potassium 5.3 H Hgb O2 Saturation Sodium 135.0 135.0 Chloride 105.0 107.0 Glucose 294 H 293 H Lactate 10.2 H* 10.2 H* Mechanical Rate FiO2 21.0 36.0 Tidal Volume PEEP Potassium Carbon Dioxide Anion Gap BUN Creatinine Est GFR ( Amer) Est GFR (Non-Af Amer) Random Glucose Calcium Phosphorus Magnesium Total Bilirubin Direct Bilirubin AST ALT Alkaline Phosphatase Lactate Dehydrogenase Total Creatine Kinase CK-MB (CK-2) CK-MB (CK-2) % Troponin I Total Protein Albumin Globulin Albumin/Globulin Ratio Triglycerides Cholesterol LDL Cholesterol Direct HDL Cholesterol Procalcitonin Arterial Blood Potassium 5.2 Venous Blood Potassium 5.3 H Urine Opiates Screen Urine Methadone Screen Acetaminophen Ur Barbiturates Screen Ur Phencyclidine Scrn Ur Amphetamines Screen U Benzodiazepines Scrn U Oth Cocaine Metabols U Cannabinoids Screen Alcohol, Quantitative Hepatitis A IgM Ab Hep Bs Antigen Hep B Core IgM Ab Hepatitis C Antibody Ur L.pneumophila Ag Blood Type A POSITIVE Antibody Screen Negative Crossmatch See Detail BBK History Checked Patient has bt 05/03/17 05/03/17 05/03/17 14:50 15:36 16:24 WBC RBC Hgb Hct MCV MCH MCHC RDW Plt Count MPV Gran % Lymph % (Auto) Campbell % (Auto) Eos % (Auto) Baso % (Auto) Gran # Lymph # Campbell # Eos # Baso # Neutrophils % (Manual) Band Neutrophils % Lymphocytes % (Manual) Monocytes % (Manual) Platelet Evaluation Hypochromasia Anisocytosis (manual) PT 15.2 H INR 1.41 H APTT 29.6 pCO2 48 H pO2 54.0 L 53 HCO3 8.4 L* ABG pH 6.85 L* ABG Total CO2 9.9 L ABG O2 Saturation 79.2 L ABG O2 Content ABG Base Excess -23.5 L ABG Hemoglobin ABG Carboxyhemoglobin POC ABG HHb (Measured) ABG Methemoglobin ABG O2 Capacity ABG Potassium 5.4 H VBG pH 6.86 L* VBG pCO2 56.0 VBG HCO3 10.0 L VBG Total CO2 11.7 L VBG O2 Sat (Calc) 76.6 H VBG Base Excess -23.9 L VBG Potassium 5.6 H Hgb O2 Saturation Sodium 136.0 137.0 Chloride 109.0 H 103.0 Glucose 306 H 323 H Lactate 12.7 H* 15.9 H* Mechanical Rate 20 FiO2 100.0 21.0 Tidal Volume 500 PEEP 5 Potassium Carbon Dioxide Anion Gap BUN Creatinine Est GFR ( Amer) Est GFR (Non-Af Amer) Random Glucose Calcium Phosphorus Magnesium Total Bilirubin Direct Bilirubin AST ALT Alkaline Phosphatase Lactate Dehydrogenase Total Creatine Kinase CK-MB (CK-2) CK-MB (CK-2) % Troponin I Total Protein Albumin Globulin Albumin/Globulin Ratio Triglycerides Cholesterol LDL Cholesterol Direct HDL Cholesterol Procalcitonin Arterial Blood Potassium 5.4 H Venous Blood Potassium 5.6 H Urine Opiates Screen Urine Methadone Screen Acetaminophen Ur Barbiturates Screen Ur Phencyclidine Scrn Ur Amphetamines Screen U Benzodiazepines Scrn U Oth Cocaine Metabols U Cannabinoids Screen Alcohol, Quantitative Hepatitis A IgM Ab Hep Bs Antigen Hep B Core IgM Ab Hepatitis C Antibody Ur L.pneumophila Ag Blood Type Antibody Screen Crossmatch BBK History Checked Assessment & Plan - Assessment and Plan (Free Text) Assessment: 71 year old male with a past medical history significant for emphysema, CHF ( last EF at 40%), previous DC with 2 stents placed (2008), osteoporosis, arthritis, HTN, HLD, GERD, and colitis presented to the ICU after becoming hemodynamically unstable after having undergone a CT guided liver biopsy with Dr. Villavicencio earlier today. Plan: Neuro: -Continue sedation with dipravan and mechanical ventilation Cardio: -Patient experienced brief PEA episode lasting 1 minute -ECHO pending -Hold Furosemide 20 mg once daily, Metoprolol Tartrate 25 mg BID, Lisinopril 10 mg once daily until HDS -Hold Plavix 75 mg once daily and Aspirin 81 mg once daily due to thrombocytopenia -Hold Lipitor in setting of elevated LFT's -Cardio consulted, all recommendations appreciated Pulm: -Patient sedated on dipravan and on mechanical ventilation at the following settings: RR-20 TV: 550 FiO2:100 PEEP:10 -Chest X-Ray confirmed placement of ET tube -Chest X-Ray on admission shows focal consolidation of left hilar region suspcious for pneumonia, patient was in hospital in January, likely healthcare- associated pneumonia -CT Chest showed lung mass noted, heterogeneous densities noted in the liver -Continue Solumedrol 40 IV q12 and Xopenex -Pulm consulted, all recommendations appreciated GI: -CT Chest showed lung mass noted, heterogeneous densities noted in the liver and CT guided liver biopsy performed by Dr. Villavicencio on 05/03 -Abdominal ultrasound read pending -Hepatitis panel pending -Surgery consulted for possible retroperitoneal bleed s/p liver biopsy -NPO -IR consulted, all recommendations appreciated -GI consulted, all recommendations appreciated Renal: -BUN/Creatinine acutely elevated to 22/1.5 -Strict I/O's -Poe catheter inserted -Nephro consulted, all recommendations appreciated Heme/Onc: -Patient required 4 total units of pRBC's, four units of FFP, three units of platelets and 4 liters of NS after patient become hemodynamically unstable s/p liver biopsy -Will continue to monitor vital signs -Hem/Onc consulted for possible lung carcinoma with liver mets, all recommendations appreciated MSK: -Continue Vitamin D 2000 mg once daily ID: -Continue atovaquone and merrem as per ID -Blood cultures, flu swab, legionella, MRSA, and procal pending -ID consulted, all recommendations appreciated Lines: -Central venous catheter placed on 05/03 -Continue peripheral lines GI Prophylaxis: Pepcid DVT Prophylaxis: SCD's Patient seen and case discussed with attending, Dr. Ybarra. - Date & Time Date: 05/03/17 Time: 18:09 <David Ybarra - Last Filed: 05/03/17 18:59> Meds - Medications Medications: Current Medications Acetaminophen (Tylenol 325mg Tab) 650 mg PO Q4 PRN PRN Reason: Pain, Mild (1-3) Arformoterol Tartrate (Brovana) 15 mcg IH [id number] [facility] Last Admin: 05/03/17 10:01 Dose: 15 mcg Atovaquone (Mepron) 750 mg PO BID [facility] Stop: 05/11/17 19:26 Last Admin: 05/03/17 09:42 Dose: 750 mg Budesonide (Pulmicort Respules) 0.5 mg IH [id number] [facility] Last Admin: 05/03/17 10:02 Dose: 0.5 mg Cholecalciferol (Vitamin D) 2,000 iu PO DAILY [facility] Last Admin: 05/03/17 09:42 Dose: 2,000 iu Famotidine (Pepcid) 40 mg PO HS [facility] Last Admin: 05/02/17 21:00 Dose: 40 mg Furosemide (Lasix) 20 mg PO DAILY [facility] Last Admin: 05/03/17 09:42 Dose: 20 mg Doxycycline Hyclate 100 mg/ (Sodium Chloride) 100 mls @ 100 mls/hr IVPB Q12 [facility] PRN Reason: Protocol Stop: 05/11/17 22:01 Last Admin: 05/03/17 09:43 Dose: 100 mls/hr Meropenem 1g/NS 100mL IVPB (Meropenem 1g/Ns 100ml Ivpb) 1 gm in 100 mls @ 100 mls/hr IVPB Q8 [facility] PRN Reason: Protocol Stop: 05/11/17 22:01 Last Admin: 05/03/17 05:00 Dose: 100 mls/hr Sodium Chloride (Sodium Chloride 0.9%) 1,000 mls @ 50 mls/hr IV .Q20H [facility] Last Admin: 05/02/17 22:17 Dose: 50 mls/hr Propofol (Diprivan) 1,000 mg in 100 mls @ 3.443 mls/hr IV .Q24H PRN; Protocol; 5 MCG/KG/MIN PRN Reason: TITRATE PER MD ORDER Phenylephrine HCl 40 mg/ (Sodium Chloride) 254 mls @ 38.1 mls/hr IV .Q6H40M PRN ; Protocol; 100 MCG/MIN PRN Reason: TITRATE PER MD ORDER Levalbuterol HCl (Xopenex) 1.25 mg IH [id number] [facility] Last Admin: 05/03/17 14:26 Dose: 1.25 mg Lisinopril (Zestril) 10 mg PO QAM [facility] Last Admin: 05/03/17 09:43 Dose: 10 mg Metoprolol Tartrate (Lopressor) 25 mg PO BID [facility] Last Admin: 05/03/17 09:43 Dose: 25 mg Oxycodone/Acetaminophen (Percocet 5/325 Mg Tab) 1 tab PO Q4H PRN PRN Reason: Pain, moderate (4-7) Stop: 05/06/17 12:43 Tramadol HCl (Ultram) 50 mg PO Q4H PRN PRN Reason: Pain, moderate (4-7) Last Admin: 05/03/17 03:16 Dose: 50 mg Results - Vital Signs Recent Vital Signs: Last Vital Signs Temp 97.9 F 05/03/17 13:24 Pulse 85 05/03/17 13:24 Resp 23 05/03/17 15:54 BP 106/63 05/03/17 13:24 Pulse Ox 80 L 05/03/17 15:54 - Labs Result Diagrams: 05/03/17 17:10 05/03/17 18:18 Labs: Laboratory Results - last 24 hr 05/02/17 05/02/17 05/02/17 18:20 18:20 18:20 WBC RBC Hgb Hct MCV MCH MCHC RDW Plt Count MPV Gran % Lymph % (Auto) Campbell % (Auto) Eos % (Auto) Baso % (Auto) Gran # Lymph # Campbell # Eos # Baso # Neutrophils % (Manual) Band Neutrophils % Lymphocytes % (Manual) Monocytes % (Manual) Platelet Evaluation Hypochromasia Anisocytosis (manual) PT INR APTT pCO2 pO2 HCO3 ABG pH ABG Total CO2 ABG O2 Saturation ABG O2 Content ABG Base Excess ABG Hemoglobin ABG Carboxyhemoglobin POC ABG HHb (Measured) ABG Methemoglobin ABG O2 Capacity ABG Potassium VBG pH VBG pCO2 VBG HCO3 VBG Total CO2 VBG O2 Sat (Calc) VBG Base Excess VBG Potassium Hgb O2 Saturation Sodium Chloride Glucose Lactate Mechanical Rate FiO2 Tidal Volume PEEP Potassium Carbon Dioxide Anion Gap BUN Creatinine Est GFR ( Amer) Est GFR (Non-Af Amer) Random Glucose Calcium Phosphorus Magnesium Total Bilirubin AST ALT Alkaline Phosphatase Lactate Dehydrogenase Total Creatine Kinase CK-MB (CK-2) CK-MB (CK-2) % Troponin I Total Protein Albumin Globulin Albumin/Globulin Ratio LDL Cholesterol Direct 39 Procalcitonin Arterial Blood Potassium Venous Blood Potassium Urine Opiates Screen Urine Methadone Screen Acetaminophen < 10.0 L Ur Barbiturates Screen Ur Phencyclidine Scrn Ur Amphetamines Screen U Benzodiazepines Scrn U Oth Cocaine Metabols U Cannabinoids Screen Alcohol, Quantitative < 10 Hepatitis A IgM Ab Hep Bs Antigen Hep B Core IgM Ab Hepatitis C Antibody Ur L.pneumophila Ag Blood Type Antibody Screen Crossmatch BBK History Checked 05/02/17 05/02/17 05/02/17 18:20 18:20 20:47 WBC RBC Hgb Hct MCV MCH MCHC RDW Plt Count MPV Gran % Lymph % (Auto) Campbell % (Auto) Eos % (Auto) Baso % (Auto) Gran # Lymph # Campbell # Eos # Baso # Neutrophils % (Manual) Band Neutrophils % Lymphocytes % (Manual) Monocytes % (Manual) Platelet Evaluation Hypochromasia Anisocytosis (manual) PT INR APTT pCO2 pO2 HCO3 ABG pH ABG Total CO2 ABG O2 Saturation ABG O2 Content ABG Base Excess ABG Hemoglobin ABG Carboxyhemoglobin POC ABG HHb (Measured) ABG Methemoglobin ABG O2 Capacity ABG Potassium VBG pH VBG pCO2 VBG HCO3 VBG Total CO2 VBG O2 Sat (Calc) VBG Base Excess VBG Potassium Hgb O2 Saturation Sodium Chloride Glucose Lactate Mechanical Rate FiO2 Tidal Volume PEEP Potassium Carbon Dioxide Anion Gap BUN Creatinine Est GFR ( Amer) Est GFR (Non-Af Amer) Random Glucose Calcium Phosphorus Magnesium Total Bilirubin AST ALT Alkaline Phosphatase Lactate Dehydrogenase Total Creatine Kinase CK-MB (CK-2) CK-MB (CK-2) % Troponin I Total Protein Albumin Globulin Albumin/Globulin Ratio LDL Cholesterol Direct Procalcitonin 0.30 Arterial Blood Potassium Venous Blood Potassium Urine Opiates Screen Negative Urine Methadone Screen Negative Acetaminophen Ur Barbiturates Screen Negative Ur Phencyclidine Scrn Negative Ur Amphetamines Screen Negative U Benzodiazepines Scrn Negative U Oth Cocaine Metabols Negative U Cannabinoids Screen Negative Alcohol, Quantitative Hepatitis A IgM Ab Negative Hep Bs Antigen Negative Hep B Core IgM Ab Negative Hepatitis C Antibody Negative Ur L.pneumophila Ag Blood Type Antibody Screen Crossmatch BBK History Checked 05/02/17 05/02/17 05/03/17 20:47 21:00 00:20 WBC RBC Hgb Hct MCV MCH MCHC RDW Plt Count MPV Gran % Lymph % (Auto) Campbell % (Auto) Eos % (Auto) Baso % (Auto) Gran # Lymph # Campbell # Eos # Baso # Neutrophils % (Manual) Band Neutrophils % Lymphocytes % (Manual) Monocytes % (Manual) Platelet Evaluation Hypochromasia Anisocytosis (manual) PT INR APTT pCO2 pO2 44 69 H HCO3 ABG pH ABG Total CO2 ABG O2 Saturation ABG O2 Content ABG Base Excess ABG Hemoglobin ABG Carboxyhemoglobin POC ABG HHb (Measured) ABG Methemoglobin ABG O2 Capacity ABG Potassium VBG pH 7.36 7.36 VBG pCO2 35.0 L 30.0 L VBG HCO3 19.8 L 16.9 L VBG Total CO2 20.9 L 17.8 L VBG O2 Sat (Calc) 84.1 H 96.9 H VBG Base Excess -5.0 L -7.3 L VBG Potassium 4.5 4.8 Hgb O2 Saturation Sodium 135.0 134.0 Chloride 100.0 101.0 Glucose 134 H 153 H Lactate 6.5 H* 6.3 H* Mechanical Rate FiO2 21.0 21.0 Tidal Volume PEEP Potassium Carbon Dioxide Anion Gap BUN Creatinine Est GFR ( Amer) Est GFR (Non-Af Amer) Random Glucose Calcium Phosphorus Magnesium Total Bilirubin AST ALT Alkaline Phosphatase Lactate Dehydrogenase Total Creatine Kinase CK-MB (CK-2) CK-MB (CK-2) % Troponin I Total Protein Albumin Globulin Albumin/Globulin Ratio LDL Cholesterol Direct Procalcitonin Arterial Blood Potassium Venous Blood Potassium 4.5 4.8 Urine Opiates Screen Urine Methadone Screen Acetaminophen Ur Barbiturates Screen Ur Phencyclidine Scrn Ur Amphetamines Screen U Benzodiazepines Scrn U Oth Cocaine Metabols U Cannabinoids Screen Alcohol, Quantitative Hepatitis A IgM Ab Hep Bs Antigen Hep B Core IgM Ab Hepatitis C Antibody Ur L.pneumophila Ag Negative Blood Type Antibody Screen Crossmatch BBK History Checked 05/03/17 05/03/17 05/03/17 06:30 06:30 10:20 WBC 12.8 H RBC 3.20 L Hgb 10.3 L Hct 29.5 L MCV 92.2 MCH 32.2 MCHC 34.9 RDW 13.7 Plt Count 45 L* MPV 10.3 Gran % 90.6 H Lymph % (Auto) 5.4 L Campbell % (Auto) 3.7 Eos % (Auto) 0.1 L Baso % (Auto) 0.2 Gran # 11.58 H Lymph # 0.7 L Campbell # 0.5 Eos # 0.0 Baso # 0.03 Neutrophils % (Manual) 89 H Band Neutrophils % 2 Lymphocytes % (Manual) 8 L Monocytes % (Manual) 1 Platelet Evaluation Low Hypochromasia Slight Anisocytosis (manual) 1+ PT INR APTT pCO2 28 L pO2 73.0 L HCO3 17.3 L ABG pH 7.40 ABG Total CO2 18.2 L ABG O2 Saturation 97.3 ABG O2 Content 13.5 L ABG Base Excess -6.4 L ABG Hemoglobin 10.2 L ABG Carboxyhemoglobin 2.2 H POC ABG HHb (Measured) 2.6 ABG Methemoglobin 1.4 ABG O2 Capacity 13.9 L ABG Potassium VBG pH VBG pCO2 VBG HCO3 VBG Total CO2 VBG O2 Sat (Calc) VBG Base Excess VBG Potassium Hgb O2 Saturation 93.8 L Sodium 137 Chloride 104 Glucose Lactate Mechanical Rate FiO2 28.0 Tidal Volume PEEP Potassium 4.8 Carbon Dioxide 16 L Anion Gap 22 H BUN 20 Creatinine 1.3 Est GFR ( Amer) > 60 Est GFR (Non-Af Amer) 54 Random Glucose 151 H Calcium 10.1 Phosphorus 3.8 Magnesium 1.7 Total Bilirubin 1.4 H AST 276 H ALT 76 H Alkaline Phosphatase 144 H Lactate Dehydrogenase 5735 H Total Creatine Kinase 665 H CK-MB (CK-2) 14.0 H CK-MB (CK-2) % 2.1 L Troponin I 0.04 D Total Protein 6.9 Albumin 3.9 Globulin 2.9 Albumin/Globulin Ratio 1.3 LDL Cholesterol Direct Procalcitonin Arterial Blood Potassium Venous Blood Potassium Urine Opiates Screen Urine Methadone Screen Acetaminophen Ur Barbiturates Screen Ur Phencyclidine Scrn Ur Amphetamines Screen U Benzodiazepines Scrn U Oth Cocaine Metabols U Cannabinoids Screen Alcohol, Quantitative Hepatitis A IgM Ab Hep Bs Antigen Hep B Core IgM Ab Hepatitis C Antibody Ur L.pneumophila Ag Blood Type Antibody Screen Crossmatch BBK History Checked 05/03/17 05/03/17 05/03/17 14:35 14:35 14:35 WBC 15.5 H D RBC 2.26 L Hgb 7.3 L D Hct 21.6 L MCV 95.6 D MCH 32.3 MCHC 33.8 RDW 13.9 Plt Count 37 L* MPV 10.6 Gran % 87.1 H Lymph % (Auto) 7.3 L Campbell % (Auto) 5.0 Eos % (Auto) 0.3 L Baso % (Auto) 0.3 Gran # 13.52 H Lymph # 1.1 L Campbell # 0.8 H Eos # 0.0 Baso # 0.04 Neutrophils % (Manual) Band Neutrophils % Lymphocytes % (Manual) Monocytes % (Manual) Platelet Evaluation Hypochromasia Anisocytosis (manual) PT INR APTT pCO2 pO2 59 H HCO3 ABG pH ABG Total CO2 ABG O2 Saturation ABG O2 Content ABG Base Excess ABG Hemoglobin ABG Carboxyhemoglobin POC ABG HHb (Measured) ABG Methemoglobin ABG O2 Capacity ABG Potassium VBG pH 7.27 L VBG pCO2 26.0 L VBG HCO3 11.9 L VBG Total CO2 12.7 L VBG O2 Sat (Calc) 93.3 H VBG Base Excess -13.7 L VBG Potassium 5.3 H Hgb O2 Saturation Sodium 136 135.0 Chloride 106 105.0 Glucose 294 H Lactate 10.2 H* Mechanical Rate FiO2 21.0 Tidal Volume PEEP Potassium 5.3 H Carbon Dioxide 13 L Anion Gap 22 H BUN 22 H Creatinine 1.5 H Est GFR ( Amer) 56 Est GFR (Non-Af Amer) 46 Random Glucose 262 H Calcium 9.2 Phosphorus 4.9 H Magnesium 1.9 Total Bilirubin 1.0 AST 195 H ALT 64 H Alkaline Phosphatase 92 Lactate Dehydrogenase 4217 H Total Creatine Kinase 463 H CK-MB (CK-2) 10.4 H CK-MB (CK-2) % 2.2 L Troponin I 0.04 Total Protein 4.9 L Albumin 2.7 L Globulin 2.2 Albumin/Globulin Ratio 1.2 LDL Cholesterol Direct Procalcitonin Arterial Blood Potassium Venous Blood Potassium 5.3 H Urine Opiates Screen Urine Methadone Screen Acetaminophen Ur Barbiturates Screen Ur Phencyclidine Scrn Ur Amphetamines Screen U Benzodiazepines Scrn U Oth Cocaine Metabols U Cannabinoids Screen Alcohol, Quantitative Hepatitis A IgM Ab Hep Bs Antigen Hep B Core IgM Ab Hepatitis C Antibody Ur L.pneumophila Ag Blood Type Antibody Screen Crossmatch BBK History Checked 05/03/17 05/03/17 05/03/17 14:40 14:47 14:50 WBC RBC Hgb Hct MCV MCH MCHC RDW Plt Count MPV Gran % Lymph % (Auto) Campbell % (Auto) Eos % (Auto) Baso % (Auto) Gran # Lymph # Campbell # Eos # Baso # Neutrophils % (Manual) Band Neutrophils % Lymphocytes % (Manual) Monocytes % (Manual) Platelet Evaluation Hypochromasia Anisocytosis (manual) PT 15.2 H INR 1.41 H APTT 29.6 pCO2 25 L pO2 73.0 L HCO3 11.0 L ABG pH 7.25 L ABG Total CO2 11.8 L ABG O2 Saturation 97.9 ABG O2 Content ABG Base Excess -14.5 L ABG Hemoglobin ABG Carboxyhemoglobin POC ABG HHb (Measured) ABG Methemoglobin ABG O2 Capacity ABG Potassium 5.2 VBG pH VBG pCO2 VBG HCO3 VBG Total CO2 VBG O2 Sat (Calc) VBG Base Excess VBG Potassium Hgb O2 Saturation Sodium 135.0 Chloride 107.0 Glucose 293 H Lactate 10.2 H* Mechanical Rate FiO2 36.0 Tidal Volume PEEP Potassium Carbon Dioxide Anion Gap BUN Creatinine Est GFR ( Amer) Est GFR (Non-Af Amer) Random Glucose Calcium Phosphorus Magnesium Total Bilirubin AST ALT Alkaline Phosphatase Lactate Dehydrogenase Total Creatine Kinase CK-MB (CK-2) CK-MB (CK-2) % Troponin I Total Protein Albumin Globulin Albumin/Globulin Ratio LDL Cholesterol Direct Procalcitonin Arterial Blood Potassium 5.2 Venous Blood Potassium Urine Opiates Screen Urine Methadone Screen Acetaminophen Ur Barbiturates Screen Ur Phencyclidine Scrn Ur Amphetamines Screen U Benzodiazepines Scrn U Oth Cocaine Metabols U Cannabinoids Screen Alcohol, Quantitative Hepatitis A IgM Ab Hep Bs Antigen Hep B Core IgM Ab Hepatitis C Antibody Ur L.pneumophila Ag Blood Type A POSITIVE Antibody Screen Negative Crossmatch See Detail BBK History Checked Patient has bt 05/03/17 05/03/17 05/03/17 15:36 16:24 17:10 WBC 21.5 H D RBC 3.14 L Hgb 9.6 L D Hct 29.9 L MCV 95.2 MCH 30.6 MCHC 32.1 RDW 14.0 Plt Count 82 L MPV 9.9 Gran % 80.8 H Lymph % (Auto) 12.0 L Campbell % (Auto) 5.2 Eos % (Auto) 0.9 L Baso % (Auto) 1.1 Gran # 17.37 H Lymph # 2.6 Campbell # 1.1 H Eos # 0.2 Baso # 0.23 Neutrophils % (Manual) Band Neutrophils % Lymphocytes % (Manual) Monocytes % (Manual) Platelet Evaluation Hypochromasia Anisocytosis (manual) PT INR APTT pCO2 48 H pO2 54.0 L 53 HCO3 8.4 L* ABG pH 6.85 L* ABG Total CO2 9.9 L ABG O2 Saturation 79.2 L ABG O2 Content ABG Base Excess -23.5 L ABG Hemoglobin ABG Carboxyhemoglobin POC ABG HHb (Measured) ABG Methemoglobin ABG O2 Capacity ABG Potassium 5.4 H VBG pH 6.86 L* VBG pCO2 56.0 VBG HCO3 10.0 L VBG Total CO2 11.7 L VBG O2 Sat (Calc) 76.6 H VBG Base Excess -23.9 L VBG Potassium 5.6 H Hgb O2 Saturation Sodium 136.0 137.0 Chloride 109.0 H 103.0 Glucose 306 H 323 H Lactate 12.7 H* 15.9 H* Mechanical Rate 20 FiO2 100.0 21.0 Tidal Volume 500 PEEP 5 Potassium Carbon Dioxide Anion Gap BUN Creatinine Est GFR ( Amer) Est GFR (Non-Af Amer) Random Glucose Calcium Phosphorus Magnesium Total Bilirubin AST ALT Alkaline Phosphatase Lactate Dehydrogenase Total Creatine Kinase CK-MB (CK-2) CK-MB (CK-2) % Troponin I Total Protein Albumin Globulin Albumin/Globulin Ratio LDL Cholesterol Direct Procalcitonin Arterial Blood Potassium 5.4 H Venous Blood Potassium 5.6 H Urine Opiates Screen Urine Methadone Screen Acetaminophen Ur Barbiturates Screen Ur Phencyclidine Scrn Ur Amphetamines Screen U Benzodiazepines Scrn U Oth Cocaine Metabols U Cannabinoids Screen Alcohol, Quantitative Hepatitis A IgM Ab Hep Bs Antigen Hep B Core IgM Ab Hepatitis C Antibody Ur L.pneumophila Ag Blood Type Antibody Screen Crossmatch BBK History Checked 05/03/17 05/03/17 05/03/17 18:18 18:18 18:18 WBC RBC Hgb Hct MCV MCH MCHC RDW Plt Count MPV Gran % Lymph % (Auto) Campbell % (Auto) Eos % (Auto) Baso % (Auto) Gran # Lymph # Campbell # Eos # Baso # Neutrophils % (Manual) Band Neutrophils % Lymphocytes % (Manual) Monocytes % (Manual) Platelet Evaluation Hypochromasia Anisocytosis (manual) PT 16.2 H INR 1.50 H APTT 47.4 H pCO2 pO2 77 H HCO3 ABG pH ABG Total CO2 ABG O2 Saturation ABG O2 Content ABG Base Excess ABG Hemoglobin ABG Carboxyhemoglobin POC ABG HHb (Measured) ABG Methemoglobin ABG O2 Capacity ABG Potassium VBG pH 7.01 L* VBG pCO2 45.0 VBG HCO3 11.4 L VBG Total CO2 12.8 L VBG O2 Sat (Calc) 95.4 H VBG Base Excess -19.4 L VBG Potassium 5.3 H Hgb O2 Saturation Sodium 140 139.0 Chloride 105 104.0 Glucose 278 H Lactate 15.5 H* Mechanical Rate FiO2 21.0 Tidal Volume PEEP Potassium 5.1 H Carbon Dioxide 13 L Anion Gap 27 H BUN 21 Creatinine 1.8 H Est GFR ( Amer) 45 Est GFR (Non-Af Amer) 37 Random Glucose 247 H Calcium 8.4 Phosphorus 8.4 H Magnesium 2.5 H Total Bilirubin 1.2 AST 462 H ALT 251 H Alkaline Phosphatase 87 Lactate Dehydrogenase Total Creatine Kinase CK-MB (CK-2) CK-MB (CK-2) % Troponin I Total Protein 5.0 L Albumin 2.8 L Globulin 2.3 Albumin/Globulin Ratio 1.2 LDL Cholesterol Direct Procalcitonin Arterial Blood Potassium Venous Blood Potassium 5.3 H Urine Opiates Screen Urine Methadone Screen Acetaminophen Ur Barbiturates Screen Ur Phencyclidine Scrn Ur Amphetamines Screen U Benzodiazepines Scrn U Oth Cocaine Metabols U Cannabinoids Screen Alcohol, Quantitative Hepatitis A IgM Ab Hep Bs Antigen Hep B Core IgM Ab Hepatitis C Antibody Ur L.pneumophila Ag Blood Type Antibody Screen Crossmatch BBK History Checked Assessment & Plan - Assessment and Plan (Free Text) Plan: Patient seen and examined, agree with residents note, with following additions. Patient is 71yo male with PMHx COPD, CHF, CAD, found to have new masses on CT chest in the lungs and in the liver, went for IR guided biopsy of the liver this morning. Patient tolerated the procedure well. Patient on the floor subsequently reported SOB, became pale and diaphoretic, and dropped BP to 80/40 [id number], with increasing lactate, and worsening renal function, HH 10.3-->7.3, brought to MICU, emergently intubated, L femoral TLC placed emergently for access as patient lost IV access. Patient had brief PEA arrest, 1 minutes, given Epinephrine 1mg, with ROSC. Patient given total of 4u pRBC, 2ffp, 1u platelets, with 2 more units FFP, and 2u platelets pending for transfusion, started on Neosynephrine, and Levophed. Patient is currently afebrile,T 97.9, BP 110/70 on Levophed 10mcg/min, Neosynephrine 200mcg/min. Patient set to receive 2u platelets, and 2u FFP. Repeat Labs sent. Patient intubated, sedated, comfortable. Patients PMD Dr Garcia updated, Surgical consult appreciated. Case discussed with Dr Villavicencio-IR. Will repeat all labs now, if HD stable, HH stable would proceed with CT A/P. Bedside echo demonstrated normal EF, no pericardial effusion, IVC poorly visualized. Patients at bedside, updated of clinical status. Patient remains in critical condition. Recommend: - keep intubated, sedated, repeat ABG - cont with broad spectrum abx, check procalcitonin - follow up cultures - echo - transfuse 2u FFP, 2u platelets - monitor HH, keep Hgb>9 - repeat all labs, including CBC, CMP, Coags, Lactate - follow up surgery - obtain renal consult - obtain CT A/P pelvis, once more stable, may require angiography embolization, case d.w Dr Villavicencio - try to obtain 2 large bore PIVs - hold all BP meds - SCDs - patient remains in critical condition, high risk for morbidity, mortality critical care time: 60 minutes
--- NOTE | 2017-05-03 18:06 | CP.PCM.CON ---
History of Present Illness - History of Present Illness History of Present Illness: General surgery consult note for Dr. Mcnair-Aaliyah Plascencia, PGY-1 Pt S & E at bedside. History as per ICU attending, ICU resident at bedside- ROS unobtainable due to acuite of situation- intubated/sedated. 71M w/PMH sig for metastatic liver CA with primary tumor of unknown origin with acute hypercapneic respiratory failure and lactic acidosis- intubated and sedated in ICU 2/2 acute hemorrhagic shock s/p liver biopsy today consulted for acute anemia- r/o retroperitoneal bleed. Pt was admitted to hospital post procedure to med-surg- MATH PROFESSOR called, coded for 2 mins with ROSC- pt found to be acutely anemic with Hgb 7.3- given 4 units pRBCs and 2 FFP and 2 platelets. On mechanical vent: 100% FiO2, 10 PEEP, 20 RR, 400 TV. Currently on Levophed and Phenylephrine. PMH: CHF, HTN, HLD, MD s/p stents x 1 on Plavix, Osteoporosis, chronic ischemic colitis, arthritis, GERD, metastatic liver CA w/unknown primary PSH: Cardiac stents x 2 All: NDKA SH: Former heavy smoker/ETOH user (quit in 2001), denies illicit drug use. Review of Systems - Review of Systems Systems not reviewed;Unavailable: Unstable Vital Signs, Intubated Past Patient History - Infectious Disease Hx of Infectious Diseases: None - Past Social History Smoking Status: Former Smoker - CARDIAC Hx Cardiac Disorders: Yes Hx Cardia Arrhythmia: Yes Hx Congestive Heart Failure: Yes Hx Hypercholesterolemia: Yes Hx Hypertension: Yes Hx Pacemaker: No Hx Peripheral Edema: Yes (+1 pitting ble) - PULMONARY Hx Respiratory Disorders: Yes (chronic cough) Hx Chronic Obstructive Pulmonary Disease (COPD): Yes - NEUROLOGICAL Hx Neurological Disorder: No Hx Alzheimer's Disease: No HX Cerebrovascular Accident: No Hx Dementia: No Hx Dizziness: No Hx Meningitis: No Hx Migraine: No Hx Parkinson's Disease: No Hx Seizures: No Hx Transient Ischemic Attacks (TIA): No - HEENT Hx Cataracts: Yes (surgery b/l) - RENAL Hx Chronic Kidney Disease: Yes - ENDOCRINE/METABOLIC Hx Endocrine Disorders: No - HEMATOLOGICAL/ONCOLOGICAL Hx Blood Disorders: (blood transfusion from ischemic colitis) - INTEGUMENTARY Hx Dermatological Problems: No Hx Basil Cell: No Hx Eczema: No Hx Melanoma: No Hx Psoriasis: No Hx Squamous Cell: No Other/Comment: multiple skin discolorations b/l arms - MUSCULOSKELETAL/RHEUMATOLOGICAL Hx Falls: No - GASTROINTESTINAL Other/Comment: ischemic colitis, colon polyp removed, hiatal hernia - PSYCHIATRIC Hx Substance Use: No - SURGICAL HISTORY Hx Surgeries: Yes Hx Cardiac Catheterization: Yes Hx Coronary Stent: Yes - ANESTHESIA Hx Anesthesia Reactions: Yes (HYPOTENSIVE AT END OF PROCEDURE IN THE PAST) Hx Malignant Hyperthermia: No Meds Allergies/Adverse Reactions: Allergies Allergy/AdvReac Type Severity Reaction Status Date / Time No Known Allergies Allergy Verified 05/02/17 10:10 - Medications Medications: Current Medications Acetaminophen (Tylenol 325mg Tab) 650 mg PO Q4 PRN PRN Reason: Pain, Mild (1-3) Arformoterol Tartrate (Brovana) 15 mcg IH [id number] [facility] Last Admin: 05/03/17 10:01 Dose: 15 mcg Atovaquone (Mepron) 750 mg PO BID [facility] Stop: 05/11/17 19:26 Last Admin: 05/03/17 09:42 Dose: 750 mg Budesonide (Pulmicort Respules) 0.5 mg IH [id number] [facility] Last Admin: 05/03/17 10:02 Dose: 0.5 mg Cholecalciferol (Vitamin D) 2,000 iu PO DAILY [facility] Last Admin: 05/03/17 09:42 Dose: 2,000 iu Famotidine (Pepcid) 40 mg PO HS [facility] Last Admin: 05/02/17 21:00 Dose: 40 mg Furosemide (Lasix) 20 mg PO DAILY [facility] Last Admin: 05/03/17 09:42 Dose: 20 mg Doxycycline Hyclate 100 mg/ (Sodium Chloride) 100 mls @ 100 mls/hr IVPB Q12 AAYUSH PRN Reason: Protocol Stop: 05/11/17 22:01 Last Admin: 05/03/17 09:43 Dose: 100 mls/hr Meropenem 1g/NS 100mL IVPB (Meropenem 1g/Ns 100ml Ivpb) 1 gm in 100 mls @ 100 mls/hr IVPB Q8 AAYUSH PRN Reason: Protocol Stop: 05/11/17 22:01 Last Admin: 05/03/17 05:00 Dose: 100 mls/hr Sodium Chloride (Sodium Chloride 0.9%) 1,000 mls @ 50 mls/hr IV .Q20H [facility] Last Admin: 05/02/17 22:17 Dose: 50 mls/hr Propofol (Diprivan) 1,000 mg in 100 mls @ 3.443 mls/hr IV .Q24H PRN; Protocol; 5 MCG/KG/MIN PRN Reason: TITRATE PER MD ORDER Phenylephrine HCl 40 mg/ (Sodium Chloride) 254 mls @ 38.1 mls/hr IV .Q6H40M PRN ; Protocol; 100 MCG/MIN PRN Reason: TITRATE PER MD ORDER Levalbuterol HCl (Xopenex) 1.25 mg IH [id number] [facility] Last Admin: 05/03/17 14:26 Dose: 1.25 mg Lisinopril (Zestril) 10 mg PO QAM [facility] Last Admin: 05/03/17 09:43 Dose: 10 mg Methylprednisolone (Solu-Medrol) 40 mg IVP Q12 [facility] Last Admin: 05/03/17 09:42 Dose: 40 mg Metoprolol Tartrate (Lopressor) 25 mg PO BID [facility] Last Admin: 05/03/17 09:43 Dose: 25 mg Oxycodone/Acetaminophen (Percocet 5/325 Mg Tab) 1 tab PO Q4H PRN PRN Reason: Pain, moderate (4-7) Stop: 05/06/17 12:43 Tramadol HCl (Ultram) 50 mg PO Q4H PRN PRN Reason: Pain, moderate (4-7) Last Admin: 05/03/17 03:16 Dose: 50 mg Physical Exam - Constitutional Appears: Non-toxic, No Acute Distress Additional comments: intubated, sedated - Head Exam Head Exam: ATRAUMATIC, NORMAL INSPECTION, NORMOCEPHALIC - Eye Exam Eye Exam: Normal appearance. absent: EOMI Pupil Exam: Miosis - ENT Exam ENT Exam: Mucous Membranes Dry. absent: Normal Exam Additional comments: ET tube in place - Respiratory Exam Respiratory Exam: NORMAL BREATHING PATTERN Additional comments: on mechanical vent - Cardiovascular Exam Cardiovascular Exam: REGULAR RHYTHM, +S1, +S2 Additional comments: on 2 pressors - GI/Abdominal Exam GI & Abdominal Exam: Soft. absent: Distended, Firm - Extremities Exam Extremities exam: Negative for: normal inspection (Left groin with TLC in place - some sanguinous strike through on dressing; Right groin with dressing in place after attempted A line insertion- C/D/I) - Neurological Exam Additional comments: intubated, sedated - Psychiatric Exam Additional comments: Unable to assess- intubated/sedated - Skin Additional comments: diffuse ecchymoses over Left shoulder, left forearm, some bleeding from Left femoral TLC site Results - Vital Signs Recent Vital Signs: Last Vital Signs Temp 97.9 F 05/03/17 13:24 Pulse 85 05/03/17 13:24 Resp 23 05/03/17 15:54 BP 106/63 05/03/17 13:24 Pulse Ox 80 L 05/03/17 15:54 - Labs Result Diagrams: 05/03/17 19:02 05/03/17 18:18 Labs: Laboratory Results - last 24 hr 05/02/17 05/02/17 05/02/17 18:20 18:20 18:20 WBC 14.4 H RBC 3.39 L Hgb 10.8 L Hct 31.4 L MCV 92.6 MCH 31.9 MCHC 34.4 RDW 13.3 Plt Count 46 L* MPV 10.2 Gran % 84.2 H Lymph % (Auto) 7.3 L Merrick % (Auto) 7.6 H Eos % (Auto) 0.6 L Baso % (Auto) 0.3 Gran # 12.15 H Lymph # 1.1 L Merrick # 1.1 H Eos # 0.1 Baso # 0.04 Neutrophils % (Manual) Band Neutrophils % Lymphocytes % (Manual) Monocytes % (Manual) Platelet Evaluation Hypochromasia Anisocytosis (manual) PT INR APTT pCO2 pO2 HCO3 ABG pH ABG Total CO2 ABG O2 Saturation ABG O2 Content ABG Base Excess ABG Hemoglobin ABG Carboxyhemoglobin POC ABG HHb (Measured) ABG Methemoglobin ABG O2 Capacity ABG Potassium VBG pH VBG pCO2 VBG HCO3 VBG Total CO2 VBG O2 Sat (Calc) VBG Base Excess VBG Potassium Hgb O2 Saturation Sodium Chloride Glucose Lactate Mechanical Rate FiO2 Tidal Volume PEEP Potassium Carbon Dioxide Anion Gap BUN Creatinine Est GFR ( Amer) Est GFR (Non-Af Amer) Random Glucose Calcium Phosphorus Magnesium Total Bilirubin Direct Bilirubin 0.4 AST ALT Alkaline Phosphatase Lactate Dehydrogenase Total Creatine Kinase CK-MB (CK-2) CK-MB (CK-2) % Troponin I Total Protein Albumin Globulin Albumin/Globulin Ratio Triglycerides 145 Cholesterol 98 L LDL Cholesterol Direct 39 HDL Cholesterol 39 Procalcitonin Arterial Blood Potassium Venous Blood Potassium Urine Opiates Screen Urine Methadone Screen Acetaminophen Ur Barbiturates Screen Ur Phencyclidine Scrn Ur Amphetamines Screen U Benzodiazepines Scrn U Oth Cocaine Metabols U Cannabinoids Screen Alcohol, Quantitative < 10 Hepatitis A IgM Ab Hep Bs Antigen Hep B Core IgM Ab Hepatitis C Antibody Ur L.pneumophila Ag Blood Type Antibody Screen Crossmatch BBK History Checked 05/02/17 05/02/17 05/02/17 18:20 18:20 18:20 WBC RBC Hgb Hct MCV MCH MCHC RDW Plt Count MPV Gran % Lymph % (Auto) Merrick % (Auto) Eos % (Auto) Baso % (Auto) Gran # Lymph # Merrick # Eos # Baso # Neutrophils % (Manual) Band Neutrophils % Lymphocytes % (Manual) Monocytes % (Manual) Platelet Evaluation Hypochromasia Anisocytosis (manual) PT INR APTT pCO2 pO2 HCO3 ABG pH ABG Total CO2 ABG O2 Saturation ABG O2 Content ABG Base Excess ABG Hemoglobin ABG Carboxyhemoglobin POC ABG HHb (Measured) ABG Methemoglobin ABG O2 Capacity ABG Potassium VBG pH VBG pCO2 VBG HCO3 VBG Total CO2 VBG O2 Sat (Calc) VBG Base Excess VBG Potassium Hgb O2 Saturation Sodium Chloride Glucose Lactate Mechanical Rate FiO2 Tidal Volume PEEP Potassium Carbon Dioxide Anion Gap BUN Creatinine Est GFR ( Amer) Est GFR (Non-Af Amer) Random Glucose Calcium Phosphorus Magnesium Total Bilirubin Direct Bilirubin AST ALT Alkaline Phosphatase Lactate Dehydrogenase Total Creatine Kinase CK-MB (CK-2) CK-MB (CK-2) % Troponin I Total Protein Albumin Globulin Albumin/Globulin Ratio Triglycerides Cholesterol LDL Cholesterol Direct HDL Cholesterol Procalcitonin 0.30 Arterial Blood Potassium Venous Blood Potassium Urine Opiates Screen Urine Methadone Screen Acetaminophen < 10.0 L Ur Barbiturates Screen Ur Phencyclidine Scrn Ur Amphetamines Screen U Benzodiazepines Scrn U Oth Cocaine Metabols U Cannabinoids Screen Alcohol, Quantitative Hepatitis A IgM Ab Negative Hep Bs Antigen Negative Hep B Core IgM Ab Negative Hepatitis C Antibody Negative Ur L.pneumophila Ag Blood Type Antibody Screen Crossmatch BBK History Checked 05/02/17 05/02/17 05/02/17 20:47 20:47 21:00 WBC RBC Hgb Hct MCV MCH MCHC RDW Plt Count MPV Gran % Lymph % (Auto) Merrick % (Auto) Eos % (Auto) Baso % (Auto) Gran # Lymph # Merrick # Eos # Baso # Neutrophils % (Manual) Band Neutrophils % Lymphocytes % (Manual) Monocytes % (Manual) Platelet Evaluation Hypochromasia Anisocytosis (manual) PT INR APTT pCO2 pO2 44 HCO3 ABG pH ABG Total CO2 ABG O2 Saturation ABG O2 Content ABG Base Excess ABG Hemoglobin ABG Carboxyhemoglobin POC ABG HHb (Measured) ABG Methemoglobin ABG O2 Capacity ABG Potassium VBG pH 7.36 VBG pCO2 35.0 L VBG HCO3 19.8 L VBG Total CO2 20.9 L VBG O2 Sat (Calc) 84.1 H VBG Base Excess -5.0 L VBG Potassium 4.5 Hgb O2 Saturation Sodium 135.0 Chloride 100.0 Glucose 134 H Lactate 6.5 H* Mechanical Rate FiO2 21.0 Tidal Volume PEEP Potassium Carbon Dioxide Anion Gap BUN Creatinine Est GFR ( Amer) Est GFR (Non-Af Amer) Random Glucose Calcium Phosphorus Magnesium Total Bilirubin Direct Bilirubin AST ALT Alkaline Phosphatase Lactate Dehydrogenase Total Creatine Kinase CK-MB (CK-2) CK-MB (CK-2) % Troponin I Total Protein Albumin Globulin Albumin/Globulin Ratio Triglycerides Cholesterol LDL Cholesterol Direct HDL Cholesterol Procalcitonin Arterial Blood Potassium Venous Blood Potassium 4.5 Urine Opiates Screen Negative Urine Methadone Screen Negative Acetaminophen Ur Barbiturates Screen Negative Ur Phencyclidine Scrn Negative Ur Amphetamines Screen Negative U Benzodiazepines Scrn Negative U Oth Cocaine Metabols Negative U Cannabinoids Screen Negative Alcohol, Quantitative Hepatitis A IgM Ab Hep Bs Antigen Hep B Core IgM Ab Hepatitis C Antibody Ur L.pneumophila Ag Negative Blood Type Antibody Screen Crossmatch BBK History Checked 05/03/17 05/03/17 05/03/17 00:20 06:30 06:30 WBC 12.8 H RBC 3.20 L Hgb 10.3 L Hct 29.5 L MCV 92.2 MCH 32.2 MCHC 34.9 RDW 13.7 Plt Count 45 L* MPV 10.3 Gran % 90.6 H Lymph % (Auto) 5.4 L Merrick % (Auto) 3.7 Eos % (Auto) 0.1 L Baso % (Auto) 0.2 Gran # 11.58 H Lymph # 0.7 L Merrick # 0.5 Eos # 0.0 Baso # 0.03 Neutrophils % (Manual) 89 H Band Neutrophils % 2 Lymphocytes % (Manual) 8 L Monocytes % (Manual) 1 Platelet Evaluation Low Hypochromasia Slight Anisocytosis (manual) 1+ PT INR APTT pCO2 pO2 69 H HCO3 ABG pH ABG Total CO2 ABG O2 Saturation ABG O2 Content ABG Base Excess ABG Hemoglobin ABG Carboxyhemoglobin POC ABG HHb (Measured) ABG Methemoglobin ABG O2 Capacity ABG Potassium VBG pH 7.36 VBG pCO2 30.0 L VBG HCO3 16.9 L VBG Total CO2 17.8 L VBG O2 Sat (Calc) 96.9 H VBG Base Excess -7.3 L VBG Potassium 4.8 Hgb O2 Saturation Sodium 134.0 137 Chloride 101.0 104 Glucose 153 H Lactate 6.3 H* Mechanical Rate FiO2 21.0 Tidal Volume PEEP Potassium 4.8 Carbon Dioxide 16 L Anion Gap 22 H BUN 20 Creatinine 1.3 Est GFR ( Amer) > 60 Est GFR (Non-Af Amer) 54 Random Glucose 151 H Calcium 10.1 Phosphorus 3.8 Magnesium 1.7 Total Bilirubin 1.4 H Direct Bilirubin AST 276 H ALT 76 H Alkaline Phosphatase 144 H Lactate Dehydrogenase 5735 H Total Creatine Kinase 665 H CK-MB (CK-2) 14.0 H CK-MB (CK-2) % 2.1 L Troponin I 0.04 D Total Protein 6.9 Albumin 3.9 Globulin 2.9 Albumin/Globulin Ratio 1.3 Triglycerides Cholesterol LDL Cholesterol Direct HDL Cholesterol Procalcitonin Arterial Blood Potassium Venous Blood Potassium 4.8 Urine Opiates Screen Urine Methadone Screen Acetaminophen Ur Barbiturates Screen Ur Phencyclidine Scrn Ur Amphetamines Screen U Benzodiazepines Scrn U Oth Cocaine Metabols U Cannabinoids Screen Alcohol, Quantitative Hepatitis A IgM Ab Hep Bs Antigen Hep B Core IgM Ab Hepatitis C Antibody Ur L.pneumophila Ag Blood Type Antibody Screen Crossmatch BBK History Checked 05/03/17 05/03/17 05/03/17 10:20 14:35 14:35 WBC 15.5 H D RBC 2.26 L Hgb 7.3 L D Hct 21.6 L MCV 95.6 D MCH 32.3 MCHC 33.8 RDW 13.9 Plt Count 37 L* MPV 10.6 Gran % 87.1 H Lymph % (Auto) 7.3 L Merrick % (Auto) 5.0 Eos % (Auto) 0.3 L Baso % (Auto) 0.3 Gran # 13.52 H Lymph # 1.1 L Merrick # 0.8 H Eos # 0.0 Baso # 0.04 Neutrophils % (Manual) Band Neutrophils % Lymphocytes % (Manual) Monocytes % (Manual) Platelet Evaluation Hypochromasia Anisocytosis (manual) PT INR APTT pCO2 28 L pO2 73.0 L HCO3 17.3 L ABG pH 7.40 ABG Total CO2 18.2 L ABG O2 Saturation 97.3 ABG O2 Content 13.5 L ABG Base Excess -6.4 L ABG Hemoglobin 10.2 L ABG Carboxyhemoglobin 2.2 H POC ABG HHb (Measured) 2.6 ABG Methemoglobin 1.4 ABG O2 Capacity 13.9 L ABG Potassium VBG pH VBG pCO2 VBG HCO3 VBG Total CO2 VBG O2 Sat (Calc) VBG Base Excess VBG Potassium Hgb O2 Saturation 93.8 L Sodium 136 Chloride 106 Glucose Lactate Mechanical Rate FiO2 28.0 Tidal Volume PEEP Potassium 5.3 H Carbon Dioxide 13 L Anion Gap 22 H BUN 22 H Creatinine 1.5 H Est GFR ( Amer) 56 Est GFR (Non-Af Amer) 46 Random Glucose 262 H Calcium 9.2 Phosphorus 4.9 H Magnesium 1.9 Total Bilirubin 1.0 Direct Bilirubin AST 195 H ALT 64 H Alkaline Phosphatase 92 Lactate Dehydrogenase 4217 H Total Creatine Kinase 463 H CK-MB (CK-2) 10.4 H CK-MB (CK-2) % 2.2 L Troponin I 0.04 Total Protein 4.9 L Albumin 2.7 L Globulin 2.2 Albumin/Globulin Ratio 1.2 Triglycerides Cholesterol LDL Cholesterol Direct HDL Cholesterol Procalcitonin Arterial Blood Potassium Venous Blood Potassium Urine Opiates Screen Urine Methadone Screen Acetaminophen Ur Barbiturates Screen Ur Phencyclidine Scrn Ur Amphetamines Screen U Benzodiazepines Scrn U Oth Cocaine Metabols U Cannabinoids Screen Alcohol, Quantitative Hepatitis A IgM Ab Hep Bs Antigen Hep B Core IgM Ab Hepatitis C Antibody Ur L.pneumophila Ag Blood Type Antibody Screen Crossmatch BBK History Checked 05/03/17 05/03/17 05/03/17 14:35 14:40 14:47 WBC RBC Hgb Hct MCV MCH MCHC RDW Plt Count MPV Gran % Lymph % (Auto) Merrick % (Auto) Eos % (Auto) Baso % (Auto) Gran # Lymph # Merrick # Eos # Baso # Neutrophils % (Manual) Band Neutrophils % Lymphocytes % (Manual) Monocytes % (Manual) Platelet Evaluation Hypochromasia Anisocytosis (manual) PT INR APTT pCO2 25 L pO2 59 H 73.0 L HCO3 11.0 L ABG pH 7.25 L ABG Total CO2 11.8 L ABG O2 Saturation 97.9 ABG O2 Content ABG Base Excess -14.5 L ABG Hemoglobin ABG Carboxyhemoglobin POC ABG HHb (Measured) ABG Methemoglobin ABG O2 Capacity ABG Potassium 5.2 VBG pH 7.27 L VBG pCO2 26.0 L VBG HCO3 11.9 L VBG Total CO2 12.7 L VBG O2 Sat (Calc) 93.3 H VBG Base Excess -13.7 L VBG Potassium 5.3 H Hgb O2 Saturation Sodium 135.0 135.0 Chloride 105.0 107.0 Glucose 294 H 293 H Lactate 10.2 H* 10.2 H* Mechanical Rate FiO2 21.0 36.0 Tidal Volume PEEP Potassium Carbon Dioxide Anion Gap BUN Creatinine Est GFR ( Amer) Est GFR (Non-Af Amer) Random Glucose Calcium Phosphorus Magnesium Total Bilirubin Direct Bilirubin AST ALT Alkaline Phosphatase Lactate Dehydrogenase Total Creatine Kinase CK-MB (CK-2) CK-MB (CK-2) % Troponin I Total Protein Albumin Globulin Albumin/Globulin Ratio Triglycerides Cholesterol LDL Cholesterol Direct HDL Cholesterol Procalcitonin Arterial Blood Potassium 5.2 Venous Blood Potassium 5.3 H Urine Opiates Screen Urine Methadone Screen Acetaminophen Ur Barbiturates Screen Ur Phencyclidine Scrn Ur Amphetamines Screen U Benzodiazepines Scrn U Oth Cocaine Metabols U Cannabinoids Screen Alcohol, Quantitative Hepatitis A IgM Ab Hep Bs Antigen Hep B Core IgM Ab Hepatitis C Antibody Ur L.pneumophila Ag Blood Type A POSITIVE Antibody Screen Negative Crossmatch See Detail BBK History Checked Patient has bt 05/03/17 05/03/17 05/03/17 14:50 15:36 16:24 WBC RBC Hgb Hct MCV MCH MCHC RDW Plt Count MPV Gran % Lymph % (Auto) Merrick % (Auto) Eos % (Auto) Baso % (Auto) Gran # Lymph # Merrick # Eos # Baso # Neutrophils % (Manual) Band Neutrophils % Lymphocytes % (Manual) Monocytes % (Manual) Platelet Evaluation Hypochromasia Anisocytosis (manual) PT 15.2 H INR 1.41 H APTT 29.6 pCO2 48 H pO2 54.0 L 53 HCO3 8.4 L* ABG pH 6.85 L* ABG Total CO2 9.9 L ABG O2 Saturation 79.2 L ABG O2 Content ABG Base Excess -23.5 L ABG Hemoglobin ABG Carboxyhemoglobin POC ABG HHb (Measured) ABG Methemoglobin ABG O2 Capacity ABG Potassium 5.4 H VBG pH 6.86 L* VBG pCO2 56.0 VBG HCO3 10.0 L VBG Total CO2 11.7 L VBG O2 Sat (Calc) 76.6 H VBG Base Excess -23.9 L VBG Potassium 5.6 H Hgb O2 Saturation Sodium 136.0 137.0 Chloride 109.0 H 103.0 Glucose 306 H 323 H Lactate 12.7 H* 15.9 H* Mechanical Rate 20 FiO2 100.0 21.0 Tidal Volume 500 PEEP 5 Potassium Carbon Dioxide Anion Gap BUN Creatinine Est GFR ( Amer) Est GFR (Non-Af Amer) Random Glucose Calcium Phosphorus Magnesium Total Bilirubin Direct Bilirubin AST ALT Alkaline Phosphatase Lactate Dehydrogenase Total Creatine Kinase CK-MB (CK-2) CK-MB (CK-2) % Troponin I Total Protein Albumin Globulin Albumin/Globulin Ratio Triglycerides Cholesterol LDL Cholesterol Direct HDL Cholesterol Procalcitonin Arterial Blood Potassium 5.4 H Venous Blood Potassium 5.6 H Urine Opiates Screen Urine Methadone Screen Acetaminophen Ur Barbiturates Screen Ur Phencyclidine Scrn Ur Amphetamines Screen U Benzodiazepines Scrn U Oth Cocaine Metabols U Cannabinoids Screen Alcohol, Quantitative Hepatitis A IgM Ab Hep Bs Antigen Hep B Core IgM Ab Hepatitis C Antibody Ur L.pneumophila Ag Blood Type Antibody Screen Crossmatch BBK History Checked 05/03/17 17:10 WBC 21.5 H D RBC 3.14 L Hgb 9.6 L D Hct 29.9 L MCV 95.2 MCH 30.6 MCHC 32.1 RDW 14.0 Plt Count 82 L MPV 9.9 Gran % 80.8 H Lymph % (Auto) 12.0 L Merrick % (Auto) 5.2 Eos % (Auto) 0.9 L Baso % (Auto) 1.1 Gran # 17.37 H Lymph # 2.6 Merrick # 1.1 H Eos # 0.2 Baso # 0.23 Neutrophils % (Manual) Band Neutrophils % Lymphocytes % (Manual) Monocytes % (Manual) Platelet Evaluation Hypochromasia Anisocytosis (manual) PT INR APTT pCO2 pO2 HCO3 ABG pH ABG Total CO2 ABG O2 Saturation ABG O2 Content ABG Base Excess ABG Hemoglobin ABG Carboxyhemoglobin POC ABG HHb (Measured) ABG Methemoglobin ABG O2 Capacity ABG Potassium VBG pH VBG pCO2 VBG HCO3 VBG Total CO2 VBG O2 Sat (Calc) VBG Base Excess VBG Potassium Hgb O2 Saturation Sodium Chloride Glucose Lactate Mechanical Rate FiO2 Tidal Volume PEEP Potassium Carbon Dioxide Anion Gap BUN Creatinine Est GFR ( Amer) Est GFR (Non-Af Amer) Random Glucose Calcium Phosphorus Magnesium Total Bilirubin Direct Bilirubin AST ALT Alkaline Phosphatase Lactate Dehydrogenase Total Creatine Kinase CK-MB (CK-2) CK-MB (CK-2) % Troponin I Total Protein Albumin Globulin Albumin/Globulin Ratio Triglycerides Cholesterol LDL Cholesterol Direct HDL Cholesterol Procalcitonin Arterial Blood Potassium Venous Blood Potassium Urine Opiates Screen Urine Methadone Screen Acetaminophen Ur Barbiturates Screen Ur Phencyclidine Scrn Ur Amphetamines Screen U Benzodiazepines Scrn U Oth Cocaine Metabols U Cannabinoids Screen Alcohol, Quantitative Hepatitis A IgM Ab Hep Bs Antigen Hep B Core IgM Ab Hepatitis C Antibody Ur L.pneumophila Ag Blood Type Antibody Screen Crossmatch BBK History Checked Assessment & Plan - Assessment and Plan (Free Text) Assessment: 71M w/acute anemia s/p liver biopsy, currently requiring ICU care- intubated, sedated, receiving blood products Plan: No surgical intervention at this time due to acuity of situation- pt hemodynamically unstable likely due to intra-abdominal bleeding s/p liver biopsy Bedside FAST exam without significant fluid in R flank gutter or pelvis CXR reviewed- no appreciable hemothorax Massive transfusion protocol H/H Q4H If given >6 units pRBCS, check ionized CA Monitor I/O's Poe Monitor for coagulopathy Will DW attending Thais, PGY-1 - Date & Time Date: 05/03/17 Time: 18:03
--- NOTE | 2017-05-03 18:22 | CON ---
DATE OF EVALUATION: 05/03/2017 REFERRING PHYSICIAN: Dr. Dixon REASON FOR CONSULTATION: Pneumonia. HISTORY OF PRESENT ILLNESS: The patient is a 71-year-old male with past medical history significant for chronic obstructive pulmonary disease, interstitial lung disease, coronary artery disease, status post multiple cardiac stents, who presents to [facility] with increasing shortness of breath at rest, dyspnea on exertion, and minimal cough - starting yesterday morning. Apparently, the patient had an episode of nausea and vomiting - which preceded the above pulmonary symptoms. He then went to the emergency room for additional evaluation and treatment. The patient is not short of breath at rest this morning. He does have chronic mild dyspnea on exertion. He also has a minimal cough with no significant sputum production. There is no history of chest pain, coughing up of blood or chest pain - made worse with deep respirations. No history of temperatures, chills or infectious exposure. There is no history of night sweats, weight loss or appetite change prior to the above events. No history of leg or calf pains. No history of syncope or diaphoresis. No history of recent travel or trauma. REVIEW OF SYSTEMS: The patient does admit to sporadic abdominal pain. As above, he did present after an episode of vomiting at home. No diarrhea. No urinary symptoms. No new neurologic or musculoskeletal complaints. Rest of the review of systems is negative. ALLERGIES: NO KNOWN ALLERGIES. SOCIAL HISTORY: Positive for former tobacco usage , also positive for former alcohol abuse. FAMILY HISTORY: No inheritable diseases. HOME MEDICATIONS: Include Ultram, Spiriva, Zantac, Lopressor, Zestril, Lasix, Advair, Plavix, aspirin. PHYSICAL EXAMINATION: GENERAL: The patient appears comfortable at rest. He is not short of breath. VITAL SIGNS: Temperature of 98.4, pulse on monitor was 88, respiratory rate 18, and blood pressure is 129/71. Oxygen saturation on nasal cannula is between 92% to 95%. HEENT: Normocephalic and atraumatic. NECK: No JVD. CARDIOVASCULAR: Systolic ejection murmur at the lower left sternal border. No S3 gallop. LUNGS: Chronic crackles at both bases. Minimal bilateral rhonchi. No wheezing. EXTREMITIES: Mild edema. No cyanosis, no clubbing. Calves are nontender to palpation. GASTROINTESTINAL: Abdomen is soft, nontender, nondistended. Bowel sounds are positive. SKIN: No acute rash. NEUROLOGIC: Limited at the present time. CURRENT LABORATORY DATA: Chest x-ray was done yesterday and reviewed. It is a poorly rotated portable film. There is a focal consolidation in the left hilum - not seen on the film of 12/14/2016 - most consistent with pneumonia. There are chronic interstitial changes remaining. CBC: White count of 14,4, hemoglobin of 10.8, hematocrit 31.4 and platelets of 46,000. Venous blood gas does show a lactate of 6.3. Complete metabolic profile: Chloride 94, glucose 138, bilirubin 1.5, AST 285, ALT 78, alkaline phosphates 163, LDH 5906. B-type natriuretic peptide 970. Rest of the metabolic profile was within normal limits. IMPRESSION: 1. Community-acquired pneumonia. 2. Sepsis syndrome. 3. Chronic obstructive pulmonary disease. 4. Interstitial lung disease. 5. Coronary artery disease. 6. Anemia, thrombocytopenia. PLAN: The patient presents to [facility] with shortness of breath at rest, dyspnea on exertion, and minimal cough - following an episode of nausea and vomiting earlier in the morning. The patient offers no other pulmonary symptoms. As above, he is much more comfortable this morning. I did review the chest x-ray as above. The x-ray is a poor portable film - and shows a left perihilar consolidation. This consolidation was not present on the chest x-ray of 12/14/2016. Thus the picture is most consistent with pneumonia. CAT scan of the chest, abdomen and pelvis has been ordered to rule out underlying pathology.. On physical exam , the patient is in mild bronchospasm. I will change the nebulizer treatments to a schedule dosage and continue with low dose intervenous steroids. Trevino cultures are pending. The patient remains on triple antibiotic coverage. Input by Dr. Jimenez is noted. Repeating labs are pending. Clinical status of the patient certainly appears improved - compared to yesterday. Additional pulmonary intervention will be based on the above results, as well as clinical status of the patient. I have discussed the above with Dr. Dixon this morning. Thank you very much for this pulmonary consultation. John Valdivia MD MTDPauline
[2017-05-03 18:23] LABS: VENOUS BLOOD GAS BASE EXCESS -19.4 mmol/L (0.0-2.0)
[2017-05-03 18:27] LABS: VENOUS BLOOD PH 7.01 (7.32-7.43)
[2017-05-03 18:31] LABS: ALB/GLOB RATIO 1.2 (1.1-1.8); BILIRUBIN,TOTAL 1.2 mg/dL (0.2-1.3); CALCIUM 8.4 mg/dL (8.4-10.5); MAGNESIUM 2.5 mg/dL (1.7-2.2); PHOSPHOROUS 8.4 mg/dL (2.5-4.5); POTASSIUM 5.1 mmol/L (3.6-5.0)
[2017-05-03 18:32] LABS: INR 1.5 (0.93-1.08); PARTIAL THROMBOPLASTIN TIME 47.4 Seconds (23.7-30.8)
[2017-05-03 18:43] LABS: TROPONIN I 0.05 ng/mL
[2017-05-03 19:06] LABS: BASO # 0.1 K/mm3 (0.0-2.0); BASO % 0.5 % (0.0-3.0); EOS # 0.2 (0.0-0.7); EOS % 0.7 % (1.5-5.0); GRAN # 17.97 (1.4-6.5); GRAN % 84.2 % (50.0-68.0); HEMATOCRIT 29.1 % (42.0-52.0); LYMPH # 2.2 (1.2-3.4); LYMPH % 10.4 % (22.0-35.0); MEAN CELL VOLUME 94.2 fl (80.0-105.0); MEAN CORPUSCULAR HEMOGLOBIN 30.4 pg (25.0-35.0); MEAN CORPUSCULAR HGB CONC 32.3 g/dl (31.0-37.0); MEAN PLATELET VOLUME 9.9 fl (7.0-11.0); MONO # 0.9 (0.1-0.6); MONO % 4.2 % (1.0-6.0); RED CELL DISTRIBUTION WIDTH 14.1 % (11.5-14.5); WHITE BLOOD COUNT 21.4 10^3/ul (4.5-11.0)
[2017-05-03 19:17] LABS: NEUTROPHIL 72 % (50.0-70.0)
[2017-05-03 19:19] LABS: BAND 13 % (0-2); EOSINOPHIL 1 % (0.0-3.0); MYELOCYTE 3 %; NUCLEATED RED BLOOD CELL 2 %
[2017-05-03 19:21] LABS: PLATELET ESTIMATE LOW (NORMAL)
--- NOTE | 2017-05-03 20:24 | CT ---
PROCEDURE: CT guided liver biopsy. HISTORY: Left upper lobe lung mass. Numerous liver metastasis. Needs liver biopsy for diagnosis and staging PHYSICIAN(S): Julian Villavicencio MD. TECHNIQUE: The relative risks and indications of the procedure were explained to the patient and consent obtained. The patient was placed supine on the CT scanner and preliminary images through the liver obtained. Conscious sedation and monitoring were provided throughout the procedure by a nurse. There are numerous low-attenuation lesions in both lobes liver. A confluent 5-6 centimeter area in the inferior aspect of the right lobe was selected for biopsy.. A oblique right lateral approach was selected and the area prepped and draped in the usual sterile fashion. 1% Xylocaine was used to anesthetize the skin and soft tissues. A 17-gauge guiding needle was advanced into the low-attenuation mass in the right lobe of the liver inferiorly.. Its position was confirmed with CT. Using coaxial technique, multiple core biopsies were obtained. The postprocedure images show no evidence of large or significant hemorrhage. IMPRESSION: 1. CT-guided liver biopsy as described above.
--- NOTE | 2017-05-03 21:25 | US ---
HISTORY: transaminitis COMPARISON: None. TECHNIQUE: Grayscale imaging was performed. FINDINGS: LIVER: Measures 15.6 cm. The liver has a nodular contour and diffuse heterogeneous coarse echotexture. There are multiple variable size hypoechoic nodules throughout the liver, the largest in the right hepatic lobe measures 2.3 x 2.2 x 2.4 cm. GALLBLADDER: There are multiple gallstones. No wall thickening or pericholecystic fluid. COMMON BILE DUCT: Measures 2.8 mm. No stones. No dilatation. PANCREAS: Unremarkable as visualized. No mass. No ductal dilatation. RIGHT KIDNEY: Measures 9.2cm. Normal echogenicity. No calculus, mass, or hydronephrosis. LEFT KIDNEY: Measures 9.7cm. Normal echogenicity. No calculus, mass, or hydronephrosis. SPLEEN: Normal in size and contour. No mass. AORTA: No aneurysmal dilatation. IVC: Unremarkable. OTHER FINDINGS: None. IMPRESSION: 1. Diffuse liver metastasis, the largest nodule in the right hepatic lobe measures 2.4 cm. 2. Cholelithiasis.
[2017-05-03] MEDS: Propofol 10 mg/ml 1,000 MG/100 ML VIAL IV PRN (23:06)
[2017-05-03] MEDS: NOREPINEPHRINE BIT/0.9 % NACL 4 MG/250 ML BAG IV PRN (23:23)
[2017-05-04] MEDS: Levalbuterol 1.25 MG/3 ML Inhal Soln UD IH SCH ×4 (01:54→19:42)
[2017-05-04 04:55] LABS: BASO # 0.07 K/mm3 (0.0-2.0); BASO % 0.3 % (0.0-3.0); GRAN # 19.84 (1.4-6.5); GRAN % 82.8 % (50.0-68.0); LYMPH # 2.3 (1.2-3.4); LYMPH % 9.4 % (22.0-35.0); MEAN CELL VOLUME 91.4 fl (80.0-105.0); MEAN CORPUSCULAR HEMOGLOBIN 31.7 pg (25.0-35.0); MEAN CORPUSCULAR HGB CONC 34.7 g/dl (31.0-37.0); MEAN PLATELET VOLUME 10.5 fl (7.0-11.0); MONO # 1.8 (0.1-0.6); MONO % 7.5 % (1.0-6.0); RED CELL DISTRIBUTION WIDTH 15.4 % (11.5-14.5)
[2017-05-04 05:02] LABS: HEMATOCRIT 20.2 % (42.0-52.0)
[2017-05-04] MEDS: Propofol 10 mg/ml 1,000 MG/100 ML VIAL IV PRN ×2 (05:08→10:26)
[2017-05-04 05:09] LABS: ALB/GLOB RATIO 1.3 (1.1-1.8); BILIRUBIN,TOTAL 1.9 mg/dL (0.2-1.3); CALCIUM 8.3 mg/dL (8.4-10.5); MAGNESIUM 2.4 mg/dL (1.7-2.2); PHOSPHOROUS 7.9 mg/dL (2.5-4.5); POTASSIUM 5.3 mmol/L (3.6-5.0); TOTAL PROTEIN 5.6 g/dL (5.8-8.3)
[2017-05-04] MEDS: Meropenem 1g/NS 100mL IVPB 1 GM/100 ML PIGGYBACK IVPB SCH (05:22)
[2017-05-04 05:33] LABS: ARTERIAL BLOOD GAS HCO3 13.6 mmol/L (21-28); ARTERIAL BLOOD GAS PH 7.31 (7.35-7.45)
[2017-05-04 06:17] LABS: HEMATOCRIT 20.2 % (42.0-52.0)
[2017-05-04] MEDS: Arformoterol 15 mcg/2 ml Inh Sol IH SCH ×2 (07:05→19:40)
[2017-05-04] MEDS: Budesonide 0.5 mg/2 ml Inhal Susp UD IH SCH ×2 (07:05→19:41)
[2017-05-04] MEDS: NOREPINEPHRINE BIT/0.9 % NACL 4 MG/250 ML BAG IV PRN (07:09)
--- NOTE | 2017-05-04 07:42 | CP.PCM.PN ---
<Boby Chamberlain - Last Filed: 05/04/17 14:39> Subjective - Date & Time of Evaluation Date of Evaluation: 05/04/17 Time of Evaluation: 07:38 - Subjective Subjective: GI Progress Note Pt seen and examined at bedside. Pt intubated and sedated in the ICU. No acute events overnight as per nursing. 12 point review of systems not obtained at this time due to acuity of condition. Objective - Vital Signs/Intake and Output Vital Signs (last 24 hours): Temp Pulse Resp BP Pulse Ox 97.9 F 77 33 H 117/76 100 05/03/17 13:24 05/04/17 01:40 05/04/17 07:10 05/04/17 01:40 05/04/17 07:10 Intake and Output: 05/04/17 05/04/17 06:59 18:59 Intake Total 1221 85 Balance 1221 85 - Medications Medications: Current Medications Acetaminophen (Tylenol 325mg Tab) 650 mg PO Q4 PRN PRN Reason: Pain, Mild (1-3) Arformoterol Tartrate (Brovana) 15 mcg IH [id number] [facility] Last Admin: 05/03/17 20:02 Dose: 15 mcg Atovaquone (Mepron) 750 mg PO BID [facility] Stop: 05/11/17 19:26 Last Admin: 05/03/17 19:24 Dose: Not Given Budesonide (Pulmicort Respules) 0.5 mg IH [id number] [facility] Last Admin: 05/03/17 20:03 Dose: 0.5 mg Cholecalciferol (Vitamin D) 2,000 iu PO DAILY [facility] Last Admin: 05/03/17 09:42 Dose: 2,000 iu Famotidine (Pepcid) 40 mg PO HS [facility] Last Admin: 05/03/17 21:38 Dose: Not Given Furosemide (Lasix) 20 mg PO DAILY [facility] Last Admin: 05/03/17 09:42 Dose: 20 mg Doxycycline Hyclate 100 mg/ (Sodium Chloride) 100 mls @ 100 mls/hr IVPB Q12 AAYUSH PRN Reason: Protocol Stop: 05/11/17 22:01 Last Admin: 05/03/17 21:55 Dose: 100 mls/hr Meropenem 1g/NS 100mL IVPB (Meropenem 1g/Ns 100ml Ivpb) 1 gm in 100 mls @ 100 mls/hr IVPB Q8 AAYUSH PRN Reason: Protocol Stop: 05/11/17 22:01 Last Admin: 05/04/17 05:22 Dose: 100 mls/hr Propofol (Diprivan) 1,000 mg in 100 mls @ 3.443 mls/hr IV .Q24H PRN; Protocol; 5 MCG/KG/MIN PRN Reason: TITRATE PER MD ORDER Last Admin: 05/04/17 05:08 Dose: 35 mcg/kg/min, 24.099 mls/hr Phenylephrine HCl 40 mg/ (Sodium Chloride) 254 mls @ 38.1 mls/hr IV .Q6H40M PRN ; Protocol; 100 MCG/MIN PRN Reason: TITRATE PER MD ORDER Last Titration: 05/04/17 06:56 Dose: 80 mcg/min, 30.48 mls/hr Sodium Bicarbonate 100 meq/ (Sodium Chloride) 1,100 mls @ 100 mls/hr IV .Q11H [facility] Last Admin: 05/04/17 03:16 Dose: 100 mls/hr NOREPINEPHRINE BIT/0.9 % NACL (Levophed 4 Mg/ 250 Ml Ns Premixed) 4 mg in 250 mls @ 15 mls/hr IV .[id number] PRN; Protocol; 4 MCG/MIN PRN Reason: TITRATE PER MD ORDER Last Admin: 05/04/17 07:09 Dose: 6 mcg/min, 22.5 mls/hr Levalbuterol HCl (Xopenex) 1.25 mg IH [id number] [facility] Last Admin: 05/04/17 01:54 Dose: 1.25 mg Lisinopril (Zestril) 10 mg PO QAM [facility] Last Admin: 05/03/17 09:43 Dose: 10 mg Metoprolol Tartrate (Lopressor) 25 mg PO BID [facility] Last Admin: 05/03/17 09:43 Dose: 25 mg Oxycodone/Acetaminophen (Percocet 5/325 Mg Tab) 1 tab PO Q4H PRN PRN Reason: Pain, moderate (4-7) Stop: 05/06/17 12:43 Tramadol HCl (Ultram) 50 mg PO Q4H PRN PRN Reason: Pain, moderate (4-7) Last Admin: 05/03/17 03:16 Dose: 50 mg - Labs Labs: 05/04/17 06:00 05/04/17 04:40 PT 16.2 Seconds (9.9-11.8) H 05/03/17 18:18 INR 1.50 (0.93-1.08) H 05/03/17 18:18 APTT 47.4 Seconds (23.7-30.8) H 05/03/17 18:18 - Constitutional Appears: Toxic, In Acute Distress - Head Exam Head Exam: ATRAUMATIC, NORMAL INSPECTION, NORMOCEPHALIC - ENT Exam ENT Exam: Mucous Membranes Moist - Respiratory Exam Respiratory Exam: Decreased Breath Sounds, Rhonchi. absent: Rales, Wheezes Additional comments: Intubated - Cardiovascular Exam Cardiovascular Exam: RRR, +S1, +S2 - GI/Abdominal Exam GI & Abdominal Exam: Soft, Diminished Bowel Sounds. absent: Distended, Guarding , Rigid, Tenderness - Extremities Exam Extremities Exam: Pedal Edema (+1 edema b/l). absent: Calf Tenderness - Neurological Exam Additional comments: Intubated and sedated - Skin Skin Exam: Intact, Warm Assessment and Plan - Assessment and Plan (Free Text) Assessment: Pulmonary and liver lesions s/p IR guided liver biopsy, complicated by shock and cardiac arrest Shock Liver secondary to hypotensive episode and cardiac arrest Sepsis secondary to Hospital acquired pneumonia Acute renal failure HTN HLD CHF [place] s/p stent placement on plavix Plan: - Will obtain Autoimmune workup for elevated LFTs - Shock Liver secondary to hypotensive episode, will continue to trend LFTs - Continue to transfuse blood products as necessary, received 4 units PRBCs, 4 units FFP, and 2 units of platelets - Continue with antibiotic management as per ID - Continue medical management as per ICU - No surgical intervention at this time, consider angiography with embolization for continued hemorrhage - Will continue to monitor patient closely Cintia, PGY-2 <Srini Pryor MD - Last Filed: 05/04/17 15:05> Objective - Vital Signs/Intake and Output Vital Signs (last 24 hours): Temp Pulse Resp BP Pulse Ox 97.9 F 77 33 H 117/76 100 05/03/17 13:24 05/04/17 01:40 05/04/17 07:10 05/04/17 01:40 05/04/17 07:10 Intake and Output: 08/30/17 08/30/17 06:59 18:59 Intake Total 1221 248 Balance 1221 248 - Medications Medications: Current Medications Acetaminophen (Tylenol 325mg Tab) 650 mg PO Q4 PRN PRN Reason: Pain, Mild (1-3) Arformoterol Tartrate (Brovana) 15 mcg IH [id number] [facility] Last Admin: 05/04/17 07:05 Dose: 15 mcg Atovaquone (Mepron) 750 mg PO BID [facility] Stop: 05/11/17 19:26 Last Admin: 05/04/17 10:35 Dose: Not Given Budesonide (Pulmicort Respules) 0.5 mg IH [id number] [facility] Last Admin: 05/04/17 07:05 Dose: 0.5 mg Cholecalciferol (Vitamin D) 2,000 iu PO DAILY [facility] Last Admin: 05/04/17 14:05 Dose: Not Given Famotidine (Pepcid) 40 mg PO HS [facility] Last Admin: 05/03/17 21:38 Dose: Not Given Furosemide (Lasix) 20 mg PO DAILY [facility] Last Admin: 05/03/17 09:42 Dose: 20 mg Doxycycline Hyclate 100 mg/ (Sodium Chloride) 100 mls @ 100 mls/hr IVPB Q12 AAYUSH PRN Reason: Protocol Stop: 05/11/17 22:01 Last Admin: 05/04/17 10:36 Dose: 100 mls/hr Propofol (Diprivan) 1,000 mg in 100 mls @ 3.443 mls/hr IV .Q24H PRN; Protocol; 5 MCG/KG/MIN PRN Reason: TITRATE PER MD ORDER Last Admin: 05/04/17 10:26 Dose: 35 mcg/kg/min, 24.099 mls/hr NOREPINEPHRINE BIT/0.9 % NACL (Levophed 4 Mg/ 250 Ml Ns Premixed) 4 mg in 250 mls @ 15 mls/hr IV .[id number] PRN; Protocol; 4 MCG/MIN PRN Reason: TITRATE PER MD ORDER Last Titration: 05/04/17 14:15 Dose: 4 mcg/min, 15 mls/hr Vasopressin 20 units/ Dextrose 101 mls @ 9.09 mls/hr IV .Q11H7M AAYUSH; 0.03 U/MIN PRN Reason: Protocol Meropenem 1g/NS 100mL IVPB (Meropenem 1g/Ns 100ml Ivpb) 1 gm in 100 mls @ 100 mls/hr IVPB Q12 AAYUSH PRN Reason: Protocol Stop: 05/13/17 10:01 Last Admin: 05/04/17 10:30 Dose: 100 mls/hr Sodium Bicarbonate 100 meq/ (Sodium Chloride) 1,100 mls @ 125 mls/hr IV .Q8H48M [facility] Levalbuterol HCl (Xopenex) 1.25 mg IH [id number] [facility] Last Admin: 05/04/17 13:06 Dose: 1.25 mg Lisinopril (Zestril) 10 mg PO QAM [facility] Last Admin: 05/03/17 09:43 Dose: 10 mg Metoprolol Tartrate (Lopressor) 25 mg PO BID [facility] Last Admin: 05/03/17 09:43 Dose: 25 mg Oxycodone/Acetaminophen (Percocet 5/325 Mg Tab) 1 tab PO Q4H PRN PRN Reason: Pain, moderate (4-7) Stop: 05/06/17 12:43 Tramadol HCl (Ultram) 50 mg PO Q4H PRN PRN Reason: Pain, moderate (4-7) Last Admin: 05/03/17 03:16 Dose: 50 mg Vancomycin HCl (Vancocin 25 Mg/Ml (Oral Use)) 125 mg PO QID [facility] PRN Reason: Protocol Last Admin: 05/04/17 14:04 Dose: Not Given - Labs Labs: 05/04/17 06:00 05/04/17 04:40 PT 16.2 Seconds (9.9-11.8) H 05/03/17 18:18 INR 1.50 (0.93-1.08) H 05/03/17 18:18 APTT 47.4 Seconds (23.7-30.8) H 05/03/17 18:18 Attending/Attestation - Attestation I have personally seen and examined this patient.: Yes I have fully participated in the care of the patient.: Yes I have reviewed all pertinent clinical information, including history, physical exam and plan: Yes Notes (Text): 05/04/17 15:01 I have seen and examined patient with GI fellow and emergency medical service manager. In brief , this is a 71 year old male with history of HTN, hyperlipidemia, CHF, [place] s/p stent on plavix, PVD, ischemic colitis who was admitted to hospital with complaint of progressive dyspnea for the past one day. GI called for evaluation of abdominal pain and elevated LFTs. Hospital course has become complicated by the diagnosis of liver lesions suspected to be metastatic along with a pulmonary mass, s/p IR guided liver biopsy with subsequent drop in Hb/ Hct and becoming hemodynamic instability requiring intubation and pressors. this morning his Hb has not responded to 4 units PRBC and will likely benefit from IR angiogram with embolization. On physical exam he has large hematoma on right flank. Discussed with ICU for IR guided embolization. Continue resuscitation measures. Likely ischemic hepatitis picture with underlying DIC on his transminases. Will send hepatitis and autoimmune serologies to complete work up. Rest of plan as per MICU. - Overall patient prognosis is quite poor given recent events with suspected metastatic disease burden. Will continue to monitor patient clinical course.
--- NOTE | 2017-05-04 07:43 | CP.PCM.PN ---
Subjective - Date & Time of Evaluation Date of Evaluation: 05/04/17 Time of Evaluation: 07:40 - Subjective Subjective: General Surgery note for Dr. Mcnair Patient seen an examined at bedside. Pressors lowered overnight per ICU team. Hgb 7.0 at 04:00 blood draw after 4 PRBC, 4 FFP and 2LR Platelets. another unit of platelets are to be given per ICU team and 5th unit of PRBC hanging at bedside at time of visit. Patient's blood pressure is hypotensive, but stable. Patient is intubated and on vent. Objective - Vital Signs/Intake and Output Vital Signs (last 24 hours): Temp Pulse Resp BP Pulse Ox 97.9 F 77 33 H 117/76 100 05/03/17 13:24 05/04/17 01:40 05/04/17 07:10 05/04/17 01:40 05/04/17 07:10 Intake and Output: 05/04/17 05/04/17 06:59 18:59 Intake Total 1221 85 Balance 1221 85 - Medications Medications: Current Medications Acetaminophen (Tylenol 325mg Tab) 650 mg PO Q4 PRN PRN Reason: Pain, Mild (1-3) Arformoterol Tartrate (Brovana) 15 mcg IH [id number] [facility] Last Admin: 05/03/17 20:02 Dose: 15 mcg Atovaquone (Mepron) 750 mg PO BID [facility] Stop: 05/11/17 19:26 Last Admin: 05/03/17 19:24 Dose: Not Given Budesonide (Pulmicort Respules) 0.5 mg IH [id number] [facility] Last Admin: 05/03/17 20:03 Dose: 0.5 mg Cholecalciferol (Vitamin D) 2,000 iu PO DAILY [facility] Last Admin: 05/03/17 09:42 Dose: 2,000 iu Famotidine (Pepcid) 40 mg PO HS [facility] Last Admin: 05/03/17 21:38 Dose: Not Given Furosemide (Lasix) 20 mg PO DAILY [facility] Last Admin: 05/03/17 09:42 Dose: 20 mg Doxycycline Hyclate 100 mg/ (Sodium Chloride) 100 mls @ 100 mls/hr IVPB Q12 [facility]USH PRN Reason: Protocol Stop: 05/11/17 22:01 Last Admin: 05/03/17 21:55 Dose: 100 mls/hr Meropenem 1g/NS 100mL IVPB (Meropenem 1g/Ns 100ml Ivpb) 1 gm in 100 mls @ 100 mls/hr IVPB Q8 [facility]USH PRN Reason: Protocol Stop: 05/11/17 22:01 Last Admin: 05/04/17 05:22 Dose: 100 mls/hr Propofol (Diprivan) 1,000 mg in 100 mls @ 3.443 mls/hr IV .Q24H PRN; Protocol; 5 MCG/KG/MIN PRN Reason: TITRATE PER MD ORDER Last Admin: 05/04/17 05:08 Dose: 35 mcg/kg/min, 24.099 mls/hr Phenylephrine HCl 40 mg/ (Sodium Chloride) 254 mls @ 38.1 mls/hr IV .Q6H40M PRN ; Protocol; 100 MCG/MIN PRN Reason: TITRATE PER MD ORDER Last Titration: 05/04/17 06:56 Dose: 80 mcg/min, 30.48 mls/hr Sodium Bicarbonate 100 meq/ (Sodium Chloride) 1,100 mls @ 100 mls/hr IV .Q11H [facility] Last Admin: 05/04/17 03:16 Dose: 100 mls/hr NOREPINEPHRINE BIT/0.9 % NACL (Levophed 4 Mg/ 250 Ml Ns Premixed) 4 mg in 250 mls @ 15 mls/hr IV .[id number] PRN; Protocol; 4 MCG/MIN PRN Reason: TITRATE PER MD ORDER Last Admin: 05/04/17 07:09 Dose: 6 mcg/min, 22.5 mls/hr Levalbuterol HCl (Xopenex) 1.25 mg IH [id number] [facility] Last Admin: 05/04/17 01:54 Dose: 1.25 mg Lisinopril (Zestril) 10 mg PO QAM [facility] Last Admin: 05/03/17 09:43 Dose: 10 mg Metoprolol Tartrate (Lopressor) 25 mg PO BID [facility] Last Admin: 05/03/17 09:43 Dose: 25 mg Oxycodone/Acetaminophen (Percocet 5/325 Mg Tab) 1 tab PO Q4H PRN PRN Reason: Pain, moderate (4-7) Stop: 05/06/17 12:43 Tramadol HCl (Ultram) 50 mg PO Q4H PRN PRN Reason: Pain, moderate (4-7) Last Admin: 05/03/17 03:16 Dose: 50 mg - Labs Labs: 05/04/17 06:00 05/04/17 04:40 PT 16.2 Seconds (9.9-11.8) H 05/03/17 18:18 INR 1.50 (0.93-1.08) H 05/03/17 18:18 APTT 47.4 Seconds (23.7-30.8) H 05/03/17 18:18 - Constitutional Appears: Older Than Stated Age, Chronically Ill - Respiratory Exam Additional comments: patient is on a vent - Cardiovascular Exam Cardiovascular Exam: REGULAR RHYTHM. absent: Bradycardia, Tachycardia - Extremities Exam Extremities Exam: Full ROM, Normal Inspection. absent: Pedal Edema - Neurological Exam Additional comments: patient is intubated and sedated - Skin Skin Exam: Dry, Mottled, Pallor. absent: Cyanosis, Diaphoretic Additional comments: legs have pallor arms have echymosis and mottled. - Additional Findings Additional findings: Patient is intubated and sedated. not able to perform full physical exam Assessment and Plan - Assessment and Plan (Free Text) Assessment: 71M hemorrhagic shock s/p liver biopsy Plan: continue with current ventilation settings per respiratory therapy and ICU management continue with current blood pressure control per respiratory therapy and ICU management 1:1:1:1 transfusion protocol per ICU management CBC q4 Platelets at 117 with 2 LR Plt administrations overnight Hgb at 7.0, 1 PRBC transfusing at bedside Monitor for signs of ecchymosis, swelling, hematomas at insertions sites of lines No surgical intervention at this time will follow closely Rossana Milian DO PGY1
--- NOTE | 2017-05-04 07:45 | RAD ---
HISTORY: intubated on vent COMPARISON: Portable chest 05/03/2017 FINDINGS: LUNGS: COPD images again identified as well as chronic fibrotic pattern bilaterally. No definitive and interval alveolar infiltrate is appreciate this time and there is no change in endotracheal tube position either. PLEURA: No significant pleural effusion identified, no pneumothorax apparent. CARDIOVASCULAR: Cardiac silhouette appears stable as well as left hilar density which is fairly humphreys vascular based on prior chest CT 09/08/2015. OSSEOUS STRUCTURES: No significant abnormalities. VISUALIZED UPPER ABDOMEN: Normal. OTHER FINDINGS: None. IMPRESSION: Stable COPD/ pulmonary fibrosis pattern without acute consolidation appreciated at this time. Endotracheal tube unchanged in position.
[2017-05-04] MEDS ORDERED: Vasopressin 20 UNITS in Dextrose 5% In Water 100 ML IV SCH (08:00)
[2017-05-04] MEDS ORDERED: Sodium Chloride 0.9% 1,000 ML IV STA (08:09)
[2017-05-04] MEDS ORDERED: Meropenem 1g/NS 100mL IVPB 1 GM/100 ML PIGGYBACK IVPB SCH (10:00)
--- NOTE | 2017-05-04 10:15 | CP.PCM.PN ---
Subjective - Date & Time of Evaluation Date of Evaluation: 05/04/17 Time of Evaluation: 09:10 - Subjective Subjective: Patient continues to be intubated, having loose bowel movement, no fevers overnight. Objective - Vital Signs/Intake and Output Vital Signs (last 24 hours): Temp Pulse Resp BP Pulse Ox 97.9 F 77 23 117/76 100 05/03/17 13:24 05/04/17 01:40 05/03/17 15:54 05/04/17 01:40 05/04/17 01:40 Intake and Output: 05/03/17 05/04/17 18:59 06:59 Intake Total 100 1206 Balance 100 1206 - Medications Medications: Current Medications Acetaminophen (Tylenol 325mg Tab) 650 mg PO Q4 PRN PRN Reason: Pain, Mild (1-3) Arformoterol Tartrate (Brovana) 15 mcg IH [id number] [facility] [place] Last Admin: 05/03/17 20:02 Dose: 15 mcg Atovaquone (Mepron) 750 mg PO BID [facility] [place] Stop: 05/11/17 19:26 Last Admin: 05/03/17 19:24 Dose: Not Given Budesonide (Pulmicort Respules) 0.5 mg IH [id number] [facility] [place] Last Admin: 05/03/17 20:03 Dose: 0.5 mg Cholecalciferol (Vitamin D) 2,000 iu PO DAILY [facility] [place] Last Admin: 05/03/17 09:42 Dose: 2,000 iu Famotidine (Pepcid) 40 mg PO HS [facility] [place] Last Admin: 05/03/17 21:38 Dose: Not Given Furosemide (Lasix) 20 mg PO DAILY [facility] [place] Last Admin: 05/03/17 09:42 Dose: 20 mg Doxycycline Hyclate 100 mg/ (Sodium Chloride) 100 mls @ 100 mls/hr IVPB Q12 [facility] [place] PRN Reason: Protocol Stop: 05/11/17 22:01 Last Admin: 05/03/17 21:55 Dose: 100 mls/hr Meropenem 1g/NS 100mL IVPB (Meropenem 1g/Ns 100ml Ivpb) 1 gm in 100 mls @ 100 mls/hr IVPB Q8 [facility] [place] PRN Reason: Protocol Stop: 05/11/17 22:01 Last Admin: 05/04/17 05:22 Dose: 100 mls/hr Propofol (Diprivan) 1,000 mg in 100 mls @ 3.443 mls/hr IV .Q24H PRN; Protocol; 5 MCG/KG/MIN PRN Reason: TITRATE PER MD ORDER Last Admin: 05/04/17 05:08 Dose: 35 mcg/kg/min, 24.099 mls/hr Phenylephrine HCl 40 mg/ (Sodium Chloride) 254 mls @ 38.1 mls/hr IV .Q6H40M PRN ; Protocol; 100 MCG/MIN PRN Reason: TITRATE PER MD ORDER Last Titration: 05/04/17 05:08 Dose: 80 mcg/min, 30.48 mls/hr Sodium Bicarbonate 100 meq/ (Sodium Chloride) 1,100 mls @ 100 mls/hr IV .Q11H [facility] [place] Last Admin: 05/04/17 03:16 Dose: 100 mls/hr NOREPINEPHRINE BIT/0.9 % NACL (Levophed 4 Mg/ 250 Ml Ns Premixed) 4 mg in 250 mls @ 15 mls/hr IV .[id number] PRN; Protocol; 4 MCG/MIN PRN Reason: TITRATE PER MD ORDER Last Titration: 05/04/17 05:36 Dose: 6 mcg/min, 22.5 mls/hr Levalbuterol HCl (Xopenex) 1.25 mg IH [id number] [facility] [place] Last Admin: 05/04/17 01:54 Dose: 1.25 mg Lisinopril (Zestril) 10 mg PO QAM [facility] [place] Last Admin: 05/03/17 09:43 Dose: 10 mg Metoprolol Tartrate (Lopressor) 25 mg PO BID [facility] [place] Last Admin: 05/03/17 09:43 Dose: 25 mg Oxycodone/Acetaminophen (Percocet 5/325 Mg Tab) 1 tab PO Q4H PRN PRN Reason: Pain, moderate (4-7) Stop: 05/06/17 12:43 Tramadol HCl (Ultram) 50 mg PO Q4H PRN PRN Reason: Pain, moderate (4-7) Last Admin: 05/03/17 03:16 Dose: 50 mg - Labs Labs: 05/04/17 06:00 05/04/17 04:40 PT 16.2 Seconds (9.9-11.8) H 05/03/17 18:18 INR 1.50 (0.93-1.08) H 05/03/17 18:18 APTT 47.4 Seconds (23.7-30.8) H 05/03/17 18:18 - Constitutional Appears: Other (Intubated and sedated) - ENT Exam Additional comments: ET tube in place - Neck Exam Neck Exam: absent: Meningismus - Respiratory Exam Respiratory Exam: Decreased Breath Sounds, Rales (scattered) - Cardiovascular Exam Cardiovascular Exam: +S1, +S2 - GI/Abdominal Exam GI & Abdominal Exam: Soft. absent: Tenderness Assessment and Plan - Assessment and Plan (Free Text) Plan: Assessment Severe sepsis with ventilator-dependent respiratory failure probably from post- obstructive pneumonitis related to a new onset left hilar mass suspicious for malignancy (with suspicion of mets to the liver S/P CT-guided biopsy), cannot rule out pneumocystis pneumonia in this patient with chronic lung fibrosis loos bowel movement R/O C. diff. associated diarrhea history of severe sepsis secondary to intra-abdominal infection - colitis Lung fibrosis COPD Coronary artery disease Plan continue Merrem, Doxycycline and Mepron (day 2) pending sputum cx; blood cx are negative follow up liver biopsy results follow up stool for C. diff. and will empirically start PO Vancomycin overall prognosis is poor
--- NOTE | 2017-05-04 10:16 | CT ---
PROCEDURE: CT Abdomen and Pelvis without intravenous contrast HISTORY: intra-abdominal bleeding COMPARISON: None. TECHNIQUE: Without contrast. Contrast Dose: Radiation dose: Total exam DLP = 1082 mGy-cm. This CT exam was performed using one or more of the following dose reduction techniques: Automated exposure control, adjustment of the mA and/or kV according to patient size, and/or use of iterative reconstruction technique. FINDINGS: LOWER THORAX: Emphysematous changes and fibrotic changes are seen at the lung bases. LIVER: There is a moderate amount of intraperitoneal blood layered mostly in the pelvis and around the liver. This measures 48 Hounsfield units in density. GALLBLADDER AND BILE DUCTS: Unremarkable. PANCREAS: Unremarkable. No gross lesion or ductal dilatation. SPLEEN: Unremarkable. ADRENALS: Unremarkable. No mass. KIDNEYS AND URETERS: Unremarkable. No hydronephrosis. No solid mass. VASCULATURE: Unremarkable. No aortic aneurysm. BOWEL: Unremarkable. No obstruction. No gross mural thickening. APPENDIX: Unremarkable. Normal appendix. PERITONEUM: Unremarkable. No free fluid. No free air. LYMPH NODES: Unremarkable. No enlarged lymph nodes. BLADDER: Unremarkable. REPRODUCTIVE: Unremarkable. BONES: Multiple lower thoracic compression fractures are again noted. OTHER FINDINGS: None. IMPRESSION: There is a moderate amount of intraperitoneal blood in the pelvis and around the liver.
[2017-05-04 10:28] LABS: VENOUS BLOOD GAS BASE EXCESS -13.1 mmol/L (0.0-2.0)
[2017-05-04] MEDS: Atovaquone 750 mg/5 ml Susp UD PO SCH ×2 (10:35→17:46)
--- NOTE | 2017-05-04 12:03 | PN ---
DATE: 05/04/2017(600am--650am) PULMONARY PROGRESS NOTE SUBJECTIVE: The patient is now in the ICU. He is intubated and sedated. PHYSICAL EXAMINATION: VITAL SIGNS: Temperature is 97.9, pulse is 77, respirations are 20/20, and blood pressure is 117/76. HEENT: Normocephalic and atraumatic. NECK: No JVD. CARDIOVASCULAR: Systolic ejection murmur at the low left sternal border. No S3 gallop. LUNGS: Chronic crackles at both lower lobes. Minimal bilateral rhonchi. No wheezing. EXTREMITIES: Mild edema. No cyanosis and no clubbing. GASTROINTESTINAL: Abdomen is soft and nondistended. Bowel sounds are positive. SKIN: No acute rash. NEUROLOGICAL: Exam is limited at the present time. PERTINENT LABORATORY DATA: Chest x-ray was done this morning and reviewed. There is a mild chronic increase in the interstitial changes bilaterally. The left perihilar opacity remains. Arterial blood gas was done on assist control of 20, tidal volume of 550, FiO2 of 100%, and PEEP of 10. Results: pH of 7.31, pCO2 of 27, and pO2 of 375. CAT scan of the chest, abdomen, and pelvis was done yesterday. I did discuss the CAT scan with Dr. Merritt (radiology) at length. On the CAT scan of the chest, there is a large left hilar mass with extensive mediastinal adenopathy. There is also a focal mass-like consolidation in the left upper lobe anteriorly,with an adjacent small infiltrate. Examining the liver, there are multiple solid lesions consistent with metastatic disease. CBC: White count of 24.0, hemoglobin of 7.0, hematocrit of 20.2, and platelets of 117. IMPRESSION: 1. Respiratory failure. 2. Status post cardiopulmonary resuscitation. 3. Advanced, stage IV lung cancer. 4. Community acquired pneumonia--left upper lobe. 5. Sepsis syndrome. 6. Status post liver biopsy, intraabdominal bleeding. 7. Severe anemia. 8. Renal insufficiency. PLAN: The patient is currently in the ICU. He is now ventilated and sedated. I did have a long talk with the nursing staff and medical assisting instructor at length. Apparently, after the liver biopsy, the patient experienced chest pain and shortness of breath. He was then transferred to the medical ICU. While in the ICU, he lost blood pressure and pulse, and was coded successfully. I did review the chest x-ray as above. The chest x-ray reveals a mild chronic increase in the interstitial changes. It also reveals the left perihilar opacity. I also noted the CAT scan above. The CAT scan is consistent with stage IV, advanced lung cancer. I have also reviewed the laboratory data. Persistent severe anemia is noted. The patient has received multiple blood products, and will receive additional transfusions this morning. The patient is critically ill at this point in time. Unfortunately, his overall prognosis is very guarded/poor. I will discuss the above with entire ICU team in the next few moments. I will also discuss the above with Dr. Dixon, and Dr. Villavicencio. John Valdivia MD [facility]
--- NOTE | 2017-05-04 12:12 | CP.PCM.CON ---
History of Present Illness - History of Present Illness History of Present Illness: Palliative consult requested by Dr Geoffrey Vela Reason: Goals of care 71 year old male who presented to ED via EMS with shortness of breath, non bloody emesis, RLQ pain. CT scan of Chest/Ab/Pelvis showed a large left hilar mass with extensive mediastinal adenopathy and also focal consolidation and possible mass in [place]. There is also metastatic disease to liver. Subsequently he underwent CT guided of liver biopsy. After the procedure he became of short of breath and developed chest pain. 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 CBC showed Hgb to be 7.3 after previously being 10.3. CT of abdomen now showing moderate amount of intraperitoneal blood in the pelvis and around liver. PMHx: Emphysema, MS s/p stents X2,arthritis,osteoporosis,HTN,GERD,ischemic colitis,HLD. Social History: Heavy smoker and regular alcohol use quit about 10 years ago, no drug abuse. , lives with spouse. Family History: Mother had CVA, Father arthritis. Advance Care Planning: The patient does not have an Advanced Directive. Review of Systems: per HPI, the patient is intubated and unable to participate in review. Past Patient History - Infectious Disease Hx of Infectious Diseases: None - Past Social History Smoking Status: Former Smoker - CARDIAC Hx Cardiac Disorders: Yes Hx Cardia Arrhythmia: Yes Hx Congestive Heart Failure: Yes Hx Hypercholesterolemia: Yes Hx Hypertension: Yes Hx Pacemaker: No Hx Peripheral Edema: Yes (+1 pitting ble) - PULMONARY Hx Respiratory Disorders: Yes (chronic cough) Hx Chronic Obstructive Pulmonary Disease (COPD): Yes - NEUROLOGICAL Hx Neurological Disorder: No Hx Alzheimer's Disease: No HX Cerebrovascular Accident: No Hx Dementia: No Hx Dizziness: No Hx Meningitis: No Hx Migraine: No Hx Parkinson's Disease: No Hx Seizures: No Hx Transient Ischemic Attacks (TIA): No - HEENT Hx Cataracts: Yes (surgery b/l) - RENAL Hx Chronic Kidney Disease: Yes - ENDOCRINE/METABOLIC Hx Endocrine Disorders: No - HEMATOLOGICAL/ONCOLOGICAL Hx Blood Disorders: (blood transfusion from ischemic colitis) - INTEGUMENTARY Hx Dermatological Problems: No Hx Basil Cell: No Hx Eczema: No Hx Melanoma: No Hx Psoriasis: No Hx Squamous Cell: No Other/Comment: multiple skin discolorations b/l arms - MUSCULOSKELETAL/RHEUMATOLOGICAL Hx Falls: No - GASTROINTESTINAL Other/Comment: ischemic colitis, colon polyp removed, hiatal hernia - PSYCHIATRIC Hx Substance Use: No - SURGICAL HISTORY Hx Surgeries: Yes Hx Cardiac Catheterization: Yes Hx Coronary Stent: Yes - ANESTHESIA Hx Anesthesia Reactions: Yes (HYPOTENSIVE AT END OF PROCEDURE IN THE PAST) Hx Malignant Hyperthermia: No Meds Allergies/Adverse Reactions: Allergies Allergy/AdvReac Type Severity Reaction Status Date / Time No Known Allergies Allergy Verified 05/02/17 10:10 - Medications Medications: Current Medications Acetaminophen (Tylenol 325mg Tab) 650 mg PO Q4 PRN PRN Reason: Pain, Mild (1-3) Arformoterol Tartrate (Brovana) 15 mcg IH [id number] [facility] Last Admin: 05/03/17 20:02 Dose: 15 mcg Atovaquone (Mepron) 750 mg PO BID [facility] Stop: 05/11/17 19:26 Last Admin: 05/04/17 10:35 Dose: Not Given Budesonide (Pulmicort Respules) 0.5 mg IH [id number] [facility] Last Admin: 05/03/17 20:03 Dose: 0.5 mg Cholecalciferol (Vitamin D) 2,000 iu PO DAILY [facility] Last Admin: 05/03/17 09:42 Dose: 2,000 iu Famotidine (Pepcid) 40 mg PO HS [facility] Last Admin: 05/03/17 21:38 Dose: Not Given Furosemide (Lasix) 20 mg PO DAILY [facility] Last Admin: 05/03/17 09:42 Dose: 20 mg Doxycycline Hyclate 100 mg/ (Sodium Chloride) 100 mls @ 100 mls/hr IVPB Q12 [facility] PRN Reason: Protocol Stop: 05/11/17 22:01 Last Admin: 05/04/17 10:36 Dose: 100 mls/hr Propofol (Diprivan) 1,000 mg in 100 mls @ 3.443 mls/hr IV .Q24H PRN; Protocol; 5 MCG/KG/MIN PRN Reason: TITRATE PER MD ORDER Last Admin: 05/04/17 10:26 Dose: 35 mcg/kg/min, 24.099 mls/hr NOREPINEPHRINE BIT/0.9 % NACL (Levophed 4 Mg/ 250 Ml Ns Premixed) 4 mg in 250 mls @ 15 mls/hr IV .[id number] PRN; Protocol; 4 MCG/MIN PRN Reason: TITRATE PER MD ORDER Last Titration: 05/04/17 08:30 Dose: 5 mcg/min, 18.75 mls/hr Vasopressin 20 units/ Dextrose 101 mls @ 9.09 mls/hr IV .[id number] [facility]AYUSH; 0.03 U/MIN PRN Reason: Protocol Meropenem 1g/NS 100mL IVPB (Meropenem 1g/Ns 100ml Ivpb) 1 gm in 100 mls @ 100 mls/hr IVPB Q12 [facility] PRN Reason: Protocol Stop: 05/13/17 10:01 Last Admin: 05/04/17 10:30 Dose: 100 mls/hr Sodium Bicarbonate 100 meq/ (Sodium Chloride) 1,100 mls @ 125 mls/hr IV .[id number] [facility] Levalbuterol HCl (Xopenex) 1.25 mg IH [id number] [facility] Last Admin: 05/04/17 01:54 Dose: 1.25 mg Lisinopril (Zestril) 10 mg PO QAM [facility] Last Admin: 05/03/17 09:43 Dose: 10 mg Metoprolol Tartrate (Lopressor) 25 mg PO BID [facility] Last Admin: 05/03/17 09:43 Dose: 25 mg Oxycodone/Acetaminophen (Percocet 5/325 Mg Tab) 1 tab PO Q4H PRN PRN Reason: Pain, moderate (4-7) Stop: 05/06/17 12:43 Tramadol HCl (Ultram) 50 mg PO Q4H PRN PRN Reason: Pain, moderate (4-7) Last Admin: 05/03/17 03:16 Dose: 50 mg Vancomycin HCl (Vancocin 25 Mg/Ml (Oral Use)) 125 mg PO QID [facility] PRN Reason: Protocol Physical Exam - Constitutional Appears: Chronically Ill - Head Exam Head Exam: NORMOCEPHALIC - Eye Exam Eye Exam: PERRL Pupil Exam: NORMAL ACCOMODATION - ENT Exam ENT Exam: Mucous Membranes Moist - Respiratory Exam Respiratory Exam: Clear to Auscultation Bilateral, NORMAL BREATHING PATTERN - Cardiovascular Exam Cardiovascular Exam: REGULAR RHYTHM, +S1, +S2 - GI/Abdominal Exam GI & Abdominal Exam: Normal Bowel Sounds, Soft - Extremities Exam Additional comments: bilateral lower extremity edema - Back Exam Back exam: NORMAL INSPECTION - Neurological Exam Neurological exam: Altered - Skin Skin Exam: Dry - Additional Findings Additional findings: Palliative performance scale rating 20% Results - Vital Signs Recent Vital Signs: Last Vital Signs Temp 97.9 F 05/03/17 13:24 Pulse 77 05/04/17 01:40 Resp 33 H 05/04/17 07:10 BP 117/76 05/04/17 01:40 Pulse Ox 100 05/04/17 07:10 - Labs Result Diagrams: 05/04/17 06:00 05/04/17 04:40 Labs: Laboratory Results - last 24 hr 05/02/17 05/02/17 05/03/17 18:20 18:20 14:35 WBC 15.5 H D RBC 2.26 L Hgb 7.3 L D Hct 21.6 L MCV 95.6 D MCH 32.3 MCHC 33.8 RDW 13.9 Plt Count 37 L* MPV 10.6 Gran % 87.1 H Lymph % (Auto) 7.3 L [place] % (Auto) 5.0 Eos % (Auto) 0.3 L Baso % (Auto) 0.3 Gran # 13.52 H Lymph # 1.1 L [place] # 0.8 H Eos # 0.0 Baso # 0.04 Neutrophils % (Manual) Band Neutrophils % Lymphocytes % (Manual) Monocytes % (Manual) Eosinophils % (Manual) Myelocytes % Nucleated RBC % Platelet Evaluation PT INR APTT pCO2 pO2 HCO3 ABG pH ABG Total CO2 ABG O2 Saturation ABG Base Excess ABG Potassium VBG pH VBG pCO2 VBG HCO3 VBG Total CO2 VBG O2 Sat (Calc) VBG Base Excess VBG Potassium Sodium Chloride Glucose Lactate Mechanical Rate FiO2 Tidal Volume PEEP Potassium Carbon Dioxide Anion Gap BUN Creatinine Est GFR ( Amer) Est GFR (Non-Af Amer) POC Glucose (mg/dL) Random Glucose Calcium Phosphorus Magnesium Total Bilirubin AST ALT Alkaline Phosphatase Lactate Dehydrogenase Total Creatine Kinase CK-MB (CK-2) CK-MB (CK-2) % Troponin I Total Protein Albumin Globulin Albumin/Globulin Ratio Procalcitonin 0.30 Arterial Blood Potassium Venous Blood Potassium Hepatitis A IgM Ab Negative Hep Bs Antigen Negative Hep B Core IgM Ab Negative Hepatitis C Antibody Negative Blood Type Antibody Screen Crossmatch BBK History Checked 05/03/17 05/03/17 05/03/17 14:35 14:35 14:40 WBC RBC Hgb Hct MCV MCH MCHC RDW Plt Count MPV Gran % Lymph % (Auto) [place] % (Auto) Eos % (Auto) Baso % (Auto) Gran # Lymph # [place] # Eos # Baso # Neutrophils % (Manual) Band Neutrophils % Lymphocytes % (Manual) Monocytes % (Manual) Eosinophils % (Manual) Myelocytes % Nucleated RBC % Platelet Evaluation PT INR APTT pCO2 25 L pO2 59 H 73.0 L HCO3 11.0 L ABG pH 7.25 L ABG Total CO2 11.8 L ABG O2 Saturation 97.9 ABG Base Excess -14.5 L ABG Potassium 5.2 VBG pH 7.27 L VBG pCO2 26.0 L VBG HCO3 11.9 L VBG Total CO2 12.7 L VBG O2 Sat (Calc) 93.3 H VBG Base Excess -13.7 L VBG Potassium 5.3 H Sodium 136 135.0 135.0 Chloride 106 105.0 107.0 Glucose 294 H 293 H Lactate 10.2 H* 10.2 H* Mechanical Rate FiO2 21.0 36.0 Tidal Volume PEEP Potassium 5.3 H Carbon Dioxide 13 L Anion Gap 22 H BUN 22 H Creatinine 1.5 H Est GFR ( Amer) 56 Est GFR (Non-Af Amer) 46 POC Glucose (mg/dL) Random Glucose 262 H Calcium 9.2 Phosphorus 4.9 H Magnesium 1.9 Total Bilirubin 1.0 AST 195 H ALT 64 H Alkaline Phosphatase 92 Lactate Dehydrogenase 4217 H Total Creatine Kinase 463 H CK-MB (CK-2) 10.4 H CK-MB (CK-2) % 2.2 L Troponin I 0.04 Total Protein 4.9 L Albumin 2.7 L Globulin 2.2 Albumin/Globulin Ratio 1.2 Procalcitonin Arterial Blood Potassium 5.2 Venous Blood Potassium 5.3 H Hepatitis A IgM Ab Hep Bs Antigen Hep B Core IgM Ab Hepatitis C Antibody Blood Type Antibody Screen Crossmatch BBK History Checked 05/03/17 05/03/17 05/03/17 14:47 14:50 15:36 WBC RBC Hgb Hct MCV MCH MCHC RDW Plt Count MPV Gran % Lymph % (Auto) [place] % (Auto) Eos % (Auto) Baso % (Auto) Gran # Lymph # [place] # Eos # Baso # Neutrophils % (Manual) Band Neutrophils % Lymphocytes % (Manual) Monocytes % (Manual) Eosinophils % (Manual) Myelocytes % Nucleated RBC % Platelet Evaluation PT 15.2 H INR 1.41 H APTT 29.6 pCO2 48 H pO2 54.0 L HCO3 8.4 L* ABG pH 6.85 L* ABG Total CO2 9.9 L ABG O2 Saturation 79.2 L ABG Base Excess -23.5 L ABG Potassium 5.4 H VBG pH VBG pCO2 VBG HCO3 VBG Total CO2 VBG O2 Sat (Calc) VBG Base Excess VBG Potassium Sodium 136.0 Chloride 109.0 H Glucose 306 H Lactate 12.7 H* Mechanical Rate 20 FiO2 100.0 Tidal Volume 500 PEEP 5 Potassium Carbon Dioxide Anion Gap BUN Creatinine Est GFR ( Amer) Est GFR (Non-Af Amer) POC Glucose (mg/dL) Random Glucose Calcium Phosphorus Magnesium Total Bilirubin AST ALT Alkaline Phosphatase Lactate Dehydrogenase Total Creatine Kinase CK-MB (CK-2) CK-MB (CK-2) % Troponin I Total Protein Albumin Globulin Albumin/Globulin Ratio Procalcitonin Arterial Blood Potassium 5.4 H Venous Blood Potassium Hepatitis A IgM Ab Hep Bs Antigen Hep B Core IgM Ab Hepatitis C Antibody Blood Type A POSITIVE Antibody Screen Negative Crossmatch See Detail BBK History Checked Patient has bt 05/03/17 05/03/17 05/03/17 16:24 17:10 18:18 WBC 21.5 H D RBC 3.14 L Hgb 9.6 L D Hct 29.9 L MCV 95.2 MCH 30.6 MCHC 32.1 RDW 14.0 Plt Count 82 L MPV 9.9 Gran % 80.8 H Lymph % (Auto) 12.0 L [place] % (Auto) 5.2 Eos % (Auto) 0.9 L Baso % (Auto) 1.1 Gran # 17.37 H Lymph # 2.6 [place] # 1.1 H Eos # 0.2 Baso # 0.23 Neutrophils % (Manual) 72 H Band Neutrophils % 13 H* Lymphocytes % (Manual) 8 L Monocytes % (Manual) 3 Eosinophils % (Manual) 1 Myelocytes % 3 Nucleated RBC % 2 Platelet Evaluation Low PT INR APTT pCO2 pO2 53 HCO3 ABG pH ABG Total CO2 ABG O2 Saturation ABG Base Excess ABG Potassium VBG pH 6.86 L* VBG pCO2 56.0 VBG HCO3 10.0 L VBG Total CO2 11.7 L VBG O2 Sat (Calc) 76.6 H VBG Base Excess -23.9 L VBG Potassium 5.6 H Sodium 137.0 140 Chloride 103.0 105 Glucose 323 H Lactate 15.9 H* Mechanical Rate FiO2 21.0 Tidal Volume PEEP Potassium 5.1 H Carbon Dioxide 13 L Anion Gap 27 H BUN 21 Creatinine 1.8 H Est GFR ( Amer) 45 Est GFR (Non-Af Amer) 37 POC Glucose (mg/dL) Random Glucose 247 H Calcium 8.4 Phosphorus 8.4 H Magnesium 2.5 H Total Bilirubin 1.2 AST 462 H ALT 251 H Alkaline Phosphatase 87 Lactate Dehydrogenase Total Creatine Kinase CK-MB (CK-2) CK-MB (CK-2) % Troponin I 0.05 D Total Protein 5.0 L Albumin 2.8 L Globulin 2.3 Albumin/Globulin Ratio 1.2 Procalcitonin Arterial Blood Potassium Venous Blood Potassium 5.6 H Hepatitis A IgM Ab Hep Bs Antigen Hep B Core IgM Ab Hepatitis C Antibody Blood Type Antibody Screen Crossmatch BBK History Checked 05/03/17 05/03/17 05/03/17 18:18 18:18 19:02 WBC 21.4 H RBC 3.09 L Hgb 9.4 L Hct 29.1 L MCV 94.2 MCH 30.4 MCHC 32.3 RDW 14.1 Plt Count 77 L MPV 9.9 Gran % 84.2 H Lymph % (Auto) 10.4 L [place] % (Auto) 4.2 Eos % (Auto) 0.7 L Baso % (Auto) 0.5 Gran # 17.97 H Lymph # 2.2 [place] # 0.9 H Eos # 0.2 Baso # 0.10 Neutrophils % (Manual) Band Neutrophils % Lymphocytes % (Manual) Monocytes % (Manual) Eosinophils % (Manual) Myelocytes % Nucleated RBC % Platelet Evaluation PT 16.2 H INR 1.50 H APTT 47.4 H pCO2 pO2 77 H HCO3 ABG pH ABG Total CO2 ABG O2 Saturation ABG Base Excess ABG Potassium VBG pH 7.01 L* VBG pCO2 45.0 VBG HCO3 11.4 L VBG Total CO2 12.8 L VBG O2 Sat (Calc) 95.4 H VBG Base Excess -19.4 L VBG Potassium 5.3 H Sodium 139.0 Chloride 104.0 Glucose 278 H Lactate 15.5 H* Mechanical Rate FiO2 21.0 Tidal Volume PEEP Potassium Carbon Dioxide Anion Gap BUN Creatinine Est GFR ( Amer) Est GFR (Non-Af Amer) POC Glucose (mg/dL) Random Glucose Calcium Phosphorus Magnesium Total Bilirubin AST ALT Alkaline Phosphatase Lactate Dehydrogenase Total Creatine Kinase CK-MB (CK-2) CK-MB (CK-2) % Troponin I Total Protein Albumin Globulin Albumin/Globulin Ratio Procalcitonin Arterial Blood Potassium Venous Blood Potassium 5.3 H Hepatitis A IgM Ab Hep Bs Antigen Hep B Core IgM Ab Hepatitis C Antibody Blood Type Antibody Screen Crossmatch BBK History Checked 05/04/17 05/04/17 05/04/17 04:40 04:40 05:15 WBC 24.0 H RBC 2.21 L Hgb 7.0 L D Hct 20.2 L* MCV 91.4 MCH 31.7 MCHC 34.7 RDW 15.4 H Plt Count 117 L MPV 10.5 Gran % 82.8 H Lymph % (Auto) 9.4 L [place] % (Auto) 7.5 H Eos % (Auto) 0.0 L Baso % (Auto) 0.3 Gran # 19.84 H Lymph # 2.3 [place] # 1.8 H Eos # 0.0 Baso # 0.07 Neutrophils % (Manual) Band Neutrophils % Lymphocytes % (Manual) Monocytes % (Manual) Eosinophils % (Manual) Myelocytes % Nucleated RBC % Platelet Evaluation PT INR APTT pCO2 27 L pO2 375.0 H HCO3 13.6 L ABG pH 7.31 L ABG Total CO2 14.4 L ABG O2 Saturation 100.4 H ABG Base Excess -11.0 L ABG Potassium 5.0 VBG pH VBG pCO2 VBG HCO3 VBG Total CO2 VBG O2 Sat (Calc) VBG Base Excess VBG Potassium Sodium 141 142.0 Chloride 106 111.0 H Glucose 117 H Lactate 10.0 H* Mechanical Rate FiO2 100.0 Tidal Volume PEEP Potassium 5.3 H Carbon Dioxide 15 L Anion Gap 25 H BUN 27 H Creatinine 2.3 H Est GFR ( Amer) 34 Est GFR (Non-Af Amer) 28 POC Glucose (mg/dL) Random Glucose 116 H Calcium 8.3 L Phosphorus 7.9 H Magnesium 2.4 H Total Bilirubin 1.9 H AST 2264 H ALT 820 H Alkaline Phosphatase 192 H Lactate Dehydrogenase Total Creatine Kinase CK-MB (CK-2) CK-MB (CK-2) % Troponin I Total Protein 5.6 L Albumin 3.2 Globulin 2.4 Albumin/Globulin Ratio 1.3 Procalcitonin Arterial Blood Potassium 5.0 Venous Blood Potassium Hepatitis A IgM Ab Hep Bs Antigen Hep B Core IgM Ab Hepatitis C Antibody Blood Type Antibody Screen Crossmatch BBK History Checked 05/04/17 05/04/17 05/04/17 06:00 08: 10:00 WBC RBC Hgb 7.1 L Hct 20.2 L* MCV MCH MCHC RDW Plt Count MPV Gran % Lymph % (Auto) [place] % (Auto) Eos % (Auto) Baso % (Auto) Gran # Lymph # [place] # Eos # Baso # Neutrophils % (Manual) Band Neutrophils % Lymphocytes % (Manual) Monocytes % (Manual) Eosinophils % (Manual) Myelocytes % Nucleated RBC % Platelet Evaluation PT INR APTT pCO2 pO2 HCO3 ABG pH ABG Total CO2 ABG O2 Saturation ABG Base Excess ABG Potassium VBG pH VBG pCO2 VBG HCO3 VBG Total CO2 VBG O2 Sat (Calc) VBG Base Excess VBG Potassium Sodium Chloride Glucose Lactate Mechanical Rate FiO2 Tidal Volume PEEP Potassium Carbon Dioxide Anion Gap BUN Creatinine Est GFR ( Amer) Est GFR (Non-Af Amer) POC Glucose (mg/dL) 101 Random Glucose Calcium Phosphorus Magnesium Total Bilirubin AST ALT Alkaline Phosphatase Lactate Dehydrogenase Total Creatine Kinase CK-MB (CK-2) CK-MB (CK-2) % Troponin I 0.11 D Total Protein Albumin Globulin Albumin/Globulin Ratio Procalcitonin Arterial Blood Potassium Venous Blood Potassium Hepatitis A IgM Ab Hep Bs Antigen Hep B Core IgM Ab Hepatitis C Antibody Blood Type Antibody Screen Crossmatch BBK History Checked 05/04/17 05/04/17 10:10 11:23 WBC RBC Hgb Hct MCV MCH MCHC RDW Plt Count MPV Gran % Lymph % (Auto) [place] % (Auto) Eos % (Auto) Baso % (Auto) Gran # Lymph # [place] # Eos # Baso # Neutrophils % (Manual) Band Neutrophils % Lymphocytes % (Manual) Monocytes % (Manual) Eosinophils % (Manual) Myelocytes % Nucleated RBC % Platelet Evaluation PT INR APTT pCO2 pO2 49 HCO3 ABG pH ABG Total CO2 ABG O2 Saturation ABG Base Excess ABG Potassium VBG pH 7.20 L VBG pCO2 36.0 L VBG HCO3 14.1 L VBG Total CO2 15.2 L VBG O2 Sat (Calc) 89.6 H VBG Base Excess -13.1 L VBG Potassium 5.4 H Sodium 142.0 Chloride 109.0 H Glucose 93 Lactate 10.7 H* Mechanical Rate FiO2 21.0 Tidal Volume PEEP Potassium Carbon Dioxide Anion Gap BUN Creatinine Est GFR ( Amer) Est GFR (Non-Af Amer) POC Glucose (mg/dL) 102 Random Glucose Calcium Phosphorus Magnesium Total Bilirubin AST ALT Alkaline Phosphatase Lactate Dehydrogenase Total Creatine Kinase CK-MB (CK-2) CK-MB (CK-2) % Troponin I Total Protein Albumin Globulin Albumin/Globulin Ratio Procalcitonin Arterial Blood Potassium Venous Blood Potassium 5.4 H Hepatitis A IgM Ab Hep Bs Antigen Hep B Core IgM Ab Hepatitis C Antibody Blood Type Antibody Screen Crossmatch BBK History Checked Assessment & Plan - Assessment and Plan (Free Text) Assessment: 71 year old male with history of emphysema,COPD who was admitted with shortness of breath and found to have hilar mass, likely liver metastasis. 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 He is intubated/ sedated. Drop in Hgb,transfused. Patient's Libra at bedside. states that her had not been feeing well for a few days prior to admission. She became alarmed when he complained of increasing shortness of breath. states the patient is stoic and does not seek medical help until absolutely necessary. Extensive discussion with patients , son and daughter. Family requesting patient be made a DNR. They are hopeful that intubation/mechanical ventilation is temporary/reversible. They expressed that they do not want prison mechanical ventilation. They are aware that patient likely has extensive metastatic disease and are thinking in terms of conservative care. Time spent with family in goals of care discussion and advance care planning, 50 minutes Plan: DNR Advance care planning
[2017-05-04] MEDS: Vancomycin 25 MG/ML PO SCH ×2 (14:04→17:47)
--- NOTE | 2017-05-04 14:17 | CON ---
DATE: ONCOLOGY CONSULTATION HISTORY OF PRESENT ILLNESS: This is a 71-year-old male with radiologic diagnosis of lung cancer metastatic to his liver. I have seen the patient in the past. 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 I spoke with Dr. Valdivia, who tells me that 4 months ago, he had a chest x-ray, which was completely normal. In any event, the patient is still having evidently shortness of breath, came to the hospital feeling weak suddenly within the last few weeks. PHYSICAL EXAMINATION: GENERAL: The patient is right now intubated as of yesterday. SKIN: No petechiae. No bruises. HEENT: Anicteric. NODES: Nonpalpable in axillary, cervical, supraclavicular, and inguinal regions. HEART: S1 and S2. ABDOMEN: Shows no liver mass. No ascites. No tenderness. No spleen. No rebound. EXTREMITIES: No edema. CENTRAL NERVOUS SYSTEM: Plantars are downgoing bilaterally. ASSESSMENT AND PLAN: The patient was found to have a very large hilar mass with liver metastasis with lactic acidosis. He has liver biopsy and evidently became anemic after that, possibly bleeding afterwards. 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 We will await for the biopsy report, but right now he is intubated and lactic acidosis and it is unlikely that we will even be able to get him to get chemotherapy. We will see how he does over the next couple of days in terms of breathing, even able to extubate him and we are awaiting for the pathology report. James Reed MD
--- NOTE | 2017-05-04 14:34 | PN ---
DATE: 05/04/2017 SUBJECTIVE: The patient is seen and examined at bedside. He is on 6 mcg per minute of Levophed, phenylephrine was weaned off. His blood pressure on bed 118/61. He is sedated with Propofol 35 mcg per/kg/minute. He is on PRBC. FiO2 went down to 40% and PEEP down to 5 from 10. His oxygen saturation 100% on that setting. Overall, setting is 550/20/5/40. ABG on FiO2 of 60% and PEEP 10 were 7.31/27/375. Lactic acid 10, down from 15.5. Bedside ultrasound of IVC reveal IVC diameter 1.6 cm with more than 50% decrease in diameter on inspiration. PHYSICAL EXAMINATION VITAL SIGNS: Heart rate 89, oxygen saturation 100%. HEENT: Head and neck, atraumatic. LUNGS: Decreased breath sounds bilaterally. No wheezing. No crackles. HEART: Regular rate and rhythm. S1 and S2 normal. ABDOMEN: Soft, nontender, nondistended status post liver biopsy. MUSCULOSKELETAL: No C/C/E. NEUROLOGIC: Patient is sedated. SKIN: Moist. PSYCHIATRIC: Not responsive to stimuli. LABORATORY DATA: WBC 24, hemoglobin 7.1 down from 9.4, platelet count 117 (4 PRBC were ordered), INR 1.5 (4 FFP were ordered). Sodium 141, potassium 5.3, chloride 106, carbon dioxide 15, BUN 27, creatinine 2.3 up from 1.8, glucose 116, AST 2264, ALT 820 (mostly likely shock liver). Troponin 0.05 as of yesterday. Arterial blood potassium is 5. Chest x-ray, no change compared with yesterday. MEDICATIONS: Tylenol p.r.n., Brovana, Mepron, Pulmicort, vitamin D, doxycycline, Pepcid, Xopenex, meropenem, norepinephrine. ASSESSMENT AND PLAN: This is a 71-year-old gentleman with hemorrhagic shock status post liver biopsy with likely intraabdominal/intraperitoneal bleeding. He was too unstable for the CAT yesterday; however, today he is improved and will be going to the CT of the abdomen and pelvis for further workup. Surgical service as well as IR service is following patient as well. Patient is doing somewhat better. He is off of phenylephrine. His FiO2 went down to 40% and he is still maintaining adequate gas exchange. His PEEP went down from 10 to 5. He is still little bit dry based on bedside IVC ultrasound. One liter of normal saline will be given. Blood products will be transfused to avoid dilutional coagulopathy and maintain Hb>9. Patient will be maintained normothermic. His acidosis substantially improved and his lactic acid level is trending down. We will change it to monitor his lactic acid and overall clinical status as well. If bleeding confirmed or observed on the CAT scan, consideration will be given to angiography with potential embolization. That, however, will be deferred to IR service. NEUROLOGIC: Patient is sedated with Propofol. Once CAT scan with or without procedure done we will consider tapering down/off Propofol drip. PULMONARY: We will continue with protective lung ventilation strategy to avoid ventilator-induced injury especially in the setting of aggressive blood product infusion for hemorrhagic shock. We will continue with 6 to 8 mL per predicted body weight and plateau pressure less than 30 cm of water. Once shock is resolved and propofol window off, we will continue with daily sedation vacation and daily weaning trial. We will continue with head of bed elevated to >35 degrees. We will continue with DVT and GI prophylaxis. Once shock resolved, we will switch to conservative fluid management. Patient does have lung mass, which is highly suspicious for lung CA (discussed with Dr. Reed, hematology/oncology on board who think it clinically looks like small cell lung CA; however, tissue diagnosis is pending). Patient may have component of pneumonia and is on broad spectrum antibiotics with ID service following him as well. CARDIOVASCULAR: He is on hemodynamic support with Levophed 6 mcg per minute. If blood pressure continue to be borderline, I will consider adding vasopressin 0.03 units per minute. Phenylephrine was stopped. Patient is still somewhat dry on physical exam and bedside ultrasound evaluation. We will continue with fluid resuscitation. HEME/GI: Patient has liver masses and status post liver biopsy, which probably (until proven otherwise) complicated by intraperitoneal bleed. We will proceed with massive transfusion protocol avoiding dilutional coagulopathy, hyperthermia, and acidosis. We will continue with GI prophylaxis. RENAL: Patient has acute kidney injury as a part of multiorgan dysfunction syndrome due to hemorrhagic shock. Fluid resuscitation is ongoing. Renal consult will be obtained as well. ID: Patient has leukocytosis and infectious component/pneumonia cannot be ruled out at present time. He is on broad spectrum antibiotics. Septic workup is ongoing. ID service is following him as well. ENDOCRINE: We will maintain blood glucose within 140 to 180 range according to NICE-SUGAR trial. We will avoid hypoglycemia. Addendum: CT abdo/pelvis: large intra/retro peritoneal hematoma Discussed prelim with Dr. Olmedo liver biopsy: prelim: poorly differentiated adenoCA, neuroendocrine markers are pending. ccm time 40 min Lyle Nicole MD MTDD
--- NOTE | 2017-05-04 14:55 | CON ---
DATE: 05/04/2017 HISTORY OF PRESENT ILLNESS: The patient is a 71-year-old male, who presents with hypotension and shock after liver biopsy. The patient's past medical history is notable for previous ischemic dilated cardiomyopathy with an ejection fraction of 40%. The patient has documented previous coronary artery disease including a borderline left main stenosis, circumflex disease as well as a stent in the RCA. The patient's past medical history is notable also for hypertension and hypercholesterolemia. Social history and review of systems unavailable. PHYSICAL EXAMINATION: GENERAL: The patient is intubated and sedated. VITAL SIGNS: Blood pressure 70 systolic on pressors, heart rate is in the 90s. NECK: Negative JVD. LUNGS: No rales noted. HEART: Reveal S1, S2 with a short systolic ejection murmur. EXTREMITIES: Without edema. EKG shows normal sinus rhythm with an old inferior wall myocardial infarction. LABORATORY DATA: BUN and creatinine is 27/2.3, hemoglobin is 7.1. IMPRESSION: 1. Status post shocks, likely due to acute bleed post biopsy. 2. Ischemic dilated cardiomyopathy. 3. Multivessel coronary artery disease. 4. Old inferior wall myocardial infarction. 5. Chronic obstructive pulmonary disease. 6. Lung and liver mass. Given these findings, the patient needs to be aggressively treated with the packed red blood cells on IV fluid resuscitation. Pressors will be a temporary measure. We will obtain an echocardiogram to lead to evaluate LV function. Julian Aldridge MD
--- NOTE | 2017-05-04 15:02 | CP.PCM.PN ---
<Yevgeniy Valderrama - Last Filed: 05/04/17 18:56> Subjective - Date & Time of Evaluation Date of Evaluation: 05/04/17 Time of Evaluation: 10:00 - Subjective Subjective: Patient seen and examined at bedside in ICU. Family present at bedside. Patient is currently intubated, on mechanical ventilation, and sedated. ROS could not be attained at this time. Objective - Vital Signs/Intake and Output Vital Signs (last 24 hours): Temp Pulse Resp BP Pulse Ox 97.9 F 77 33 H 117/76 100 05/03/17 13:24 05/04/17 01:40 05/04/17 07:10 05/04/17 01:40 05/04/17 07:10 Intake and Output: 05/04/17 05/04/17 06:59 18:59 Intake Total 1221 248 Balance 1221 248 - Medications Medications: Current Medications Acetaminophen (Tylenol 325mg Tab) 650 mg PO Q4 PRN PRN Reason: Pain, Mild (1-3) Arformoterol Tartrate (Brovana) 15 mcg IH [id number] [facility] Last Admin: 05/04/17 07:05 Dose: 15 mcg Atovaquone (Mepron) 750 mg PO BID [facility] Stop: 05/11/17 19:26 Last Admin: 05/04/17 10:35 Dose: Not Given Budesonide (Pulmicort Respules) 0.5 mg IH [id number] [facility] Last Admin: 05/04/17 07:05 Dose: 0.5 mg Cholecalciferol (Vitamin D) 2,000 iu PO DAILY [facility] Last Admin: 05/04/17 14:05 Dose: Not Given Famotidine (Pepcid) 40 mg PO HS [facility] Last Admin: 05/03/17 21:38 Dose: Not Given Furosemide (Lasix) 20 mg PO DAILY [facility] Last Admin: 05/03/17 09:42 Dose: 20 mg Doxycycline Hyclate 100 mg/ (Sodium Chloride) 100 mls @ 100 mls/hr IVPB Q12 AAYUSH PRN Reason: Protocol Stop: 05/11/17 22:01 Last Admin: 05/04/17 10:36 Dose: 100 mls/hr Propofol (Diprivan) 1,000 mg in 100 mls @ 3.443 mls/hr IV .Q24H PRN; Protocol; 5 MCG/KG/MIN PRN Reason: TITRATE PER MD ORDER Last Admin: 05/04/17 10:26 Dose: 35 mcg/kg/min, 24.099 mls/hr NOREPINEPHRINE BIT/0.9 % NACL (Levophed 4 Mg/ 250 Ml Ns Premixed) 4 mg in 250 mls @ 15 mls/hr IV .[id number] PRN; Protocol; 4 MCG/MIN PRN Reason: TITRATE PER MD ORDER Last Titration: 05/04/17 14:15 Dose: 4 mcg/min, 15 mls/hr Vasopressin 20 units/ Dextrose 101 mls @ 9.09 mls/hr IV .[id number] AAYUSH; 0.03 U/MIN PRN Reason: Protocol Meropenem 1g/NS 100mL IVPB (Meropenem 1g/Ns 100ml Ivpb) 1 gm in 100 mls @ 100 mls/hr IVPB Q12 AAYUSH PRN Reason: Protocol Stop: 05/13/17 10:01 Last Admin: 05/04/17 10:30 Dose: 100 mls/hr Sodium Bicarbonate 100 meq/ (Sodium Chloride) 1,100 mls @ 125 mls/hr IV .Q8H48M AAYUSH Levalbuterol HCl (Xopenex) 1.25 mg IH [id number] [facility] Last Admin: 05/04/17 13:06 Dose: 1.25 mg Lisinopril (Zestril) 10 mg PO QAM [facility] Last Admin: 05/03/17 09:43 Dose: 10 mg Metoprolol Tartrate (Lopressor) 25 mg PO BID [facility] Last Admin: 05/03/17 09:43 Dose: 25 mg Oxycodone/Acetaminophen (Percocet 5/325 Mg Tab) 1 tab PO Q4H PRN PRN Reason: Pain, moderate (4-7) Stop: 05/06/17 12:43 Tramadol HCl (Ultram) 50 mg PO Q4H PRN PRN Reason: Pain, moderate (4-7) Last Admin: 05/03/17 03:16 Dose: 50 mg Vancomycin HCl (Vancocin 25 Mg/Ml (Oral Use)) 125 mg PO QID AAYUSH PRN Reason: Protocol Last Admin: 05/04/17 14:04 Dose: Not Given - Labs Labs: 05/04/17 06:00 05/04/17 04:40 PT 16.2 Seconds (9.9-11.8) H 05/03/17 18:18 INR 1.50 (0.93-1.08) H 05/03/17 18:18 APTT 47.4 Seconds (23.7-30.8) H 05/03/17 18:18 - Additional Findings Additional findings: - Constitutional Appears: intubated and sedated - Head Exam Head Exam: ATRAUMATIC, NORMOCEPHALIC - Eye Exam Additional comments: Pale conjuctiva - ENT Exam ENT Exam: Mucous Membranes Dry - Respiratory Exam Respiratory Exam: Mechanical breath sounds present bilaterally - Cardiovascular Exam Cardiovascular Exam: RRR, +s1, +s2 - GI/Abdominal Exam GI & Abdominal Exam: Soft - Extremities Exam Extremities exam: Negative for: calf tenderness, pedal edema - Neurological Exam Neurological exam: sedated - Skin Skin Exam: Pallor, Pallor Assessment and Plan - Assessment and Plan (Free Text) Assessment: Patient is a 71 yo male with PMH of emphysema, CHF, previous IN s/p 2 cardiac stents, osteoporosis, arthritis, HTN, HLD, GERD and colitis is being admitted for evaluation and treatment of sepsis likely secondary to pneumonia. After having IR biopsy completed patient became cardiovasculary compromised and experienced a brief PEA arrest. After one round of chest compressions and one Epinephrine 1mg ROSC was achieved. He was transferred to the ICU for critical care management. Hemorrhagic Shock; Anemia details- CT Abd/Pelvis reviewed moderate amount of intraperitoneal blood in the pelvis and around the liver - patient improved to 10.2 s/p a total of 8 units of pRBCs, 5 FFP, and 3 Platelets - vasopressors and intubation as per critical care team - monitor closely via daily CBC - Cardio consulted, appreciate all recommendations - ID consulted- continue atovaquone, doxy, meropenem, and vancomycin - Surgery consulted, no surgical intervention at this time - IR consulted- appreciate recs, consider angiography with potential embolization Lung Mass, Liver Masses details- lung mass noted, heterogeneous densities noted in the liver, patient is s/p IR guided biopsies - pathology report pending - hematology/oncology consulted-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 Jimenez/Mike for antibiotic recs - continue atovaquone, doxy, meropenem, and vancomycin as per ID - continue IVF DANNIELLE - nephrology consulted, appreciate recs- continue half normal saline @ 125 - monitor BUN/Cr and urine output closely Acute on Chronic Emphysema Exacerbation, Dyspnea - patient is intubated and on mechanical ventilation - brovana, pulmicort, and xopenex ordered Acute Exacerbation of CHF Details- BNP on admission is 970 Details- ECHO from 12/15/16 reviewed shows EF of 40% - Strict I/Os - Daily weight Transaminitis, Hyperbilirubinemia - GI consulted appreciate recs - Will obtain Autoimmune workup for elevated LFTs - Shock Liver secondary to hypotensive episode, will continue to trend LFTs Thrombocytopenia Details- platelet count was 45 (364 on 12/16/16), likely secondary to liver mets - currently 80 - monitor closely via CBC Diarrhea - C. Diff toxin and antigen Deconditioned State - PT evaluation and treatment pending clinical course - OT evaluation and treatment pending clinical course History of IN details- 2 stents placed (2008) - hold Plavix 75 mg once daily and Aspirin 81 mg once daily due to thrombocytopenia History of HTN - Hold Metoprolol Tartrate 25 mg BID, Lisinopril 10 mg once daily as patient is currently on pressors History of HLD - hold Simvastatin 40 mg once daily due to elevated LFTs on admission History of Osteoporosis - Continue Vitamin D 2000 mg once daily History of Arthritis - Hold Tramadol as patient is on pressors History of GERD/ Colitis - Continue Ranitidine and protonix - Continue Linzess PRN PPX - Ranitidine, protonix, and SCD Advance Directive - palliative care consulted- patients family has made patient DNR - family is hopeful that intubation/mechanical ventilation is temporary, They do not desire prison mechanical ventilation. Patient case/plan discussed with and approved by attending physician, Dr. Mcarthur <Cleveland Mcarthur - Last Filed: 06/17/17 16:46> Objective - Vital Signs/Intake and Output Vital Signs (last 24 hours): Temp Pulse Resp BP Pulse Ox 97.9 F 44 L 19 60/40 L 66 L 05/03/17 13:24 05/05/17 03:46 05/05/17 03:46 05/05/17 02:47 05/05/17 03:40 - Labs Labs: 05/04/17 15:30 05/04/17 15:30 PT 16.2 Seconds (9.9-11.8) H 05/03/17 18:18 INR 1.50 (0.93-1.08) H 05/03/17 18:18 APTT 47.4 Seconds (23.7-30.8) H 05/03/17 18:18 Attending/Attestation - Attestation I have personally seen and examined this patient.: Yes I have fully participated in the care of the patient.: Yes I have reviewed all pertinent clinical information, including history, physical exam and plan: Yes Notes (Text): 06/17/17 16:46 Medical record note made by the resident after discussion with my direction and input after the patient was personally seen and examined by me. I have reviewed the chart and agree that the record accurately reflects by personal performance of the history, physical exam, data review, and medical decision-making, in the course for the patient. I have also personally directed the plan of care.
[2017-05-04 15:40] LABS: VENOUS BLOOD GAS BASE EXCESS -10.8 mmol/L (0.0-2.0); VENOUS BLOOD PH 7.26 (7.32-7.43)
[2017-05-04 15:52] LABS: HEMATOCRIT 29.3 % (42.0-52.0); MEAN CELL VOLUME 88.5 fl (80.0-105.0); MEAN CORPUSCULAR HEMOGLOBIN 30.8 pg (25.0-35.0); MEAN CORPUSCULAR HGB CONC 34.8 g/dl (31.0-37.0); MEAN PLATELET VOLUME 10.3 fl (7.0-11.0); RED CELL DISTRIBUTION WIDTH 16.1 % (11.5-14.5); WHITE BLOOD COUNT 20.7 10^3/ul (4.5-11.0)
[2017-05-04 15:53] LABS: POTASSIUM 4.9 mmol/L (3.6-5.0)
[2017-05-04] MEDS ORDERED: Pantoprazole 40mg/100ml IVPB 40 MG/100 ML BAG IVPB SCH (16:30)
--- NOTE | 2017-05-04 17:26 | CP.PCM.CON ---
History of Present Illness - History of Present Illness History of Present Illness: 71 yo M w/ pmh of htn, CAD s/p stents, CHF, emphysema and ischemic colitis, initiall presented 2 days ago to ED with new onset of shortness of breath and R sided abdominal pain; was initally admitted with SIRS/sepsis from likely HCAP with tachycardia, leukocytosis and marked lactic acidosis; also found to have transaminitis; nephrology now being consulted for acute renal failure; Patient underwent non-contrast CT of chest/abd/pelvis that revealed large L lung mass and anterior chest wall mass with extensive mediastinal adenopathy as well as liver lesions thought to be consistent with metastatic disease; Patient underwent CT guided liver biopsy yesterday; he subsequently became hemodynamically unstable with severe hypotension and suffered brief cardiac arrest before ROSC achieved; patient has since been transfused multiple units prbc and remains intubated/sedated and on vasopressor support; Urine output has declined precipitously with renal function worsening; patient has since been made DNR today; Review of Systems - Review of Systems Systems not reviewed;Unavailable: Intubated Past Patient History - Infectious Disease Hx of Infectious Diseases: None - Past Medical History & Family History Past Medical History?: Yes Pertinent Family History: stroke - Past Social History Smoking Status: Former Smoker - CARDIAC Hx Cardiac Disorders: Yes Hx Cardia Arrhythmia: Yes Hx Congestive Heart Failure: Yes Hx Hypercholesterolemia: Yes Hx Hypertension: Yes Hx Pacemaker: No Hx Peripheral Edema: Yes (+1 pitting ble) - PULMONARY Hx Respiratory Disorders: Yes (chronic cough) Hx Chronic Obstructive Pulmonary Disease (COPD): Yes - NEUROLOGICAL Hx Neurological Disorder: No Hx Alzheimer's Disease: No HX Cerebrovascular Accident: No Hx Dementia: No Hx Dizziness: No Hx Meningitis: No Hx Migraine: No Hx Parkinson's Disease: No Hx Seizures: No Hx Transient Ischemic Attacks (TIA): No - HEENT Hx Cataracts: Yes (surgery b/l) - RENAL Hx Chronic Kidney Disease: Yes - ENDOCRINE/METABOLIC Hx Endocrine Disorders: No - HEMATOLOGICAL/ONCOLOGICAL Hx Blood Disorders: (blood transfusion from ischemic colitis) - INTEGUMENTARY Hx Dermatological Problems: No Hx Basil Cell: No Hx Eczema: No Hx Melanoma: No Hx Psoriasis: No Hx Squamous Cell: No Other/Comment: multiple skin discolorations b/l arms - MUSCULOSKELETAL/RHEUMATOLOGICAL Hx Falls: No - GASTROINTESTINAL Other/Comment: ischemic colitis, colon polyp removed, hiatal hernia - PSYCHIATRIC Hx Substance Use: No - SURGICAL HISTORY Hx Surgeries: Yes Hx Cardiac Catheterization: Yes Hx Coronary Stent: Yes - ANESTHESIA Hx Anesthesia Reactions: Yes (HYPOTENSIVE AT END OF PROCEDURE IN THE PAST) Hx Malignant Hyperthermia: No Meds Allergies/Adverse Reactions: Allergies Allergy/AdvReac Type Severity Reaction Status Date / Time No Known Allergies Allergy Verified 05/02/17 10:10 - Medications Medications: Current Medications Acetaminophen (Tylenol 325mg Tab) 650 mg PO Q4 PRN PRN Reason: Pain, Mild (1-3) Arformoterol Tartrate (Brovana) 15 mcg IH [id number] [facility] Last Admin: 05/04/17 07:05 Dose: 15 mcg Atovaquone (Mepron) 750 mg PO BID [facility] Stop: 05/11/17 19:26 Last Admin: 05/04/17 10:35 Dose: Not Given Budesonide (Pulmicort Respules) 0.5 mg IH [id number] [facility] Last Admin: 05/04/17 07:05 Dose: 0.5 mg Cholecalciferol (Vitamin D) 2,000 iu PO DAILY [facility] Last Admin: 05/04/17 14:05 Dose: Not Given Famotidine (Pepcid) 20 mg IVP BID [facility] Furosemide (Lasix) 20 mg PO DAILY [facility] Last Admin: 05/03/17 09:42 Dose: 20 mg Doxycycline Hyclate 100 mg/ (Sodium Chloride) 100 mls @ 100 mls/hr IVPB Q12 AAYUSH PRN Reason: Protocol Stop: 05/11/17 22:01 Last Admin: 05/04/17 10:36 Dose: 100 mls/hr Propofol (Diprivan) 1,000 mg in 100 mls @ 3.443 mls/hr IV .Q24H PRN; Protocol; 5 MCG/KG/MIN PRN Reason: TITRATE PER MD ORDER Last Admin: 05/04/17 10:26 Dose: 35 mcg/kg/min, 24.099 mls/hr NOREPINEPHRINE BIT/0.9 % NACL (Levophed 4 Mg/ 250 Ml Ns Premixed) 4 mg in 250 mls @ 15 mls/hr IV .[id number] PRN; Protocol; 4 MCG/MIN PRN Reason: TITRATE PER MD ORDER Last Titration: 05/04/17 14:15 Dose: 4 mcg/min, 15 mls/hr Vasopressin 20 units/ Dextrose 101 mls @ 9.09 mls/hr IV .[id number] AAYUSH; 0.03 U/MIN PRN Reason: Protocol Meropenem 1g/NS 100mL IVPB (Meropenem 1g/Ns 100ml Ivpb) 1 gm in 100 mls @ 100 mls/hr IVPB Q12 AAYUSH PRN Reason: Protocol Stop: 05/13/17 10:01 Last Admin: 05/04/17 10:30 Dose: 100 mls/hr Sodium Bicarbonate 100 meq/ (Sodium Chloride) 1,100 mls @ 125 mls/hr IV .[id number] AAYUSH Pantoprazole Sodium (Protonix 40mg Ivpb) 40 mg in 100 mls @ 20 mls/hr IVPB .Q5H AAYUSH Levalbuterol HCl (Xopenex) 1.25 mg IH [id number] [facility] Last Admin: 05/04/17 13:06 Dose: 1.25 mg Lisinopril (Zestril) 10 mg PO QAM [facility] Last Admin: 05/03/17 09:43 Dose: 10 mg Metoprolol Tartrate (Lopressor) 25 mg PO BID [facility] Last Admin: 05/03/17 09:43 Dose: 25 mg Oxycodone/Acetaminophen (Percocet 5/325 Mg Tab) 1 tab PO Q4H PRN PRN Reason: Pain, moderate (4-7) Stop: 05/06/17 12:43 Tramadol HCl (Ultram) 50 mg PO Q4H PRN PRN Reason: Pain, moderate (4-7) Last Admin: 05/03/17 03:16 Dose: 50 mg Vancomycin HCl (Vancocin 25 Mg/Ml (Oral Use)) 125 mg PO QID [facility] PRN Reason: Protocol Last Admin: 05/04/17 14:04 Dose: Not Given Physical Exam - Constitutional Additional comments: sedated; tachypeic; - Head Exam Head Exam: NORMAL INSPECTION - Eye Exam Eye Exam: Normal appearance - ENT Exam ENT Exam: Mucous Membranes Moist - Neck Exam Neck exam: Negative for: Lymphadenopathy Additional comments: intubated; - Respiratory Exam Respiratory Exam: Clear to Auscultation Bilateral. absent: NORMAL BREATHING PATTERN - Cardiovascular Exam Cardiovascular Exam: Tachycardia, +S1, +S2 - GI/Abdominal Exam GI & Abdominal Exam: Soft, Tenderness Additional comments: RUQ hematoma; - Exam Additional comments: quinn in place; - Extremities Exam Additional comments: cool distal ext; unable to palpate DP pulses; - Neurological Exam Additional comments: sedated; responding to noxious stimuli; - Skin Skin Exam: Intact Results - Vital Signs Recent Vital Signs: Last Vital Signs Temp 97.9 F 05/03/17 13:24 Pulse 77 05/04/17 01:40 Resp 33 H 05/04/17 07:10 BP 117/76 05/04/17 01:40 Pulse Ox 100 05/04/17 07:10 - Labs Result Diagrams: 05/04/17 15:30 05/04/17 15:30 Labs: Laboratory Results - last 24 hr 05/03/17 05/03/17 05/03/17 09:45 14:05 14:47 WBC RBC Hgb Hct MCV MCH MCHC RDW Plt Count MPV Gran % Lymph % (Auto) [place] % (Auto) Eos % (Auto) Baso % (Auto) Gran # Lymph # [place] # Eos # Baso # Neutrophils % (Manual) Band Neutrophils % Lymphocytes % (Manual) Monocytes % (Manual) Eosinophils % (Manual) Myelocytes % Nucleated RBC % Platelet Evaluation PT INR APTT pCO2 pO2 HCO3 ABG pH ABG Total CO2 ABG O2 Saturation ABG Base Excess ABG Potassium VBG pH VBG pCO2 VBG HCO3 VBG Total CO2 VBG O2 Sat (Calc) VBG Base Excess VBG Potassium Sodium Chloride Glucose Lactate FiO2 Potassium Carbon Dioxide Anion Gap BUN Creatinine Est GFR ( Amer) Est GFR (Non-Af Amer) POC Glucose (mg/dL) 262 H Random Glucose Calcium Phosphorus Magnesium Total Bilirubin AST ALT Alkaline Phosphatase Troponin I Total Protein Albumin Globulin Albumin/Globulin Ratio Arterial Blood Potassium Venous Blood Potassium Ur Random Sodium Ur Random Urea Nitrogn Stool Occult Blood Positive H Blood Type A POSITIVE Antibody Screen Negative Crossmatch See Detail BBK History Checked Patient has bt 05/03/17 05/03/17 05/03/17 17:10 18:18 18:18 WBC 21.5 H D RBC 3.14 L Hgb 9.6 L D Hct 29.9 L MCV 95.2 MCH 30.6 MCHC 32.1 RDW 14.0 Plt Count 82 L MPV 9.9 Gran % 80.8 H Lymph % (Auto) 12.0 L [place] % (Auto) 5.2 Eos % (Auto) 0.9 L Baso % (Auto) 1.1 Gran # 17.37 H Lymph # 2.6 [place] # 1.1 H Eos # 0.2 Baso # 0.23 Neutrophils % (Manual) 72 H Band Neutrophils % 13 H* Lymphocytes % (Manual) 8 L Monocytes % (Manual) 3 Eosinophils % (Manual) 1 Myelocytes % 3 Nucleated RBC % 2 Platelet Evaluation Low PT 16.2 H INR 1.50 H APTT 47.4 H pCO2 pO2 HCO3 ABG pH ABG Total CO2 ABG O2 Saturation ABG Base Excess ABG Potassium VBG pH VBG pCO2 VBG HCO3 VBG Total CO2 VBG O2 Sat (Calc) VBG Base Excess VBG Potassium Sodium 140 Chloride 105 Glucose Lactate FiO2 Potassium 5.1 H Carbon Dioxide 13 L Anion Gap 27 H BUN 21 Creatinine 1.8 H Est GFR ( Amer) 45 Est GFR (Non-Af Amer) 37 POC Glucose (mg/dL) Random Glucose 247 H Calcium 8.4 Phosphorus 8.4 H Magnesium 2.5 H Total Bilirubin 1.2 AST 462 H ALT 251 H Alkaline Phosphatase 87 Troponin I 0.05 D Total Protein 5.0 L Albumin 2.8 L Globulin 2.3 Albumin/Globulin Ratio 1.2 Arterial Blood Potassium Venous Blood Potassium Ur Random Sodium Ur Random Urea Nitrogn Stool Occult Blood Blood Type Antibody Screen Crossmatch BBK History Checked 05/03/17 05/03/17 05/04/17 18:18 19:02 04:40 WBC 21.4 H 24.0 H RBC 3.09 L 2.21 L Hgb 9.4 L 7.0 L D Hct 29.1 L 20.2 L* MCV 94.2 91.4 MCH 30.4 31.7 MCHC 32.3 34.7 RDW 14.1 15.4 H Plt Count 77 L 117 L MPV 9.9 10.5 Gran % 84.2 H 82.8 H Lymph % (Auto) 10.4 L 9.4 L [place] % (Auto) 4.2 7.5 H Eos % (Auto) 0.7 L 0.0 L Baso % (Auto) 0.5 0.3 Gran # 17.97 H 19.84 H Lymph # 2.2 2.3 [place] # 0.9 H 1.8 H Eos # 0.2 0.0 Baso # 0.10 0.07 Neutrophils % (Manual) Band Neutrophils % Lymphocytes % (Manual) Monocytes % (Manual) Eosinophils % (Manual) Myelocytes % Nucleated RBC % Platelet Evaluation PT INR APTT pCO2 pO2 77 H HCO3 ABG pH ABG Total CO2 ABG O2 Saturation ABG Base Excess ABG Potassium VBG pH 7.01 L* VBG pCO2 45.0 VBG HCO3 11.4 L VBG Total CO2 12.8 L VBG O2 Sat (Calc) 95.4 H VBG Base Excess -19.4 L VBG Potassium 5.3 H Sodium 139.0 Chloride 104.0 Glucose 278 H Lactate 15.5 H* FiO2 21.0 Potassium Carbon Dioxide Anion Gap BUN Creatinine Est GFR ( Amer) Est GFR (Non-Af Amer) POC Glucose (mg/dL) Random Glucose Calcium Phosphorus Magnesium Total Bilirubin AST ALT Alkaline Phosphatase Troponin I Total Protein Albumin Globulin Albumin/Globulin Ratio Arterial Blood Potassium Venous Blood Potassium 5.3 H Ur Random Sodium Ur Random Urea Nitrogn Stool Occult Blood Blood Type Antibody Screen Crossmatch BBK History Checked 05/04/17 05/04/17 05/04/17 04:40 05:15 06:00 WBC RBC Hgb 7.1 L Hct 20.2 L* MCV MCH MCHC RDW Plt Count MPV Gran % Lymph % (Auto) [place] % (Auto) Eos % (Auto) Baso % (Auto) Gran # Lymph # [place] # Eos # Baso # Neutrophils % (Manual) Band Neutrophils % Lymphocytes % (Manual) Monocytes % (Manual) Eosinophils % (Manual) Myelocytes % Nucleated RBC % Platelet Evaluation PT INR APTT pCO2 27 L pO2 375.0 H HCO3 13.6 L ABG pH 7.31 L ABG Total CO2 14.4 L ABG O2 Saturation 100.4 H ABG Base Excess -11.0 L ABG Potassium 5.0 VBG pH VBG pCO2 VBG HCO3 VBG Total CO2 VBG O2 Sat (Calc) VBG Base Excess VBG Potassium Sodium 141 142.0 Chloride 106 111.0 H Glucose 117 H Lactate 10.0 H* FiO2 100.0 Potassium 5.3 H Carbon Dioxide 15 L Anion Gap 25 H BUN 27 H Creatinine 2.3 H Est GFR ( Amer) 34 Est GFR (Non-Af Amer) 28 POC Glucose (mg/dL) Random Glucose 116 H Calcium 8.3 L Phosphorus 7.9 H Magnesium 2.4 H Total Bilirubin 1.9 H AST 2264 H ALT 820 H Alkaline Phosphatase 192 H Troponin I Total Protein 5.6 L Albumin 3.2 Globulin 2.4 Albumin/Globulin Ratio 1.3 Arterial Blood Potassium 5.0 Venous Blood Potassium Ur Random Sodium Ur Random Urea Nitrogn Stool Occult Blood Blood Type Antibody Screen Crossmatch BBK History Checked 05/04/17 05/04/17 05/04/17 08: 10:00 10:10 WBC RBC Hgb Hct MCV MCH MCHC RDW Plt Count MPV Gran % Lymph % (Auto) [place] % (Auto) Eos % (Auto) Baso % (Auto) Gran # Lymph # [place] # Eos # Baso # Neutrophils % (Manual) Band Neutrophils % Lymphocytes % (Manual) Monocytes % (Manual) Eosinophils % (Manual) Myelocytes % Nucleated RBC % Platelet Evaluation PT INR APTT pCO2 pO2 49 HCO3 ABG pH ABG Total CO2 ABG O2 Saturation ABG Base Excess ABG Potassium VBG pH 7.20 L VBG pCO2 36.0 L VBG HCO3 14.1 L VBG Total CO2 15.2 L VBG O2 Sat (Calc) 89.6 H VBG Base Excess -13.1 L VBG Potassium 5.4 H Sodium 142.0 Chloride 109.0 H Glucose 93 Lactate 10.7 H* FiO2 21.0 Potassium Carbon Dioxide Anion Gap BUN Creatinine Est GFR ( Amer) Est GFR (Non-Af Amer) POC Glucose (mg/dL) 101 Random Glucose Calcium Phosphorus Magnesium Total Bilirubin AST ALT Alkaline Phosphatase Troponin I 0.11 D Total Protein Albumin Globulin Albumin/Globulin Ratio Arterial Blood Potassium Venous Blood Potassium 5.4 H Ur Random Sodium Ur Random Urea Nitrogn Stool Occult Blood Blood Type Antibody Screen Crossmatch BBK History Checked 05/04/17 05/04/17 05/04/17 11:23 14:41 14:41 WBC RBC Hgb Hct MCV MCH MCHC RDW Plt Count MPV Gran % Lymph % (Auto) [place] % (Auto) Eos % (Auto) Baso % (Auto) Gran # Lymph # [place] # Eos # Baso # Neutrophils % (Manual) Band Neutrophils % Lymphocytes % (Manual) Monocytes % (Manual) Eosinophils % (Manual) Myelocytes % Nucleated RBC % Platelet Evaluation PT INR APTT pCO2 pO2 HCO3 ABG pH ABG Total CO2 ABG O2 Saturation ABG Base Excess ABG Potassium VBG pH VBG pCO2 VBG HCO3 VBG Total CO2 VBG O2 Sat (Calc) VBG Base Excess VBG Potassium Sodium Chloride Glucose Lactate FiO2 Potassium Carbon Dioxide Anion Gap BUN Creatinine Est GFR ( Amer) Est GFR (Non-Af Amer) POC Glucose (mg/dL) 102 Random Glucose Calcium Phosphorus Magnesium Total Bilirubin AST ALT Alkaline Phosphatase Troponin I Total Protein Albumin Globulin Albumin/Globulin Ratio Arterial Blood Potassium Venous Blood Potassium Ur Random Sodium 107 Ur Random Urea Nitrogn 469 Stool Occult Blood Blood Type Antibody Screen Crossmatch BBK History Checked 05/04/17 05/04/17 05/04/17 15:30 15:30 15:30 WBC 20.7 H RBC 3.31 L Hgb 10.2 L D Hct 29.3 L MCV 88.5 MCH 30.8 MCHC 34.8 RDW 16.1 H Plt Count 80 L MPV 10.3 Gran % Lymph % (Auto) [place] % (Auto) Eos % (Auto) Baso % (Auto) Gran # Lymph # [place] # Eos # Baso # Neutrophils % (Manual) Band Neutrophils % Lymphocytes % (Manual) Monocytes % (Manual) Eosinophils % (Manual) Myelocytes % Nucleated RBC % Platelet Evaluation PT INR APTT pCO2 pO2 63 H HCO3 ABG pH ABG Total CO2 ABG O2 Saturation ABG Base Excess ABG Potassium VBG pH 7.26 L VBG pCO2 34.0 L VBG HCO3 15.3 L VBG Total CO2 16.3 L VBG O2 Sat (Calc) 95.7 H VBG Base Excess -10.8 L VBG Potassium 5.1 Sodium 142 142.0 Chloride 108 H 107.0 Glucose 116 H Lactate 8.5 H* FiO2 21.0 Potassium 4.9 Carbon Dioxide 15 L Anion Gap 24 H BUN 34 H Creatinine 2.8 H Est GFR ( Amer) 27 Est GFR (Non-Af Amer) 22 POC Glucose (mg/dL) Random Glucose 103 Calcium 8.0 L Phosphorus Magnesium Total Bilirubin AST ALT Alkaline Phosphatase Troponin I Total Protein Albumin Globulin Albumin/Globulin Ratio Arterial Blood Potassium Venous Blood Potassium 5.1 Ur Random Sodium Ur Random Urea Nitrogn Stool Occult Blood Blood Type Antibody Screen Crossmatch BBK History Checked - Imaging and Cardiology CT scan - abdomen Status: Image reviewed by me Additional comment: Blood in peritoneal cavity; Assessment & Plan (1) Acute renal failure Assessment and Plan: In the setting of shock, clinically consistent with ATN; oligo-anuric renal failure; still mildly hypotensive earlier today, continuing to receive volume resuscitation with both crystalloids and blood products; relatively stable FIO2 requirement; mild hyperkalemia is improved; metabolic acidosis being managed with bicarb drip; No urgent indication to initiate HD but will likely be needed within next 24 hrs should family decide to pursue all medical management options; Status: Acute (2) Shock Assessment and Plan: Appears to be hemorrhagic shock due to intra-abdominal bleeding; getting volume resuscitate and on vasopressor support; continue same; critical care team monitoring for need for arterial embolization to prevent further bleeding; DANNIELLE should not preclude any such procedure in order to stabilize patient; Status: Acute (3) Lactic acidosis Assessment and Plan: Seen even before liver biopsy, likely indicative of liver dysfunction in the setting of possible metastatic lesions; tachypneic this morning; continue bicarb drip with 1/2NS w/ 100 meq sodium bicarbonate at 125 cc/hr (unable to make isotonic drip due to sodium bicarb shortage); Status: Acute (4) Hyperkalemia Assessment and Plan: Slightly improved but will again worsen with patient being anuric; will need to discuss with family about imminent need to initiate HD; Status: Acute (5) Sepsis Assessment and Plan: Started on antibiotics for possible HCAP; need to ensure antibiotics being dosed for CrCl < 10 ml/min; Status: Acute - Assessment and Plan (Free Text) Assessment: Critical care time assessing patient and discussing with primary/critical care team > 35 minutes;
--- NOTE | 2017-05-04 21:02 | CP.PCM.PN ---
Subjective - Date & Time of Evaluation Date of Evaluation: 05/04/17 Time of Evaluation: 19:30 - Subjective Subjective: Overnight Events: -At 7pm (during sign-out from day die welder), the pt's family mentioned their strong desire for terminal extubation this evening due to the pt's very likely poor prognosis (due to probable metastatic small cell lung cancer). -Both Dr. Justin and myself recommended the idea of postponing terminal extubation until tomorrow, after which final pathology of the pt's likely metastatic cancer would be confirmed (as opposed to the current prelim path result). -However, the pt's and daughter both were hesitant to wait until tomorrow because of the pt's poor quality of life regardless of pathological confirmation. -About 30 minutes later, the family (as a whole) firmly decided to terminally extubate the pt this evening "because this is what he (the patient) would want" . -I then had them briefly discuss and confirm their plan with the on-call primary MD via telephone (Dr. Jeronimo) -I also attempted to call the Heme/onco physician on this case (Dr. Reed), so the family could again discuss immediate terminal extubation with him. -However, before I could reach the heme/onc physician, the pt's entire family, adamantly requested that they had made up their mind and did not wish to discuss anything further with any other physician. They felt they had an adequate understanding of his poor prognosis and poor quality of future life. -I again confirmed (with Jolene RADFORD as witness) with the family that although the pt likely did have metastatic cancer, the final confirmed pathology had not yet returned. Again, they reiterated their wish to terminal extubate regardless of preliminary vs final pathology report results. -Consequently, after having the family sign the appropriate paperwork, he was terminally extubated (and started on an hourly dose of IV Morphine for comfort) . -The patient ultimately went into asystolic arrest at around 4am this morning, at which time I pronounced him. -The on-call Primary MD (Dr. Jeronimo) was notifed of the pt's status by the resident physician, this morning, shortly after pronunciation. Objective - Vital Signs/Intake and Output Vital Signs (last 24 hours): Temp Pulse Resp BP Pulse Ox 97.9 F 108 H 33 H 104/37 L 95 08/29/17 13:24 05/04/17 18:42 05/04/17 07:10 05/04/17 18:42 05/04/17 18:42 Intake and Output: 05/04/17 05/05/17 18:59 06:59 Intake Total 3130 Output Total 30 Balance 3100 - Medications Medications: Current Medications Acetaminophen (Tylenol 325mg Tab) 650 mg PO Q4 PRN PRN Reason: Pain, Mild (1-3) Arformoterol Tartrate (Brovana) 15 mcg IH [id number] [facility] Last Admin: 05/04/17 19:40 Dose: 15 mcg Atovaquone (Mepron) 750 mg PO BID [facility] Stop: 05/11/17 19:26 Last Admin: 05/04/17 17:46 Dose: Not Given Budesonide (Pulmicort Respules) 0.5 mg IH [id number] [facility] Last Admin: 05/04/17 19:41 Dose: 0.5 mg Cholecalciferol (Vitamin D) 2,000 iu PO DAILY [facility] Last Admin: 05/04/17 14:05 Dose: Not Given Famotidine (Pepcid) 20 mg IVP BID [facility] Last Admin: 05/04/17 17:53 Dose: Not Given Furosemide (Lasix) 20 mg PO DAILY [facility] Last Admin: 05/03/17 09:42 Dose: 20 mg Doxycycline Hyclate 100 mg/ (Sodium Chloride) 100 mls @ 100 mls/hr IVPB Q12 AAYUSH PRN Reason: Protocol Stop: 05/11/17 22:01 Last Admin: 05/04/17 10:36 Dose: 100 mls/hr Propofol (Diprivan) 1,000 mg in 100 mls @ 3.443 mls/hr IV .Q24H PRN; Protocol; 5 MCG/KG/MIN PRN Reason: TITRATE PER MD ORDER Last Admin: 05/04/17 10:26 Dose: 35 mcg/kg/min, 24.099 mls/hr NOREPINEPHRINE BIT/0.9 % NACL (Levophed 4 Mg/ 250 Ml Ns Premixed) 4 mg in 250 mls @ 15 mls/hr IV .[id number] PRN; Protocol; 4 MCG/MIN PRN Reason: TITRATE PER MD ORDER Last Titration: 05/04/17 14:15 Dose: 4 mcg/min, 15 mls/hr Vasopressin 20 units/ Dextrose 101 mls @ 9.09 mls/hr IV .Q11H7M AAYUSH; 0.03 U/MIN PRN Reason: Protocol Last Admin: 05/04/17 20:16 Dose: Not Given Meropenem 1g/NS 100mL IVPB (Meropenem 1g/Ns 100ml Ivpb) 1 gm in 100 mls @ 100 mls/hr IVPB Q12 AAYUSH PRN Reason: Protocol Stop: 05/13/17 10:01 Last Admin: 05/04/17 10:30 Dose: 100 mls/hr Sodium Bicarbonate 100 meq/ (Sodium Chloride) 1,100 mls @ 125 mls/hr IV .[id number] AAYUSH Pantoprazole Sodium (Protonix 40mg Ivpb) 40 mg in 100 mls @ 20 mls/hr IVPB .Q5H [facility] Last Admin: 05/04/17 17:54 Dose: 20 mls/hr Levalbuterol HCl (Xopenex) 1.25 mg IH [id number] [facility] Last Admin: 05/04/17 19:42 Dose: 1.25 mg Lisinopril (Zestril) 10 mg PO QAM [facility] Last Admin: 05/03/17 09:43 Dose: 10 mg Metoprolol Tartrate (Lopressor) 25 mg PO BID [facility] Last Admin: 05/03/17 09:43 Dose: 25 mg Morphine Sulfate (Morphine) 6 mg IVP Q1H [facility] Oxycodone/Acetaminophen (Percocet 5/325 Mg Tab) 1 tab PO Q4H PRN PRN Reason: Pain, moderate (4-7) Stop: 05/06/17 12:43 Tramadol HCl (Ultram) 50 mg PO Q4H PRN PRN Reason: Pain, moderate (4-7) Last Admin: 05/03/17 03:16 Dose: 50 mg Vancomycin HCl (Vancocin 25 Mg/Ml (Oral Use)) 125 mg PO QID [facility] PRN Reason: Protocol Last Admin: 05/04/17 17:47 Dose: Not Given - Labs Labs: 05/04/17 15:30 05/04/17 15:30 PT 16.2 Seconds (9.9-11.8) H 05/03/17 18:18 INR 1.50 (0.93-1.08) H 05/03/17 18:18 APTT 47.4 Seconds (23.7-30.8) H 05/03/17 18:18
[2017-05-05] MEDS ORDERED: Morphine 4 mg/ml ISec IVP SCH (02:08)
[2017-05-05 05:42] VITALS: BP 60/40; PULSE 44; RESP 19; O2SAT 66
--- NOTE | 2017-05-05 10:07 | CP.PCM.PRO ---
Pronouncement of Note - Clinical Findings Physical Exam: No Response Verbal/Painful Stimuli, Absent Peripheral Pulses{ Carotid & Femoral}, Absent Heart & Breath Sounds, No Pupillary Light Reflex, No Corneal Reflex, Pupils Fixed & Dilated, Absence of Vital Signs - Pronouncement Time Time of Pronouncement of : 03:50 - Notifications Pronouncement Notifications: Family Notified, Atending Notified [employer] Notified: No - [place] [id number] Additional Comments: Terminal Extubation, per request of (i.e- POA)
[2017-05-07 19:20] LABS: LKM-1 Ab (IgG) <=20.0 U (<=20.0)
--- NOTE | 2017-05-11 15:29 | CARD ---
APPROVED REPORT EXAM: Two-dimensional and M-mode echocardiogram with Doppler and color Doppler. INDICATION CARDIOGENIC SHOCK/SEPSIS 2D DIMENSIONS Left Atrium (2D)3.6 (1.6-4.0cm)IVSd1.4 (0.7-1.1cm) LVDd4.8 (3.9-5.9cm)PWd1.2 (0.7-1.1cm) LVDs4.1 (2.5-4.0cm)FS (%) 14.6 % LVEF (%)31.3 (>50%) M-Mode DIMENSIONS Aortic Root3.60 (2.2-3.7cm)Aortic Cusp Exc.1.90 (1.5-2.0cm) Aortic Valve AoV Peak Zapmwpar268.0cm/Jd Peak GR.15mmHg Mitral Valve MV E Bsaqsyon65.5cm/sMV A Dpsgvidm86.0cm/sE/A ratio0.6 TDI E/Lateral E'0.0E/Medial E'0.0 Tricuspid Valve TR Peak Baiymabw460mq/sRAP [id number] Peak Gr.24mmHg LBER30kgWa LEFT VENTRICLE There is mild concentric left ventricular hypertrophy. The systolic function is moderately impaired. RIGHT VENTRICLE The right ventricle is normal size. ATRIA The left atrium is mildly dilated. The right atrium size is normal. AORTIC VALVE The aortic valve is thickened but opens well. MITRAL VALVE The mitral valve is thickened but opens well. TRICUSPID VALVE The tricuspid valve leaflets are thickened , but open well. There is mild tricuspid regurgitation. PULMONIC VALVE The pulmonic valve is not well visualized. PERICARDIAL EFFUSION There is no pericardial effusion. <Conclusion> Mild LVH Moderately decreased LV function Mild TR Mildly elevated pulmonary pressures
[2020-05-03] MEDS ORDERED: Cefepime IV 2 gm in NS 2 GM/100 ML BAG IVPB SCH (06:00)
== END 2017-05-05 03:50 | DRG 871 ==
LOC: ED 09:56 → ERH 12:36 → 2RNO 14:30 → CCU 05-03 15:06
PROVIDERS: ADMIT Internal Medicine; ATTEND Internal Medicine
PROC: 5A1945Z Respiratory Ventilation, 24-96 Consecutive Hours (ICD-10-PCS; 2017-05-03)
PROC: 0BH18EZ Insertion of Endotracheal Airway into Trachea, Via Natural or Artificial Opening Endoscopic (ICD-10-PCS; 2017-05-03)
PROC: 6A551Z2 Pheresis of Platelets, Multiple (ICD-10-PCS; 2017-05-03)
PROC: 30233K1 Transfusion of Nonautologous Frozen Plasma into Peripheral Vein, Percutaneous Approach (ICD-10-PCS; 2017-05-03)
PROC: 30233N1 Transfusion of Nonautologous Red Blood Cells into Peripheral Vein, Percutaneous Approach (ICD-10-PCS; 2017-05-03)
PROC: 3E033XZ Introduction of Vasopressor into Peripheral Vein, Percutaneous Approach (ICD-10-PCS; 2017-05-03)
PROC: 0FB13ZX Excision of Right Lobe Liver, Percutaneous Approach, Diagnostic (ICD-10-PCS; principal; 2017-05-03 13:00)
DX: A41.9 Sepsis, unspecified organism (principal); J18.9 Pneumonia, unspecified organism; D65 Disseminated intravascular coagulation [defibrination syndrome]; J96.90 Respiratory failure, unspecified, unspecified whether with hypoxia or hypercapnia; K72.00 Acute and subacute hepatic failure without coma; N17.0 Acute kidney failure with tubular necrosis; I13.0 Hypertensive heart and chronic kidney disease with heart failure and stage 1 through stage 4 chronic kidney disease, or unspecified chronic kidney disease; T81.19XA Other postprocedural shock, initial encounter; C78.7 Secondary malignant neoplasm of liver and intrahepatic bile duct; C34.90 Malignant neoplasm of unspecified part of unspecified bronchus or lung; J44.0 Chronic obstructive pulmonary disease with (acute) lower respiratory infection; E87.2 Acidosis; K55.1 Chronic vascular disorders of intestine; I42.0 Dilated cardiomyopathy; Z99.11 Dependence on respirator [ventilator] status; J84.10 Pulmonary fibrosis, unspecified; I50.9 Heart failure, unspecified; M81.0 Age-related osteoporosis without current pathological fracture; D64.9 Anemia, unspecified; M19.90 Unspecified osteoarthritis, unspecified site; K21.9 Gastro-esophageal reflux disease without esophagitis; N18.9 Chronic kidney disease, unspecified; E78.5 Hyperlipidemia, unspecified; Y95 Nosocomial condition; R65.20 Severe sepsis without septic shock; I25.5 Ischemic cardiomyopathy; I25.10 Atherosclerotic heart disease of native coronary artery without angina pectoris; E87.5 Hyperkalemia; Z66 Do not resuscitate; Y84.8 Other medical procedures as the cause of abnormal reaction of the patient, or of later complication, without mention of misadventure at the time of the procedure; Z79.82 Long term (current) use of aspirin; Z95.5 Presence of coronary angioplasty implant and graft; I25.2 Old myocardial infarction; Z87.891 Personal history of nicotine dependence